=== PATIENT | female | born 1940 | race Caucasian/White ===

== ENCOUNTER 2019-12-29 10:27 | Emergency (ER) | payer MEDICARE, OTHER, SELFPAY ==
--- NOTE | ~2019-12-29 | XR_ITS ---
EXAMINATION: XR chest 2V DATE: 12/29/2019 10:57 INDICATION: Wheezing and difficulty breathing TECHNIQUE: frontal and lateral views of the chest were obtained. COMPARISON: Chest radiograph dated 04/15/2016 FINDINGS: Eventration at the anterior right hemidiaphragm. Calcified nodules in the left lower lung zone and ca lcified left hilar lymph nodes consistent with old granulomatous disease. No other airspace opacities , pulmonary edema, pleural effusion or pneumothorax. Cardiomediastinal silhouette is normal. Mitral a nnular calcification. Mild thoracolumbar spondylosis. IMPRESSION: 1. No acute cardiopulmonary disease. Reviewed, dictated and finalized at location A. [employer]OR [employer] D[employer] TECHN[employer]Y
[2019-12-29 10:41] VITALS: BP 125/52; PULSE 59; RESP 16; TEMP 36.9; O2SAT 97
--- NOTE | 2019-12-29 11:04 | ED.SOB ---
HPI - SOB/Dyspnea General Chief Complaint: Shortness of Breath/Dyspnea Stated Complaint: SOB Time Seen by Provider: 12/29/19 10:54 Source: patient and RN notes reviewed Mode of arrival: ambulatory Limitations: no limitations History of Present Illness HPI Narrative: Patient presents today with intermittent shortness of breath x2 years. States her shortness of breath is no worse than it normally is. She has not been using her rescue inhaler more frequently than normal. States that she talked to someone in her [facility] compounder office last week and was told to go to the hospital, so she came to express care instead. She does not know why they instructed her to go to the hospital. She has an appointment at her liquid comp[facility] office in 2 weeks. She does report some wheezing. States she has been told she has asthma in the past. Patient is a former smoker. Denies any additional symptoms. MD elicited complaint: shortness of breath Related Data Home Medications Medication Instructions Recorded Confirmed losartan 100 mg tablet 100 mg PO DAILY 12/04/19 12/29/19 oxybutynin chloride 5 mg tablet 5 mg PO BID 12/04/19 12/29/19 temazepam 30 mg capsule 30 mg PO ONCE PRN 12/04/19 12/29/19 aspirin 81 mg tablet,delayed 81 mg PO DAILY 12/26/19 12/29/19 release biotin 10,000 mcg capsule 10,000 mcg PO DAILY 12/26/19 12/29/19 citalopram 40 mg tablet 20 mg PO DAILY 12/26/19 12/29/19 fluticasone furoate 200 1 inhalation INHALATION DAILY 12/26/19 12/29/19 mcg-vilanterol 25 mcg/dose inhalation powder hypertonic nasal wash 1 spray NASAL ONCE 12/26/19 metformin 500 mg tablet 500 mg PO BID 12/26/19 12/29/19 multivitamin 1 tablet PO DAILY 12/26/19 12/29/19 ondansetron 8 mg disintegrating 8 mg PO Q8H 12/26/19 tablet ranitidine HCl 150 mg tablet 150 mg PO DAILY 12/26/19 12/29/19 triamcinolone acetonide 0.1 % 1 applic TOPICAL BID 12/26/19 topical ointment albuterol sulfate [Ventolin HFA] INHALATION 12/29/19 mirabegron [Myrbetriq] 50 mg PO DAILY 12/29/19 12/29/19 Allergies Allergy/AdvReac Type Severity Reaction Status Date / Time codeine Allergy Mild MAKES ME Verified 12/26/19 09:06 REALLY JUMPY Review of Systems Review of Systems: Narrative: CONSTITUTIONAL: Denies body aches, fever, chills, or sweats. EYES: Denies visual changes, redness, or discharge. ENT: Denies rhinorrhea, congestion, sore throat, or otalgia. CARDIOVASCULAR: Denies chest pain, palpitations, or edema. RESPIRATORY: Denies cough. + Shortness of breath GASTROINTESTINAL: Denies abdominal pain, nausea, vomiting, or diarrhea. GENITOURINARY: Denies dysuria or hematuria. SKIN: Denies rash, itching, or wounds. MUSCULOSKELETAL: Denies back pain, joint pain, or myalgia. NEUROLOGIC: Denies headache, numbness, tingling, or weakness. PSYCH: Denies depression or anxiety. [facility] Past Medical History Medical History (Updated 12/29/19 @ 11:31 by Veroniac Bartholomew, [facility], ) Asthma GERD (gastroesophageal reflux disease) Hypercholesterolemia Hypertension Surgical History Surgical History (Updated 12/26/19 @ 09:19 by Suzette Williamson [facility]) History of appendectomy History of eye surgery History of hernia repair History of splenectomy History of total bilateral knee replacement (TKR) Social History Social History (Updated 12/26/19 @ 09:18 by Suzette Williamson [facility]) Smoking status: Former smoker Second hand tobacco smoke exposure: No Smoking end date: 11/13/12 Alcohol intake: never Substance use: never Substance use type: does not use Gender identity (if verbalized by the patient): Female Comments At time of signature, I have reviewed and agree with nursing past medical, surgical, social and family history unless otherwise noted. Please see nursing chart for further information. There is no relevant family history pertinent to the presenting complaint Exam Narrative: Exam Narrative: GENERAL: Well-appearing, well-nourished, and in no acute dist
== END 2019-12-29 11:33 | disposition home or self-care (01) ==
PROVIDERS: Emergency Provider Nurse Practitioner; PCP Family Medicine
DX: R06.02 Shortness of breath (principal); Z87.891 Personal history of nicotine dependence; J45.909 Unspecified asthma, uncomplicated; K21.9 Gastro-esophageal reflux disease without esophagitis; E78.00 Pure hypercholesterolemia, unspecified; I10 Essential (primary) hypertension; Z96.653 Presence of artificial knee joint, bilateral
CPT/HCPCS: 71046; 99213; G0463

== ENCOUNTER → 2020-01-10 17:06 | Outpatient (CLI) | payer MEDICARE, OTHER, SELFPAY ==
--- NOTE | ~2020-01-10 | MM_ITS ---
EXAMINATION: MM screening evaristo BI w anup HISTORY: Screening mammogram TECHNIQUE: Craniocaudal and mediolateral oblique 3-D tomosynthesis images were obtained and synthetic 2-D images were generated. CAD analysis was submitted and interpreted. COMPARISON: 12/07/2018, 09/13/2017, 08/31/2016 bilateral digital screening mammogram examinations BREAST PARENCHYMAL COMPOSITION: The breasts are almost entirely fatty. FINDINGS: Stable benign-appearing bilateral intramammary lymph nodes. Occasional benign calcification s. There is no evidence of suspicious mass, calcification, or architectural distortion to suggest mal ignancy in either breast. There has been no suspicious interval change. IMPRESSION: 1. No mammographic evidence of malignancy. 2. Recommend routine screening mammography in one year. BI-RADS Category 2: Benign finding(s). Reviewed, dictated and finalized at location A. E MAKER
== END ==
PROVIDERS: PCP Family Medicine; Visit Provider Family Medicine
DX: Z12.31 Encounter for screening mammogram for malignant neoplasm of breast (principal)
CPT/HCPCS: 77063; 77067

== ENCOUNTER 2020-01-15 12:41 | Outpatient (CLI) | payer MEDICARE, OTHER, SELFPAY ==
--- NOTE | 2020-01-16 00:29 | WPDPFTINT ---
PFT Interpretation PFT Interpretation: DOS: 01/15/2020 REQUESTING: Dr. Schulte REASON FOR TESTING: Shortness of breath PULMONARY FUNCTION TESTS Results are reproducible. Spirometry: Normal FEV1, FVC, FEV1 % without change after bronchodilator. Lung volumes: Normal TLC. RV/TLC ratio is increased which is consistent with air trapping. Slow vital capacity 93% is higher than the FVC 80%, and this may indicate dynamic air trapping. Mild increase in airway resistance 158%. Diffusion: DLCO mildly decreased 68%. Flow volume loop: Unremarkable. IMPRESSION: Compared to 01/09/2019, values are similar. Normal spirometry without response to bronchodilator. Total lung capacity is higher now 92%, increased from 80%. Spirometry and DLCO are similar. Obstructive process is present with increased RV/TLC and dynamic air trapping. Lack of response to bronchodilator does not preclude use if clinically indicated. Mora Chapman MD
--- NOTE | 2020-01-16 00:40 | WPDSIXMINUTE ---
Six Minute Walk Six Minute Walk: DOS: 01/15/2020 REQUESTING: Emiliano Draper NP REASON FOR TESTING: Shortness of breath SIX MINUTE WALK This test was conducted per ATS guidelines. The test was conducted on room air. Initial saturation was 96%, pulse 58. The patient walked without stopping, completing 900 feet/274 meters. The ending saturation was 96%, and pulse was 75. IMPRESSION: This study shows no desaturation with walking, and normal distance walked for age. No supplemental oxygen indicated with exertion. Mora Chapman MD
== END 2020-01-15 12:42 | disposition home or self-care (01) ==
PROVIDERS: PCP Family Medicine; Visit Provider Internal Medicine Critical Care Medicine
DX: J44.9 Chronic obstructive pulmonary disease, unspecified (principal)
CPT/HCPCS: 94060; 94726; 94729

== ENCOUNTER 2020-07-11 11:06 | Emergency (ER) | payer MEDICARE, OTHER, SELFPAY ==
[2020-07-11 11:23] VITALS: BP 120/60; PULSE 65; RESP 20; TEMP 37.1; O2SAT 97
--- NOTE | 2020-07-11 12:19 | ED.URI ---
HPI - URI/Sore Throat General Chief Complaint: Upper Respiratory Infection <FRED Elena Last Filed: 07/11/20 12:24> Stated Complaint: ST <FRED Elena Last Filed: 07/11/20 12:24> Time Seen by Provider: 07/11/20 11:50 <FRED Elena Last Filed: 07/11/20 12:24> Source: patient <FRED Elena Last Filed: 07/11/20 12:24> Mode of arrival: ambulatory <FRED Elena Last Filed: 07/11/20 12:24> Limitations: no limitations <FRED Elena Last Filed: 07/11/20 12:24> History of Present Illness HPI Narrative: This is a 79 year old female that presents to the ER for sore throat x 1 week. Also reports congestion and sinus pain. Denies fever, cough, or shortness of breath. <FRED Elena Last Filed: 07/11/20 12:24> Related Data Home Medications: Home Medications Medication Instructions Recorded Confirmed aspirin 81 mg tablet,delayed 81 mg PO DAILY 12/26/19 03/31/20 release biotin 10,000 mcg capsule 10,000 mcg PO DAILY 12/26/19 03/31/20 hypertonic nasal wash 1 spray NASAL ONCE 12/26/19 03/31/20 multivitamin 1 tablet PO DAILY 12/26/19 03/31/20 ranitidine HCl 150 mg tablet 150 mg PO DAILY 12/26/19 03/31/20 triamcinolone acetonide 0.1 % 1 applic TOPICAL BID 12/26/19 03/31/20 topical ointment mirabegron [Myrbetriq] 50 mg PO DAILY 12/29/19 03/31/20 <FRED Elena Last Filed: 07/11/20 12:24> Allergies/Adverse Reactions: Allergies Allergy/AdvReac Type Severity Reaction Status Date / Time codeine Allergy Mild MAKES ME Verified 07/11/20 11:26 REALLY JUMPY <FRED Elena Last Filed: 07/11/20 12:24> Review of Systems Review of Systems: Narrative: CONSTITUTIONAL: Denies fever ENT: Reports rhinorrhea, congestion, sore throat RESPIRATORY: Denies cough or dyspnea. <Melanie Tavarez PA-C - Last Filed: 07/11/20 12:24> All systems reviewed & are unremarkable except as noted in HPI and below <Melanie Tavarez PA-C - Last Filed: 07/11/20 12:24> PMFSH Past Medical History Medical History: Medical History (Updated 07/11/20 @ 12:23 by Melanie Tavarez PA-C) Allergic rhinitis Anxiety Asthma Benign hypertension Benign paroxysmal positional vertigo, bilateral Cheilitis Chronic obstructive pulmonary disease Chronic sinusitis Cough due to JAMILA inhibitor Depressive disorder, not elsewhere classified DAQUAN (generalized anxiety disorder) GERD (gastroesophageal reflux disease) Hearing loss Hypercholesterolemia Hypertension Hyponatremia Impaired glucose tolerance Insomnia Migraine Obstructive sleep apnea Orthostatic hypotension Other and unspecified hyperlipidemia SOB (shortness of breath) Tobacco abuse Type 2 diabetes mellitus without complication, without long-term current use of insulin Umbilical hernia without obstruction or gangrene Unsteady gait Ventral hernia without obstruction or gangrene Vertigo <Melanie Tavarez PA-C - Last Filed: 07/11/20 12:24> Surgical History Surgical History: Surgical History History of appendectomy History of eye surgery History of hernia repair History of splenectomy History of total bilateral knee replacement (TKR) <Melanie Tavarez PA-C - Last Filed: 07/11/20 12:24> Social History Social History: Social History (Updated 01/01/20 @ 11:43 by Mark Hall CMA) Years smoked: 30 Smoking status: Former smoker Tobacco type: cigarettes Second hand tobacco smoke exposure: No Smoking end date: 11/13/12 Alcohol intake: never Substance use: never Substance use type: does not use Gender identity (if verbalized by the patient): Female <Melanie Tavarez PA-C - Last Filed: 07/11/20 12:24> Exam Narrative: Exam Narrative: GENERAL: Well-appearing, well-nourished, and in no acute distress. HEAD: Normocephalic, atraumatic. EYES: EOMI. ENT: Nares clear, no
[2020-07-11 13:36] VITALS: BP 124/62; PULSE 68; RESP 20; O2SAT 98
== END 2020-07-11 13:38 | disposition home or self-care (01) ==
LOC: ANHED 12:29
PROVIDERS: Emergency Provider Emergency Medicine; PCP Family Medicine
DX: J01.00 Acute maxillary sinusitis, unspecified (principal); I10 Essential (primary) hypertension; J44.9 Chronic obstructive pulmonary disease, unspecified; F32.9 Major depressive disorder, single episode, unspecified; F41.1 Generalized anxiety disorder; E78.00 Pure hypercholesterolemia, unspecified; G47.33 Obstructive sleep apnea (adult) (pediatric); E11.9 Type 2 diabetes mellitus without complications; Z79.82 Long term (current) use of aspirin; Z79.84 Long term (current) use of oral hypoglycemic drugs
CPT/HCPCS: 87081; 87880; 99283

== ENCOUNTER 2020-12-21 15:12 | Emergency (ER) | payer MEDICARE, OTHER, SELFPAY ==
--- NOTE | ~2020-12-21 | CT_ITS ---
EXAMINATION: 1. CT facial & cervical spine wo DATE: 12/21/2020 15:46 INDICATION: Head and facial injury post fall. TECHNIQUE: 1. Computed tomography (CT) of the maxillofacial region and of the cervical spine were performed with out intravenous contrast. Sagittal and coronal reconstructions of both regions were obtained. Automat ed exposure control and iterative reconstruction technique were employed. The dose-length product was 522 mGy-cm. COMPARISON: None. FINDINGS: Maxillofacial CT: Small right frontal scalp hematoma. No maxillofacial fractures. Changes of bilateral intraocular lens replacement. Small mucous retention cyst in the left frontal sinus. Mild mucosal thickening the ante rior bilateral ethmoid air cells. Mastoid air cells and middle ear cavities are clear bilaterally. Cervical spine CT: Straightening of the normal cervical lordosis. 2 mm anterolisthesis C7 on T1 and 1 mm anterolisthesis of T1 on T2. Vertebral body heights are normal. No fracture. 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 Moderate disc height loss at C2-C3, T1-T2 and T2-T3. Severe disc height loss at the intervening levels from C2-C3 through C7-T1. Atherosclerotic calcific a cyst at the bilateral caroti d bulbs, left greater than right. Cervical soft tissues are otherwise unremarkable. Visualized airway and apices of the lungs are clear.The following disc levels are specifically discussed: C2-C3: Disc is bulging. There is mild left and moderate right uncovertebral joint osteoarthritis. The re is severe bilateral facet joint osteoarthritis. There is old right neural foraminal stenosis. Ther e is mild central canal stenosis. C3-C4: Solid osseous fusion across the disc space and bilateral facet and uncovertebral joints. There is mild right and mild to moderate left neural foraminal stenosis. There is mild central canal steno sis. C4-C5: Posterior disc osteophyte complex with prominent ossification of the posterior longitudinal li gament. There is severe bilateral uncovertebral joint osteoarthritis. There is moderate right and sev ere left facet joint osteoarthritis. There is moderate bilateral neural foraminal stenosis. There is moderate central canal stenosis. C5-C6: Posterior disc osteophyte complex. There is severe bilateral uncovertebral joint osteoarthriti s. There is moderate left and severe right facet joint osteoarthritis. There is moderate bilateral ne ural foraminal stenosis. There is mild central canal stenosis. C6-C7: Posterior disc osteophyte complex. There is moderate left and severe right uncovertebral joint osteoarthritis. There is moderate left and severe right facet joint osteoarthritis. There is mild le ft and mild to moderate right neural foraminal stenosis. There is mild central canal stenosis. C7-T1: Posterior disc osteophyte complex. There is mild bilateral uncovertebral joint osteoarthritis. There is severe bilateral facet joint osteoarthritis. There is mild bilateral neural foraminal steno sis. There is mild central canal stenosis. IMPRESSION: 1. No acute maxillofacial or cervical osseous abnormality. 2. Severe cervical spondylosis. Reviewed, dictated and finalized at location A. MING OPERATOR
--- NOTE | ~2020-12-21 | CT_ITS ---
EXAMINATION: CT brain wo con DATE: 12/21/2020 15:45 INDICATION: Fall with facial injury TECHNIQUE: Computed tomography (CT) of the head was performed without intravenous contrast. Sagittal and coronal reconstructions were performed. The mA was adjusted according to patient size. Iterative reconstruction technique was employed. The dose-length product was 605.33 mGy-cm. COMPARISON: Brain MR dated 04/14/2016 FINDINGS: Small right frontal scalp hematoma. No fracture. No acute intracranial hemorrhage, acute infarction o r abnormal extra axial fluid collection. There is mild scattered white matter hypoattenuation consist ent with chronic small vessel ischemic disease. Symmetric prominence of the sulci consistent with mil d age-appropriate diffuse cerebral volume loss. Ventricles are normal and symmetric. No mass/mass eff ect. Changes of bilateral intraocular lens replacement. The orbits, paranasal sinuses and mastoid air cells are normal. IMPRESSION: 1. No fracture or acute intracranial process. 2. Age-related changes including mild diffuse volume loss and mild scattered white matter hypoattenua tion consistent with chronic small vessel ischemic disease. Reviewed, dictated and finalized at location A. CAMP ATTENDANT IMPRESSION: 1. No fracture or acute intracranial process. 2. Age-related changes including mild diffuse volume loss and mild scattered wh ite matter hypoattenuation consistent with chronic small vessel ischemic diseas e.
[2020-12-21 15:15] VITALS: BP 159/70; PULSE 60; RESP 16; TEMP 36.2; O2SAT 97
--- NOTE | 2020-12-21 16:24 | ED.HEATRA ---
HPI - Head Injury General Chief complaint: Head Injury Stated complaint: tripped, fell and hit head Time Seen by Provider: 12/21/20 15:55 Source: patient Mode of arrival: ambulatory Limitations: no limitations History of Present Illness HPI Narrative: This patient is a 79 year old female with history of diabetes and hypertension who presents for evaluation of a head injury. She states she was chasing after her dog when she tripped and fell. She fell forward hitting on face on concrete. She denies LOC. She has bruising and abrasions to her face. She denies neck pain, extremity pain. She denies any other complaints. She reports her last tetanus has been in past 5 years. Related Data Home Medications Medication Instructions Recorded Confirmed aspirin 81 mg tablet,delayed 81 mg PO DAILY 12/26/19 07/31/20 release biotin 10,000 mcg capsule 10,000 mcg PO DAILY 12/26/19 07/31/20 hypertonic nasal wash spray aerosol 1 spray NASAL ONCE 12/26/19 07/31/20 multivitamin 1 tablet PO DAILY 12/26/19 07/31/20 triamcinolone acetonide 0.1 % 1 applic TOPICAL BID 12/26/19 07/31/20 topical ointment mirabegron [Myrbetriq] 50 mg PO DAILY 12/29/19 07/31/20 collagen (bovine) 100 % topical % TOPICAL 07/16/20 07/31/20 powder in packet Allergies Allergy/AdvReac Type Severity Reaction Status Date / Time codeine Allergy Mild MAKES ME Verified 07/31/20 10:38 REALLY JUMPY Review of Systems Review of Systems: All systems reviewed & are unremarkable except as noted in HPI and below Constitutional: Constitutional: Denies chills and Denies fever(s) Cardiovascular: Cardiovascular: Denies chest pain Respiratory: Respiratory: Denies cough and Denies dyspnea Genitourinary: Genitourinary: Denies flank pain Musculoskeletal: Musculoskeletal: Denies back pain Neurologic: Denies dizziness, Denies syncope, Denies headache(s) and Denies focal weakness PMFSH Past Medical History Medical History Allergic rhinitis Anxiety Asthma Benign hypertension Benign paroxysmal positional vertigo, bilateral Cheilitis Chronic obstructive pulmonary disease Chronic sinusitis Cough due to JAMILA inhibitor Depressive disorder, not elsewhere classified DAQUAN (generalized anxiety disorder) GERD (gastroesophageal reflux disease) Hearing loss Hypercholesterolemia Hypertension Hyponatremia Impaired glucose tolerance Insomnia Migraine Obstructive sleep apnea Orthostatic hypotension Other and unspecified hyperlipidemia SOB (shortness of breath) Tobacco abuse She smoked about 5 cigs/day for about 40 years but was also exposed to second hand smoke from her and parents. No longer smoking, quit 2012. Type 2 diabetes mellitus without complication, without long-term current use of insulin Umbilical hernia without obstruction or gangrene Unsteady gait Ventral hernia without obstruction or gangrene Vertigo Surgical History Surgical History History of appendectomy History of eye surgery History of hernia repair History of splenectomy History of total bilateral knee replacement (TKR) Family History Family History Sibling Family history of elevated blood lipids Family history of malignant neoplasm Family history of coronary artery disease Family history of premature coronary heart disease Family history of cardiovascular disease Family history of heart disease in male family member before age 55 Father Family history of heart disease in male family member before age 55 Family history of cardiovascular disease Family history of coronary artery disease, Onset Age: 44 Mother Family history of heart disease in male family member before age 55 Family history of coronary artery disease Acute myocardial infarction Grandparent Diabetes mellitus Other Family history of arth
[2020-12-21 16:51] VITALS: BP 111/60; PULSE 56; RESP 20; O2SAT 95
== END 2020-12-21 16:53 | disposition home or self-care (01) ==
PROVIDERS: Emergency Provider General Practice
DX: S00.83XA Contusion of other part of head, initial encounter (principal); S00.31XA Abrasion of nose, initial encounter; J44.9 Chronic obstructive pulmonary disease, unspecified; I10 Essential (primary) hypertension; K21.9 Gastro-esophageal reflux disease without esophagitis; E78.00 Pure hypercholesterolemia, unspecified; G47.33 Obstructive sleep apnea (adult) (pediatric); Z87.891 Personal history of nicotine dependence; Z77.22 Contact with and (suspected) exposure to environmental tobacco smoke (acute) (chronic); Z96.653 Presence of artificial knee joint, bilateral; Z79.82 Long term (current) use of aspirin; M47.812 Spondylosis without myelopathy or radiculopathy, cervical region; W01.0XXA Fall on same level from slipping, tripping and stumbling without subsequent striking against object, initial encounter
CPT/HCPCS: 70450; 70486; 72125; 99284

== ENCOUNTER → 2021-07-13 10:41 | Outpatient (CLI) | payer MEDICARE, OTHER, SELFPAY ==
--- NOTE | ~2021-07-13 | MM_ITS ---
EXAMINATION: MM screening evaristo BI w anup HISTORY: Screening TECHNIQUE: Craniocaudal and mediolateral oblique 3-D tomosynthesis images were obtained and synthetic 2-D images were generated. CAD analysis was submitted and interpreted. COMPARISON: Comparison to multiple prior studies sequentially, with oldest reviewed study dated 08/06. BREAST PARENCHYMAL COMPOSITION: There are scattered areas of fibroglandular density. FINDINGS: There is no evidence of suspicious mass, calcification, or architectural distortion to sugg est malignancy in either breast. There has been no suspicious interval change. IMPRESSION: 1. No mammographic evidence of malignancy. 2. Recommend routine screening mammography in one year. BI-RADS Category 1: Negative Reviewed, dictated and finalized at location A.
== END ==
PROVIDERS: PCP Physician Assistant; Visit Provider Physician Assistant
DX: Z12.31 Encounter for screening mammogram for malignant neoplasm of breast (principal)
CPT/HCPCS: 77063; 77067

== ENCOUNTER → 2021-09-24 14:54 | Outpatient (CLI) | payer MEDICARE, OTHER, SELFPAY ==
--- NOTE | ~2021-09-24 | XR_ITS ---
EXAMINATION: XR foot LT min 3V DATE: 09/24/2021 15:06 INDICATION: Left foot pain TECHNIQUE: Dorsoplantar, lateral, and 2 oblique views of the left foot were obtained. COMPARISON: None. FINDINGS: There is no fracture, dislocation, or subluxation. Mild osteoarthritis is noted at the firs t metatarsophalangeal joint. There is moderate osteoarthritis of multiple interphalangeal joints. The soft tissues are unremarkable. Posterior and plantar calcaneal enthesophytes are noted. IMPRESSION: 1. Osteoarthritis without acute osseous abnormality. Reviewed, dictated and finalized at location B. CH THERAPIST TECHNICIAN
== END ==
PROVIDERS: PCP Family Medicine; Visit Provider Physician Assistant
DX: M19.072 Primary osteoarthritis, left ankle and foot (principal)
CPT/HCPCS: 73630

== ENCOUNTER 2021-12-08 09:33 | Outpatient (CLI) | payer MEDICARE, OTHER, SELFPAY ==
--- NOTE | 2021-12-08 09:48 | ECHO_ITS ---
Patient Info Name: Sonal Burleson Age: 80 years : 1940 Gender: Female Ht: 61 in Wt: 233 lbs BSA: 2.20 m2 HR: 61 bpm BP: 138 / 77 mmHg Heart Rhythm: Sinus Rhythm Technical Quality: Good Exam Date: 12/08/2021 10:12 AM Exam Location: [facility] Patient Status: Outpatient Admit Date: 12/08/2021 Staff Ordering Physician: Emiliano Draper APRN Lean Facilitator: Kala Wagner RDCS Attending Provider: Emiliano Draper APRN Referring Physician: Baron MAURICE; Exam Type: CA echo doppler color flow Study Info Indications - short of breath Complete two-dimensional, color flow and Doppler transthoracic echocardiogram is performed. Summary 1. Complete two-dimensional, color flow and Doppler transthoracic echocardiogram is performed. 2. Left ventricular chamber dimension is normal. 3. Left ventricular systolic function is normal, estimated at 60-65%. 4. There is mildly increased left ventricular wall thickness. 5. The left ventricular diastolic function is abnormal. 6. Left atrial chamber dimension is moderately enlarged. 7. There is mild aortic valve stenosis with a peak velocity of 195 cm/s, mean gradient of 9 mmHg, and aortic valve area of 1.9 cm2. Left Ventricle Left ventricular chamber dimension is normal. Left ventricular systolic function is normal, estimated at 60-65%. There is mildly increased left ventricular wall thickness. The left ventricular diastolic function is abnormal. Right Ventricle Right ventricular chamber dimension is normal. Right ventricular systolic function is normal. Left Atria Left atrial chamber dimension is moderately enlarged. Right Atria Right atrial chamber dimension is mildly enlarged. Aortic Valve The aortic valve is not well visualized. There is mild aortic valve stenosis with a peak velocity of 195 cm/s, mean gradient of 9 mmHg, and aortic valve area of 1.9 cm2. There is no aortic valve regurgitation. Pulmonic Valve The pulmonic valve is not well visualized. Mitral Valve The mitral valve has thickened leaflets. There is trace mitral valve regurgitation. The mitral valve annulus is severely calcified. Tricuspid Valve The tricuspid valve leaflets are normal. There is trace tricuspid valve regurgitation. No pulmonary hypertension, estimated pulmonary arterial systolic pressure is 30 mmHg. Pericardium/Pleural The pericardium appears epicardial fat pad. There is trivial pericardial effusion. Inferior Vena Cava Normal inferior vena cava with >50% collapse upon inspiration consistent with normal right atrial pressure, 5 mmHg. Aorta The aortic root size at the sinus of Valsalva is normal. There is mild aortic atherosclerosis. Left Ventricular Outflow Tract Name Value Normal LVOT 2D LVOT Diameter 2.0 cm LVOT Doppler LVOT Peak Gradient 5 mmHg LVOT Mean Gradient 3 mmHg LVOT VTI 29 cm LVOT VTI/AV VTI Ratio 0.6 LVOT Stroke Volume 92 ml LVOT CO 15.9 l/min
== END 2021-12-08 09:34 | disposition home or self-care (01) ==
LOC: ANHCARD 09:34
PROVIDERS: PCP Family Medicine; Visit Provider Nurse Practitioner Family
DX: R06.02 Shortness of breath (principal); R93.1 Abnormal findings on diagnostic imaging of heart and coronary circulation; I51.7 Cardiomegaly
CPT/HCPCS: 93306

== ENCOUNTER 2022-05-06 08:16 | Emergency (ER) | payer MEDICARE, OTHER, SELFPAY ==
[2022-05-06 08:23] VITALS: BP 147/66; PULSE 62; RESP 18; TEMP 36.7; O2SAT 97
--- NOTE | 2022-05-06 09:05 | ED.GENADULT ---
HPI - General Adult General Chief complaint: Extremity Problem,Nontraumatic Stated complaint: bilateral hip pain - unable to sleep due to pain Time Seen by Provider: 05/06/22 08:20 History of Present Illness HPI narrative: Patient is an 81-year-old female who presents ER with bilateral hip pain. Reports she has history of severe osteoarthritis. She has seen her orthopedic surgeon Dr. Fritz and he reports she needs to lose 18 pounds before she can have a hip replacement. Patient struggled with dieting. She reports has been taking Tylenol for her pain. She has no new swelling or fevers or chills. No recent falls or injuries. Reports she is unable to sleep last night despite taking her insomnia medication so she came in to receive pain medication and sleep medication. Related Data Home Medications Medication Instructions Recorded Confirmed aspirin 81 mg tablet,delayed 81 mg PO DAILY 12/26/19 04/04/22 release (Adult Low Dose Aspirin) biotin 10,000 mcg capsule 10,000 mcg PO DAILY 12/26/19 04/04/22 multivitamin (Daily Multi-Vitamin 1 tablet PO DAILY 12/26/19 04/04/22 tablet) triamcinolone acetonide 0.1 % 1 applic topical BID 12/26/19 04/04/22 topical ointment mirabegron 50 mg tablet,extended 50 mg PO DAILY 12/29/19 04/04/22 release 24 hr (Myrbetriq) collagen (bovine) 100 % topical % topical 07/16/20 04/04/22 powder in packet oxybutynin chloride 5 mg tablet 5 mg PO DAILY 11/24/21 04/04/22 Allergies Allergy/AdvReac Type Severity Reaction Status Date / Time codeine Allergy Mild MAKES ME Verified 04/04/22 11:41 REALLY JUMPY Review of Systems Review of Systems: All systems reviewed & are unremarkable except as noted in HPI and below Constitutional: Constitutional: Denies chills, Reports fatigue and Denies fever(s) Musculoskeletal: Musculoskeletal: Reports arthralgias, Denies joint swelling and Denies muscle cramps Neurologic: Denies syncope, Denies focal weakness and Reports numbness (chronic) [facility] Past Medical History Medical History Allergic rhinitis Anxiety Asthma Benign hypertension Benign paroxysmal positional vertigo, bilateral Cheilitis Chronic obstructive pulmonary disease Chronic sinusitis Cough due to JAMILA inhibitor Depressive disorder, not elsewhere classified DAQUAN (generalized anxiety disorder) GERD (gastroesophageal reflux disease) Hearing loss Hypercholesterolemia Hypertension Hyponatremia Impaired glucose tolerance Insomnia Migraine Obstructive sleep apnea Orthostatic hypotension Other and unspecified hyperlipidemia SOB (shortness of breath) Tobacco abuse She smoked about 5 cigs/day for about 40 years but was also exposed to second hand smoke from her and parents. No longer smoking, quit 2012. Type 2 diabetes mellitus without complication, without long-term current use of insulin Umbilical hernia without obstruction or gangrene Unsteady gait Ventral hernia without obstruction or gangrene Vertigo Surgical History Surgical History History of appendectomy History of eye surgery History of hernia repair History of splenectomy History of total bilateral knee replacement (TKR) Family History Family History Sibling Family history of elevated blood lipids Family history of malignant neoplasm Family history of coronary artery disease Family history of premature coronary heart disease Family history of cardiovascular disease Family history of heart disease in male family member before age 55 Father Family history of heart disease in male family member before age 55 Family history of cardiovascular disease Family history of coronary artery disease, Onset Age: 44 Mother Family history of heart disease in male family member before age 55 Family history of coronary artery disease Ac
== END 2022-05-06 09:37 | disposition home or self-care (01) ==
PROVIDERS: Emergency Provider Emergency Medicine; PCP Family Medicine
DX: M25.552 Pain in left hip (principal); M25.551 Pain in right hip; G89.29 Other chronic pain; G47.00 Insomnia, unspecified; J44.9 Chronic obstructive pulmonary disease, unspecified; I10 Essential (primary) hypertension; E11.9 Type 2 diabetes mellitus without complications; E78.00 Pure hypercholesterolemia, unspecified; J32.9 Chronic sinusitis, unspecified; K21.9 Gastro-esophageal reflux disease without esophagitis; G47.33 Obstructive sleep apnea (adult) (pediatric); M19.90 Unspecified osteoarthritis, unspecified site; F32.A Depression, unspecified; F41.1 Generalized anxiety disorder; Z79.82 Long term (current) use of aspirin; Z96.653 Presence of artificial knee joint, bilateral; Z90.81 Acquired absence of spleen; Z87.891 Personal history of nicotine dependence; Z79.84 Long term (current) use of oral hypoglycemic drugs
CPT/HCPCS: 99283

== ENCOUNTER 2022-06-02 14:16 | Outpatient (CLI) | payer MEDICARE, OTHER, SELFPAY ==
--- NOTE | ~2022-06-02 | US_ITS ---
US arterial ankle brachial ind INDICATION: Diabetes. Elevated cholesterol. History of smoking. Loss of hair. Claudication. TECHNIQUE: Segmental pressures and plethysmographic and Doppler waveforms of the brachial and lower e xtremity arteries were obtained. COMPARISON: None. FINDINGS: Right and left brachial artery pressures of 120 mm Hg and 122 mm Hg, respectively, are concordant (no rmal difference <= 30 mmHg). The right ankle-brachial index (CARLOS) is 1.25 (normal >= 0.9-1.0). The right great toe-brachial index (TBI) is 0.41 (normal >= 0.60). The left CARLOS is 1.12. The left TBI is 0.33. IMPRESSION: 1. Normal bilateral ankle-brachial indices. 2: Diminished bilateral toe brachial indices consistent with peripheral arterial disease below the an kles. Reviewed, dictated and finalized at location A. IMPRESSION: 1. Normal bilateral ankle-brachial indices. 2: Diminished bilateral toe brachial indices consistent with peripheral arteria l disease below the ankles.
== END 2022-06-02 14:17 | disposition home or self-care (01) ==
PROVIDERS: PCP Family Medicine; Visit Provider Physician Assistant
DX: R09.89 Other specified symptoms and signs involving the circulatory and respiratory systems (principal)
CPT/HCPCS: 93922

== ENCOUNTER 2022-09-21 09:15 | Outpatient (RCR) | payer MEDICARE, OTHER, SELFPAY | END 2022-10-03 09:55 | disposition home or self-care (01) | LOC: ANHDMC 09:15 | PROVIDERS: PCP Family Medicine; Referring Provider Physician Assistant; Visit Provider Physician Assistant | DX: E11.9 Type 2 diabetes mellitus without complications (principal); Z71.89 Other specified counseling | CPT/HCPCS: 99199; G0108 ==

== ENCOUNTER 2022-12-06 10:43 | Outpatient (CLI) | payer MEDICARE, OTHER, SELFPAY ==
--- NOTE | 2022-12-06 11:26 | ECG_ITS ---
Measurements Intervals Fried[place] Rate: 86 P: -38 IL: 190 QRS: 5 QRSD: 98 T: 31 QT: 376 QTc: 450 Interpretive Statements ECTOPIC ATRIAL RHYTHM ATRIAL PREMATURE COMPLEXES ABNORMAL ECG COMPARED TO ECG 06/18/2019 11:43:42 NO SIGNIFICANT CHANGES Electronically Signed On 12-06-2022 12:17:52 VENDING ENTERPRISES SUPERVISOR by Roc Salomon D.O.
[2022-12-06 11:39] LABS: Hematocrit 39.1 % (37.0-47.0); Hemoglobin 13.2 g/dL (12.0-15.0)
[2022-12-06 11:49] LABS: Albumin Level 4.5 g/dL (3.5-5.1); Estimated Glomerular Filt Rate > 60; Glucose 99 mg/dL (65-110)
[2022-12-06 11:50] LABS: Hemoglobin A1C 5.3 % (<5.7)
[2022-12-06 11:53] LABS: Urine Cotinine NEGATIVE
== END 2022-12-06 10:44 | disposition home or self-care (01) ==
LOC: ANHLAB 10:47
PROVIDERS: PCP Family Medicine; Visit Provider Orthopaedic Surgery
DX: I10 Essential (primary) hypertension (principal); R94.31 Abnormal electrocardiogram [ECG] [EKG]; I35.0 Nonrheumatic aortic (valve) stenosis; E11.9 Type 2 diabetes mellitus without complications; R42 Dizziness and giddiness; M16.11 Unilateral primary osteoarthritis, right hip; E78.00 Pure hypercholesterolemia, unspecified; Z79.899 Other long term (current) drug therapy
CPT/HCPCS: 80307; 82040; 82565; 82947; 83036; 85014; 85018; 93005

== ENCOUNTER 2023-01-10 10:30 | Outpatient (RCR) | payer MEDICARE, OTHER, SELFPAY | END 2023-03-30 08:32 | disposition home or self-care (01) | LOC: ANHDMC 10:30 | PROVIDERS: PCP Family Medicine; Referring Provider Physician Assistant; Visit Provider Physician Assistant | DX: E11.65 Type 2 diabetes mellitus with hyperglycemia (principal); Z71.89 Other specified counseling | CPT/HCPCS: G0108 ==

== ENCOUNTER 2023-02-06 11:55 | Outpatient (CLI) | payer MEDICARE, OTHER, SELFPAY ==
[2023-02-06 13:41] LABS: Basophils Absolute Auto 0.1 K/mm3 (0.0-0.1); Eosinophils Absolute Auto 0.5 K/mm3 (0-0.3); Eosinophils Percent Auto 4.7 % (0-4.4); Hematocrit 41.2 % (37.0-47.0); Hemoglobin 13.6 g/dL (12.0-15.0); Immature Granulocyte Absolute 0.01 K/mm3 (0.00-0.031); Immature Granulocyte Percent A 0.1 % (0-0.5); Lymphocytes Absolute Auto 3.51 K/mm3 (0.9-3.2); Lymphocytes Percent Auto 32.6 % (18.3-44.2); Mean Corpuscular Hemoglobin 32.9 pg (26-34); Mean Corpuscular Volume 99.5 fl (80-100); Mean Platelet Volume 9.1 fl (7.4-10.4); Monocytes Absolute Auto 0.9 K/mm3 (0.1-0.6); Monocytes Percent Auto 8.6 % (2.6-8.5); Neutrophils Absolute Auto 5.7 K/mm3 (1.3-6.7); Platelet Count Result 392 k/mm3 (150-375); Red Blood Count 4.14 M/mm3 (4.2-5.4); Red Cell Distribution Width 13.6 % (11.5-14.5); White Blood Count 10.8 K/mm3 (4.5-10.0)
[2023-02-06 13:59] LABS: Albumin Level 4.5 g/dL (3.5-5.1)
[2023-02-06 14:02] LABS: Anion Gap 7 mmol/L (8-16); Blood Urea Nitrogen 14 mg/dL (7-17); Calcium 9.7 mg/dL (8.4-10.2); Carbon Dioxide 31 mmol/L (22-30); Chloride 94 mmol/L (98-107); Estimated Glomerular Filt Rate > 60; Glucose 94 mg/dL (65-110); Sodium 132 mmol/L (137-145)
[2023-02-06 14:55] LABS: Urine Cotinine NEGATIVE
== END 2023-02-06 11:56 | disposition home or self-care (01) ==
LOC: ANHSURGERY 12:01
PROVIDERS: Anesthesiology; PCP Family Medicine; Visit Provider Orthopaedic Surgery
DX: Z01.812 Encounter for preprocedural laboratory examination (principal); M16.11 Unilateral primary osteoarthritis, right hip; E11.9 Type 2 diabetes mellitus without complications
CPT/HCPCS: 36415; 80048; 80307; 82040; 85025; 87081

== ENCOUNTER 2023-03-02 01:43 | Day surgery (SDC) | payer MEDICARE, OTHER, SELFPAY ==
[2023-02-06 12:02] VITALS: BMI 34.0
--- NOTE | 2023-02-06 12:41 | PC.NURSE ---
Report to the Outpatient Waiting Room, entrance under the green pavilion located off [facility], at time __0630 on date __03/02/23 . Planned Procedure Time: 829 . Time changes happen often and if your time is changed the preop area will call you the afternoon before. - You and your visitor will be asked to self-screen and do not enter if you have any COVID symptoms. - Only one visitor is requested with a max of two and NO children visitors are allowed at this time. - The patient visitor may be requested to leave or wait in car when not with patient due to distancing restrictions. - A mask is optional within the hospital at this time. Patients may have clear liquids (water, carbonated beverages, clear teas, apple juice) until 3 hours prior to surgery with a maximum of 20 ounces. - No food from midnight until time of surgery - Infants may have breast milk until 4 hours before surgery, formula 6 hours prior to surgery. - Children will be allowed to drink immediately following surgery. If applicable, please bring a bottle or sippy cup to assist with drinking. Juice, water, soda, and popsicles are readily available. For infants on formula, please bring formula the day of surgery. Pacifiers are allowed. Take the following medications with a SIP of water the morning of surgery: ___BREO INHALER,CITALOPRAM, DO NOT STOP ANY OF YOUR OTHER PRESCRIPTION MEDICATIONS PRIOR TO SURGERY ?EXCEPT THE FOLLOWING Medications to discontinue per physician ASPIRIN 7 DAYS PRE OP PER DR MCCRARY.LAST DOSE 02/22/23___ALL VITAMINS/SUPPLEMENTS 3 DAYS PRE OP LAST DOSE 02/26/23 Please no make-up, nail mauritian, hairspray, perfume, deodorant, or body powder the day of surgery. No jewelry (including any body piercings) or valuables the day of surgery, leave them at home. Please take a shower or bath the night before, or the morning of, surgery with an antibacterial soap. Wear comfortable, loose fitting clothing. Children are encouraged to wear pajamas. - Jewelry must be removed prior to entering the operating room. Rings and piercings that are not removed may be cut off. - The hospital will not accept responsibility for valuables. - Please leave all valuables, including medications, at home the day of surgery. If you are going home after surgery, a licensed rivet driver must drive you home. - NO public transportation without another adult if you receive anesthesia. - We recommend that an adult stay with you for 24 hours following discharge. - We also recommend that you do not drive, make important decision, drink alcoholic beverages, or take any drugs that were not prescribed by your health care provider for at least 24 hours after your discharge time. For Pediatric surgeries, we recommend two adults accompany the child home. Follow any additional instructions given to you from your surgeon. If you or anyone in your household have experienced Covid symptoms in the past week, please notify your surgeon or the nurse liaison at the phone number below for possible testing. VERBALAND WRITTEN instructions given to _PATIENT AND SON MARK and asked if any additional questions and then verbalized understanding. Patient advised to call surgeon office or pre surgery nurse liaison [phone] if any additional questions.
[2023-02-06 13:01] VITALS: BP 111/73; PULSE 93; RESP 18; TEMP 36.4; O2SAT 97
[2023-03-02] VITALS (12 sets, daily range): BP systolic 91–121; BP diastolic 56–81; PULSE 90–115; RESP 12–18; TEMP 36.2–37.1; O2SAT 92–96; BMI 33.4
--- NOTE | ~2023-03-02 | XR_ITS ---
XR hip RT min 2V DATE: 03/02/2023 11:10 INDICATION: Right total hip replacement TECHNIQUE: AP and crosstable lateral views COMPARISON: None FINDINGS: There is expected postoperative subcutaneous and intra-articular emphysema. Status post right femoral head and neck were resection and right total hip replacement. Normal alignm ent at the right hip joint. No fracture or dislocation, periosteal reaction or bone destruction. Osteopenia. IMPRESSION: Postoperative examination following right total hip arthroplasty Reviewed, dictated and finalized at location L.
[2023-03-02] MEDS: LACTATED RINGERS 1,000 ML 30 ML IV CONT ×2 (07:10→10:45)
[2023-03-02] MEDS: TRANEXAMIC ACID 1,000MG/ISO100 1,000 MG/100 ML BAG 200 MG IVPB (07:13)
[2023-03-02] MEDS: ACETAMINOPHEN 500 MG TABLET 1000 MG PO ×4 (07:13→23:30)
[2023-03-02 07:19] LABS: Glucose Point of Care 104 mg/dl (65-105)
--- NOTE | 2023-03-02 07:21 | WPDANESEPPF ---
Anes - Initial Pre Proc Eval Procedure: Operation Date: 03/02/23 08:30 Proposed Procedures p Right Total Hip Arthroplasty - Kirill Villanueva MD Date/Time: 03/02/23 07:21 Surgeon: Kirill Villanueva MD Pre Op Diagnosis: primary OA right hip Patient Data Age: 82 Gender: F Height: 1.55 m Weight: 80.3 kg Last Vital Signs Temp 36.4 C L 02/06/23 13:01 Pulse 93 02/06/23 13:01 Resp 18 02/06/23 13:01 BP 111/73 02/06/23 13:01 Pulse Ox 97 02/06/23 13:01 O2 Del Method Room Air 02/06/23 13:01 Allergies Allergy/AdvReac Type Severity Reaction Status Date / Time codeine Allergy Mild MAKES ME Verified 03/02/23 07:25 REALLY JUMPY Home Medications Medication Instructions Recorded Confirmed Type lancets (Accu-Chek Fastclix Lancet #100 ea 12/16/19 02/06/23 Rx Drum) aspirin 81 mg tablet,delayed 81 mg PO DAILY 12/26/19 02/06/23 History release (Adult Low Dose Aspirin) biotin 10,000 mcg capsule 10,000 mcg PO DAILY 12/26/19 02/06/23 History mirabegron 50 mg tablet,extended 50 mg PO DAILY 12/29/19 02/06/23 History release 24 hr (Myrbetriq) collagen (bovine) 100 % topical 1 ea topical DAILY 07/16/20 02/06/23 History powder in packet oxybutynin chloride 5 mg tablet 5 mg PO DAILY 11/24/21 02/06/23 History albuterol sulfate 2.5 mg/3 mL 2.5 mg (3 mL) inhalation Q4-6H PRN 01/12/22 02/06/23 Rx (0.083 %) solution for nebulization shortness of breath or wheezing #90 mL blood sugar diagnostic (Accu-Chek #100 ea 04/22/22 02/06/23 Rx Guide test strips) atorvastatin 10 mg tablet 10 mg PO DAILY #90 tabs 10/19/22 02/06/23 Rx citalopram 40 mg tablet See Rx Instructions .Route 10/19/22 02/06/23 Rx .COMPLEX #90 tabs metformin 500 mg tablet 500 mg PO BID #180 tabs 10/19/22 02/06/23 Rx albuterol sulfate 90 mcg/actuation See Rx Instructions .Route 10/31/22 02/06/23 Rx aerosol inhaler .COMPLEX #8.5 grams meclizine 25 mg tablet See Rx Instructions .Route 11/16/22 02/06/23 Rx .COMPLEX #90 tabs nortriptyline 10 mg capsule 20 mg PO QHS PRN pain #60 caps 12/13/22 02/06/23 Rx cilostazol 100 mg tablet 100 mg PO BID #60 tabs 12/15/22 02/06/23 Rx losartan 100 mg tablet See Rx Instructions .Route 01/17/23 02/06/23 Rx .COMPLEX #90 tabs montelukast 10 mg tablet See Rx Instructions .Route 01/17/23 02/06/23 Rx .COMPLEX #90 tabs temazepam 30 mg capsule 30 mg PO .qhs PRN sleep #30 caps 01/18/23 02/06/23 Rx cholecalciferol (vitamin D3) 25 25 mcg PO DAILY DAILY 02/06/23 02/06/23 History mcg (1,000 unit) capsule sodium chloride 0.65 % nasal spray 1 spray intranasal BID PRN Allergy 02/06/23 02/06/23 History aerosol (Saline Nose) Symptoms tramadol 50 mg tablet 50 mg PO Q8H PRN pain #40 tabs 02/09/23 Rx fluticasone furoate 200 See Rx Instructions .Route 02/20/23 Rx mcg-vilanterol 25 mcg/dose .COMPLEX #60 ea inhalation powder (Breo Ellipta) Laboratory Tests 03/02/23 07:15 POC Capillary Glucose 104 mg/dl mg/dl (65-105) Patient hx anesthesia problems: none Family hx anesthesia problems: none Results Review: All pre-operative results and documents have been reviewed as part of the pre-operative evaluation. [facility] Past Medical History Medical History Allergic rhinitis Anxiety Aortic valve sclerosis Asthma Benign hypertension Benign paroxysmal positional vertigo, bilateral Chronic obstructive pulmonary disease Cough due to JAMILA inhibitor Depressive disorder, not elsewhere classified DAQUAN (generalized anxiety disorder) GERD (gastroesophageal reflux disease) Hearing loss Hypercholesterolemia Hypertension Insomnia Migraine Obstructive sleep apnea SOB (shortness of breath) Tobacco abuse She smoked about 5 cigs/day for about 40 years but was also exposed to second hand smoke from her and parents. No longer smoking, quit 2012. Type 2 diabetes mellitus without complication, without long-term current
--- NOTE | 2023-03-02 08:18 | WPDHPUPDATE1 ---
History and Physical Update Update Date/Time: 03/02/23 08:18 History and Physical has been reviewed, including an updated exam of the patient. There are NO changes in the patient's condition. Risks, benefits, and alternatives have been discussed and questions answered. Patient agrees to proceed with procedure.
[2023-03-02] MEDS: ceFAZolin 2 GM/D5W 50 ML 2 GM/50 ML BAG IVPB ×3 (08:22→23:30)
[2023-03-02] MEDS: TRANEXAMIC ACID 1,000 MG/10 ML AMPUL 1000 MG IV PUSH (10:10)
[2023-03-02 10:58] LABS: Glucose Point of Care 173 mg/dl (65-105)
[2023-03-02] MEDS: fentaNYL CITRATE INJ (*CRX) 100 MCG/2 ML VIAL 25 MCG IV PUSH ×2 (11:09→11:39)
--- NOTE | 2023-03-02 12:11 | ADMGEN ---
This patient, Sonal Burleson, was admitted to 3 Med Surg Room 324-01. Patient/family oriented to hospital policies and general routines including ID bracelet, bed and alarms, visiting hours, pain management, procedures, bathroom and other care routines, personal items, smoking policy, room service/diet, and visiting hours. Information on how to activate the Rapid Response Team has been discussed. Patient/Family are encouraged to report perceived risks to care and to ask questions if they do not understand what they are told or what they should do.
[2023-03-02] MEDS: ASPIRIN 81 MG ENTERIC TABLET PO ×2 (13:08→17:08)
[2023-03-02] MEDS: polyethylene glycoL 3350 17 GM POWD.PACK PO (13:08)
[2023-03-02] MEDS: FAMOTIDINE 20 MG TABLET PO ×2 (13:09→20:36)
[2023-03-02] MEDS: cilostazoL 100 MG TABLET PO ×2 (13:09→17:08)
[2023-03-02] MEDS: ATORVASTATIN 10 MG TABLET PO (13:09)
[2023-03-02] MEDS: SENNA/DOCUSATE SODIUM TABLET 2 TAB PO ×2 (13:09→20:36)
[2023-03-02] MEDS: metFORMIN HCL 500 MG TABLET PO ×2 (13:09→17:08)
[2023-03-02] MEDS: MIRABEGRON 50 MG ER TABLET PO (13:09)
[2023-03-02] MEDS: MELOXICAM 7.5 MG TABLET PO ×2 (13:09→17:08)
[2023-03-02] MEDS: oxyBUTYnin CHLORIDE 5 MG TABLET PO (13:10)
[2023-03-02] MEDS: SODIUM CHLORIDE 0.9% IV 1,000 ML 125 ML IV CONT (13:10)
[2023-03-02] MEDS: CITALOPRAM HYDROBROMIDE 20 MG TABLET PO (13:10)
--- NOTE | 2023-03-02 14:25 | PM.IMCN ---
Assessment and Plan Assessment and plan (1) Status post total hip replacement, right: Code(s): Z96.641 - Presence of right artificial hip joint Status: Acute Assessment and Plan: Postop care per orthopedic physician The patient stated that she does not believe that she could rehab at home that she would be best served in a rehab facility. The patient walked with a walker before and is having difficulty walking today. She is going to try to use the bedside commode. She does not feel that she can ambulate very far with a walker today. The patient has been evaluated by PT and OT. I did order a respiratory care technician consult. DVT prophylaxis per orthopedic physician. The patient does have TEDs and SCDs on. Analgesics per orthopedic physician, she is on Tylenol, Mobic, oxycodone, and tramadol Wound care per orthopedic physician (2) Aortic valve sclerosis: Code(s): I35.8 - Other nonrheumatic aortic valve disorders Status: Acute Assessment and Plan: Continue with outpatient follow-up per Cardiology. (3) Hypercholesterolemia: Code(s): E78.00 - Pure hypercholesterolemia, unspecified Status: Acute Assessment and Plan: Continue with Lipitor (4) Hypertension: Qualifiers: Hypertension type: essential hypertension Qualified Code(s): I10 - Essential (primary) hypertension Code(s): I10 - Essential (primary) hypertension Status: Acute Assessment and Plan: Continue with losartan (5) GERD (gastroesophageal reflux disease): Code(s): K21.9 - Gastro-esophageal reflux disease without esophagitis Status: Acute Assessment and Plan: Continue with Pepcid (6) Asthma: Qualifiers: Asthma severity: moderate Asthma persistence: persistent Asthma complication type: uncomplicated Qualified Code(s): J45.40 - Moderate persistent asthma, uncomplicated Code(s): J45.909 - Unspecified asthma, uncomplicated Status: Acute Assessment and Plan: Xopenex p.r.n. (7) Vertigo: Code(s): R42 - Dizziness and giddiness Status: Acute Assessment and Plan: The patient stated that she was only taking meclizine once a day. She stated that she feels dizzy today which is a chronic thing and probably will need to take it at least 3 times a day. Has been ordered t.i.d. p.r.n.. (8) Type 2 diabetes mellitus without complication, without long-term current use of insulin: Code(s): E11.9 - Type 2 diabetes mellitus without complications Status: Acute Assessment and Plan: Check A1c. The patient was restarted on metformin. Continue to monitor BMPs. Accu-Cheks AC and HS. Sliding scale insulin with hypoglycemic protocol (9) Obstructive sleep apnea: Code(s): G47.33 - Obstructive sleep apnea (adult) (pediatric) Status: Acute Assessment and Plan: Continue with CPAP/BiPAP as she uses at home. (10) DAQUAN (generalized anxiety disorder): Code(s): F41.1 - Generalized anxiety disorder Status: Acute Assessment and Plan: Continue with Celexa (11) Depressive disorder, not elsewhere classified: Code(s): F32.9 - Major depressive disorder, single episode, unspecified Status: Acute (12) Chronic obstructive pulmonary disease: Qualifiers: COPD type: unspecified COPD Qualified Code(s): J44.9 - Chronic obstructive pulmonary disease, unspecified Code(s): J44.9 - Chronic obstructive pulmonary disease, unspecified Status: Acute Assessment and Plan: P.r.n. Xopenex and continue with Singulair Plan I thank orthopedic physician for allowing the hospitalist group to consult on this patient. We will continue to comanage alongside you. In the event that you have any questions or concerns please reach out to us at any time. HPI Data of Consult Consult date: 03/02/23 Requesting Physician: Kirill Villanueva MD Primary Care Provider: Kendra Adrian MD
--- NOTE | 2023-03-02 16:36 | W.PM.PROC2 ---
Procedure Note - Detailed Date of Procedure 03/02/23 Pre-op Diagnosis primary OA right hip Post-op Diagnosis Same Procedure Performed Right Total Hip Arthroplasty Surgeon Kirill Villanueva MD Hand Bootmaker Gisel Morales PA-C Anesthesia General Findings Acetabular moderate protrusio and anterior erosions. Satisfactory bone quality. Very stiff preoperatively. Impinging osteophytes removed. EBL 600mL. Description of Procedure The patient was given preoperative antibiotics. A general anesthetic was administered. The patient was carefully placed in the lateral decubitus position on the PEG board. The shoulders and hips were carefully positioned for component and leg length positioning reference. The hip was prepped and draped in the usual sterile fashion. A longitudinal incision was created over the posterior aspect of the greater trochanter. Careful dissection was brought down through the deep fascia with electrocautery. A minimally invasive optimized posterior approach to the hip was performed. The short external rotators and capsule were taken down in an L-shaped capsulotomy. The tissue was tagged for later repair using number 2 high strength suture. The femoral neck was measured and taken in situ. The femoral head was removed. The acetabulum was carefully exposed. The inferior capsule was released. The labrum was resected. The acetabulum was sequentially reamed to one under the cup size. The cup was impacted into position with good press-fit. 2 supplemental screws placed. Typical anatomic landmarks, including the bony contact points as well as the inferior transverse acetabular ligament were used to confirm cup positioning with preoperative templating. Attention was turned to the femur, which was carefully exposed. The hip was reamed and then broached sequentially. Excellent press-fit was obtained with the broach. The hip was trialed. Measurements were utilized, including the lesser trochanter as well as the center of the femoral head and the tip of the trochanter, and excellent assessment of the offset and leg lengths were confirmed. The real component was impacted into position. Trialing confirmed appropriate leg length and offset with soft tissue balancing as well apparent feel of the leg, both at the knee and the heel. Soft tissues were assessed using the the iliotibial band. Reduction of the posterior capsule and external rotators were also used as a secondary assessment. The hip was copiously irrigated with pulsatile lavage antibiotic solution periodically throughout the procedure. The real components were then assembled and reduced. The hip was stable throughout typical maneuvers, including extension, external rotation to 70 degrees, the position of sleep as well as flexion to 90 degrees with internal rotation past 45 degrees. The shake test confirmed stability without impingement. Osteophytes were removed as necessary. The short external rotators and capsule were repaired back to the posterior trochanter through drill holes. The deep fascia was repaired with running number 2 Quill suture, followed by 0 Stratafix suture and 2-0 Stratafix suture in the dermis. Steri-Strips were placed on the skin, followed by a sterile silver occlusive dressing. There were no complications. Meticulous hemostasis was maintained with the AquaMantys device. The patient was brought to the recovery room in stable condition. There were no complications. Physician printing bindery assistant, Gisel Morales PA-C, required for surgery; including patient positioning, draping, tissue retraction, maintaining instrument position, hip dislocation/ relocation, wound closure, and dressing placement. Implants The Accolade II hip stem, 127 degree size 5 , was utilized with excellent press-fit. The 52 mm Trident II acetabular component was impacted with excellent press-fit stability. 10 degree elevated liner. The +2.5, 36 mm Biolox ceramic femoral head was utilized. Estimated Bl
[2023-03-02] MEDS: MONTELUKAST SODIUM 10 MG TABLET PO (17:09)
[2023-03-02] MEDS: TEMAZEPAM (*CRX) 15 MG CAPSULE 30 MG PO (20:35)
[2023-03-02] MEDS: traMADol HCL (*CRX) 50 MG TABLET PO (20:36)
[2023-03-02 20:38] LABS: Glucose Point of Care 209 mg/dl (65-105)
[2023-03-03 00:08] VITALS: BP 117/59; PULSE 90; RESP 16; TEMP 36.2; O2SAT 93
[2023-03-03] MEDS: ACETAMINOPHEN 500 MG TABLET 1000 MG PO ×3 (05:12→16:56)
[2023-03-03 05:29] VITALS: BP 91/58; PULSE 84; RESP 16; TEMP 35.9; O2SAT 94
[2023-03-03] MEDS: traMADol HCL (*CRX) 50 MG TABLET PO (05:31)
[2023-03-03 07:06] LABS: Basophils Absolute Auto 0.1 K/mm3 (0.0-0.1); Basophils Percent Auto 0.4 % (0.2-1.2); Eosinophils Percent Auto 0.3 % (0-4.4); Hematocrit 29.1 % (37.0-47.0); Hemoglobin 9.7 g/dL (12.0-15.0); Immature Granulocyte Absolute 0.06 K/mm3 (0.00-0.031); Immature Granulocyte Percent A 0.4 % (0-0.5); Lymphocytes Absolute Auto 2.45 K/mm3 (0.9-3.2); Lymphocytes Percent Auto 16.5 % (18.3-44.2); Mean Corpuscular HGB Conc 33.3 g/dl (32-36); Mean Corpuscular Hemoglobin 32.7 pg (26-34); Mean Platelet Volume 9.3 fl (7.4-10.4); Monocytes Absolute Auto 1.8 K/mm3 (0.1-0.6); Monocytes Percent Auto 12.4 % (2.6-8.5); Neutrophils Absolute Auto 10.4 K/mm3 (1.3-6.7); Platelet Count Result 289 k/mm3 (150-375); Red Blood Count 2.97 M/mm3 (4.2-5.4); Red Cell Distribution Width 13.8 % (11.5-14.5); White Blood Count 14.8 K/mm3 (4.5-10.0)
[2023-03-03 07:10] LABS: Anion Gap 0 mmol/L (8-16); Blood Urea Nitrogen 10 mg/dL (7-17); Calcium 8.3 mg/dL (8.4-10.2); Carbon Dioxide 30 mmol/L (22-30); Chloride 98 mmol/L (98-107); Estimated CRCL calculation 69 ml/min; Estimated Glomerular Filt Rate > 60; Glucose 106 mg/dL (65-110); Potassium 4.6 mmol/L (3.4-5.0); Sodium 128 mmol/L (137-145)
--- NOTE | 2023-03-03 07:17 | PM.IMPN ---
Progress Note: A&P Assessment and Plan (1) Status post total hip replacement, right: Code(s): Z96.641 - Presence of right artificial hip joint Status: Acute Assessment and Plan: Postop care per orthopedic physician. She does not believe that she could rehab at home that she would be best served in a rehab facility. Care coordination consulted. Continue PT/OT with weight bearing instructions per Ortho. DVT pharmacologic prophylaxis per orthopedic physician. Continue SCDs. Analgesics per orthopedic physician, she is on Tylenol, Mobic, oxycodone, and tramadol. Incision care per orthopedic physician. (2) Hypercholesterolemia: Code(s): E78.00 - Pure hypercholesterolemia, unspecified Status: Chronic Assessment and Plan: Continue with Lipitor (3) Hypertension: Qualifiers: Hypertension type: essential hypertension Qualified Code(s): I10 - Essential (primary) hypertension Code(s): I10 - Essential (primary) hypertension Status: Chronic Assessment and Plan: BP soft 91/58 to104/46. Likely secondary to narcotics and recent surgery with EBL 600. continue losartan with strict hold parameters. Monitor vitals and adjust antihypertensives as needed. (4) GERD (gastroesophageal reflux disease): Code(s): K21.9 - Gastro-esophageal reflux disease without esophagitis Status: Chronic Assessment and Plan: Continue with Pepcid. RUQ/LUQ pain noted, but patient attributes to coughing. (5) Asthma: Qualifiers: Asthma complication type: uncomplicated Asthma persistence: persistent Asthma severity: moderate Qualified Code(s): J45.40 - Moderate persistent asthma, uncomplicated Code(s): J45.909 - Unspecified asthma, uncomplicated Status: Chronic Assessment and Plan: Chronic, not in acute exacerbation, but c/o cough. continue Xopenex p.r.n. and substitute Advair twice daily for Breo. Add Tessalon Perles. (6) Vertigo: Code(s): R42 - Dizziness and giddiness Status: Chronic Assessment and Plan: The patient reports only taking meclizine once a day. She felt dizzy this morning and endorsed an exacerbation of vertigo around [place]. Continue meclizine TID PRN. Fall precautions. (7) Type 2 diabetes mellitus without complication, without long-term current use of insulin: Code(s): E11.9 - Type 2 diabetes mellitus without complications Status: Chronic Assessment and Plan: A1c 5.4% and appears well controlled. Continue metformin. Continue Accu-Cheks AC and HS, sliding scale insulin with hypoglycemic protocol. (8) Obstructive sleep apnea: Code(s): G47.33 - Obstructive sleep apnea (adult) (pediatric) Status: Chronic Assessment and Plan: Continue with CPAP/BiPAP as she uses at home. (9) DAQUAN (generalized anxiety disorder): Code(s): F41.1 - Generalized anxiety disorder Status: Chronic Assessment and Plan: with depression. Patient takes Celexa daily, however, with sodium 128 and patient taking narcotics will hold celexa for now. (10) Hyponatremia: Code(s): E87.1 - Hypo-osmolality and hyponatremia Status: Acute Assessment and Plan: Sodium 128 postop. Baseline sodium 132-134. Hold celexa. She is also taking Tramadol that can lower sodium level. Repeat BMP tomorrow. Patient is asymptomatic. Plan Thank you for allowing me to participate in your patient's care. Please do not hesitate to call for any questions or concerns please reach out to us at any time. Time Spent With Patient Time: 30 minutes Subjective Date/time seen: 03/03/23 07:17 She reports upper abdominal pain that she attributes to coughing. She has a dry cough and she thinks this is from being intubated during surgery. She denies nausea. She reports an episode of dizziness this morning while in bed, which improved with meclizine. She had difficulty urinating
[2023-03-03 07:25] LABS: Hemoglobin A1C 5.4 % (<5.7)
[2023-03-03 07:41] LABS: Glucose Point of Care 95 mg/dl (65-105)
[2023-03-03] MEDS: ceFAZolin 2 GM/D5W 50 ML 2 GM/50 ML BAG IVPB (08:14)
[2023-03-03] MEDS: CITALOPRAM HYDROBROMIDE 20 MG TABLET 40 MG PO (08:15)
[2023-03-03] MEDS: oxyBUTYnin CHLORIDE 5 MG TABLET PO (08:15)
[2023-03-03] MEDS: MIRABEGRON 50 MG ER TABLET PO (08:15)
[2023-03-03] MEDS: LOSARTAN POTASSIUM 100 MG TABLET PO (08:15)
[2023-03-03] MEDS: polyethylene glycoL 3350 17 GM POWD.PACK PO (08:15)
[2023-03-03] MEDS: metFORMIN HCL 500 MG TABLET PO ×2 (08:16→16:56)
[2023-03-03] MEDS: MELOXICAM 7.5 MG TABLET PO ×2 (08:16→16:55)
[2023-03-03] MEDS: ATORVASTATIN 10 MG TABLET PO (08:16)
[2023-03-03] MEDS: ASPIRIN 81 MG ENTERIC TABLET PO ×2 (08:16→16:55)
[2023-03-03] MEDS: FAMOTIDINE 20 MG TABLET PO ×2 (08:16→20:49)
[2023-03-03] MEDS: SENNA/DOCUSATE SODIUM TABLET 2 TAB PO ×2 (08:16→20:49)
[2023-03-03] MEDS: cilostazoL 100 MG TABLET PO ×2 (08:16→16:56)
[2023-03-03 09:29] VITALS: BP 107/61; PULSE 87; RESP 20; TEMP 36.5; O2SAT 95
[2023-03-03] MEDS: MECLIZINE HCL 25 MG TABLET PO (10:21)
[2023-03-03 11:55] LABS: Glucose Point of Care 104 mg/dl (65-105)
[2023-03-03] MEDS: BENZONATATE 100 MG CAPSULE PO (12:14)
[2023-03-03 13:29] VITALS: BP 104/46; PULSE 81; RESP 20; TEMP 36.3; O2SAT 96
--- NOTE | 2023-03-03 16:39 | PM.PNORT ---
Progress Note: A&P Assessment and Plan (1) History of total right hip arthroplasty: Code(s): Z96.641 - Presence of right artificial hip joint Status: Acute Assessment and Plan: Postop day 1 status post total hip arthroplasty. Moderate pain. Good early progress with therapy. Some difficulty with transfers. Appreciate medical care from the hospitalist team. Wound healing nicely. Dressing clean dry and intact. Moderate swelling. Wiggles toes. Calf nontender. No distal edema. Radiographs show satisfactory total hip arthroplasty. Planning for home discharge with home health. She did not qualify for rehab. Primary concern now is transferring. Will keep her until tomorrow to assure that she is safe. Possible discharge after therapy. I reviewed expectations questions and postoperative protocols for home with the patient and her daughter. Subjective Subjective Date/Time Seen: 03/03/23 16:39 Objective Data Vital Signs Vital Signs: Vital Signs - 24 hr 03/02/23 20:30 03/02/23 23:24 03/03/23 00:08 Temperature 36.6 C 36.2 C L Pulse Rate 90 90 Respiratory Rate 18 16 Blood Pressure 91/64 L 117/59 L Pulse Oximetry 94 93 Oxygen Delivery Autopap 03/02/23 20:00 03/03/23 05:29 03/03/23 08:00 Temperature 35.9 C L Pulse Rate 90 84 Respiratory Rate 16 16 Blood Pressure 91/58 L Pulse Oximetry 93 94 Oxygen Delivery Autopap Room Air 03/03/23 09:29 03/03/23 13:29 Temperature 36.5 C 36.3 C L Pulse Rate 87 81 Respiratory Rate 20 20 Blood Pressure 107/61 104/46 L Pulse Oximetry 95 96 Oxygen Delivery Intake/Output Intake/Output: Intake & Output 02/28/23 03/01/23 03/02/23 03/03/23 23:59 23:59 23:59 23:59 Intake Total 970 1324 Balance 970 1324 Meds/Results Medications: Active Medications Generic Name Dose Route Start Last Admin Trade Name Freq PRN Reason Stop Dose Admin Acetaminophen 1,000 mg 03/02/23 12:00 03/03/23 12:13 Acetaminophen 500 Mg Tablet PO 1,000 mg Q6HR MATT Administration Aspirin 81 mg 03/02/23 11:44 03/03/23 08:16 Aspirin 81 Mg Enteric Tablet PO 81 mg BID MATT Administration Atorvastatin Calcium 10 mg 03/02/23 11:44 03/03/23 08:16 Atorvastatin 10 Mg Tablet PO 10 mg DAILY MATT Administration Benzonatate 100 mg 03/03/23 11:54 03/03/23 12:14 Benzonatate 100 Mg Capsule PO 100 mg TID PRN Administration cough Cilostazol 100 mg 03/02/23 11:44 03/03/23 08:16 Cilostazol 100 Mg Tablet PO 100 mg BID MATT Administration Citalopram Hydrobromide 40 mg 03/03/23 09:00 03/03/23 08:15 Citalopram Hydrobromide 20 Mg Tablet PO 40 mg DAILY MATT Administration Cyclobenzaprine HCl 10 mg 03/02/23 11:44 Cyclobenzaprine Hcl 10 Mg Tablet PO Q8H PRN Spasms Dextrose 12.5 gm 03/02/23 19:05 Dextrose 50% 25 Gm/50 Ml Syringe IV PUSH PRN PRN Hypoglycemia Protocol Diphenhydramine HCl 25 mg 03/02/23 11:44 Diphenhydramine Hcl Inj 50 Mg/Ml Vial IV PUSH Q6H PRN Itching Famotidine 20 mg 03/02/23 11:44 03/03/23 08:16 Famotidine 20 Mg Tablet PO 20 mg Q12HR MATT Administration Glucagon 1 mg 03/02/23 19:05 Glucagon For Inj 1 Mg Vial IM PRN PRN Hypoglycemia Protocol Glucose 15 gm 03/02/23 19:05 Glucose Oral Gel 15 Gm Of Glucse In 37.5 Gm Tube PO PRN PRN Hypoglycemia Protocol Dextrose 1,000 mls @ 100 mls/hr 03/02/23 19:05 Dextrose 5% 1,000 Ml IVPB PRN PRN Hypoglycemia Protocol Insulin Aspart 2 - 5 units 03/03/23 08:00 03/03/23 12:13 Insulin Aspart (*Bkc) 100 Units/Ml SUB-Q Not Given TIDWM MATT Protocol Levalbuterol HCl 2 puff 03/02/23 19:03 Levalbuterol Hfa (*Sp) 15 Gm Inhaler INHALATION Q6HRT PRN Shortness Of Breath Losartan Potassium 100 mg 03/02/23 11:44 03/03/23 08:15 Losartan Potassium 100 Mg Tablet PO 100 mg DAILY MATT Administration Mec
--- NOTE | 2023-03-03 16:43 | PM.DS ---
DS: Admitting Diagnosis Discharge Date 03/04/23 Admitting Diagnosis Right hip arthritis. Admitted for total hip arthroplasty. DS: Discharge Diagnosis Discharge Diagnosis (1) Status post total hip replacement, right: Code(s): Z96.641 - Presence of right artificial hip joint Status: Acute DS: Summary Hospital Course Reason for hospitalization: Total hip arthroplasty. Hospital Course: Tolerated surgery well. Progressed appropriately with therapy. Status at Discharge Functional status at discharge: uses cane/walker Overall status at discharge: patient is progressing back to baseline Time Spent with Patient Time attestation: Total time spent providing and/or coordinating discharge services: Exam Const: General: no acute distress Resp: Effort & Inspection: normal respiratory effort Skin: Other: Wound healing well. Mepilex dressing intact. No hematoma or drainage. Neuro: Motor exam (neuro): 5/5 motor strength present throughout Sensory Exam: normal sensation Psych: Mental Status: mental status grossly normal Speech and movement: Normal speech and movement present DS: Data Data Completed and Pending Labs on day of discharge: Labs from last 24 hours 03/03/23 03/03/23 03/03/23 11:45 07:23 06:52 WBC RBC Hgb Hct MCV MCH MCHC RDW Plt Count MPV Immature Gran % (Auto) Neut % (Auto) Lymph % (Auto) [place] % (Auto) Eos % (Auto) Baso % (Auto) Lymph # (Auto) [place] # (Auto) Eos # (Auto) Baso # (Auto) Abs Immat Gran (auto) Absolute Neuts (auto) Absolute Nucleated RBC Nucleated RBC % Sodium 128 L Potassium 4.6 Chloride 98 Carbon Dioxide 30 Anion Gap 0 L BUN 10 Creatinine 0.50 L Estim Creat Clear Calc 69 Estimated GFR > 60 Glucose 106 POC Capillary Glucose 104 95 Hemoglobin A1c Calcium 8.3 L 03/03/23 03/03/23 03/02/23 06:52 06:52 20:29 WBC 14.8 H RBC 2.97 L Hgb 9.7 L D Hct 29.1 L MCV 98.0 MCH 32.7 MCHC 33.3 RDW 13.8 Plt Count 289 MPV 9.3 Immature Gran % (Auto) 0.4 Neut % (Auto) 70.0 Lymph % (Auto) 16.5 L [place] % (Auto) 12.4 H Eos % (Auto) 0.3 Baso % (Auto) 0.4 Lymph # (Auto) 2.45 [place] # (Auto) 1.8 H Eos # (Auto) 0.0 Baso # (Auto) 0.1 Abs Immat Gran (auto) 0.06 H Absolute Neuts (auto) 10.4 H Absolute Nucleated RBC 0.0 Nucleated RBC % 0.0 Sodium Potassium Chloride Carbon Dioxide Anion Gap BUN Creatinine Estim Creat Clear Calc Estimated GFR Glucose POC Capillary Glucose 209 H Hemoglobin A1c 5.4 Calcium Discharge Plan Discharge Patient Disposition: Home Health Service Discharge Instructions: See green instruction sheets Per Care Coordination: [facility] has been arranged to follow at discharge. [facility] will follow for RN and PT/OT eval and treat. [facility] can be contacted at [phone]. Nursing please fax discharge paperwork to [phone]. Patient Instructions: Antibiotic Form, Pain Management in Older Adults (DC) Stand Alone Forms: General Discharge Information, General Discharge Instructions Follow-up/Referrals: Gisel Morales PA [Physician Rod Greaser] - Discharge Medications: New oxycodone-acetaminophen 5-325 mg tablet 1 - 2 tablet PO Q4-6H MDD 6 PRN (Reason: pain) Qty: 30 0RF Continued Myrbetriq 50 mg tablet extended release 24 hr 50 mg PO DAILY aspirin [Adult Low Dose Aspirin] 81 mg tablet,delayed release (DR/EC) 81 mg PO DAILY Label Comments: TAKESAT HS biotin 10,000 mcg capsule 10,000 mcg PO DAILY collagen (bovine) 100 % powder in packet 1 ea topical DAILY montelukast 10 mg tablet See Rx Instructions .ROUTE .COMPLEX Qty: 90 3RF Dose Instruction: TAKE 1 TABLET BY MOUTH EVERY EVENING Rx Instructions: TAKE 1 TABLET BY
[2023-03-03] MEDS: MONTELUKAST SODIUM 10 MG TABLET PO (16:57)
[2023-03-03 18:21] LABS: Glucose Point of Care 122 mg/dl (65-105)
[2023-03-03 18:39] LABS: Anion Gap 6 mmol/L (8-16); Blood Urea Nitrogen 10 mg/dL (7-17); Calcium 8.7 mg/dL (8.4-10.2); Carbon Dioxide 28 mmol/L (22-30); Chloride 94 mmol/L (98-107); Estimated CRCL calculation 69 ml/min; Estimated Glomerular Filt Rate > 60; Glucose 107 mg/dL (65-110); Sodium 128 mmol/L (137-145)
[2023-03-03 20:00] VITALS: BP 112/50; PULSE 83; RESP 18; TEMP 35.6; O2SAT 94
[2023-03-03 20:46] LABS: Glucose Point of Care 129 mg/dl (65-105)
[2023-03-03] MEDS: TEMAZEPAM (*CRX) 15 MG CAPSULE 30 MG PO (22:19)
[2023-03-04 06:00] VITALS: BP 121/65; PULSE 100; RESP 18; TEMP 35.8; O2SAT 95
[2023-03-04] MEDS: traMADol HCL (*CRX) 50 MG TABLET PO ×2 (08:03→12:17)
[2023-03-04 08:04] LABS: Glucose Point of Care 92 mg/dl (65-105)
[2023-03-04] MEDS: ATORVASTATIN 10 MG TABLET PO (08:04)
[2023-03-04] MEDS: SENNA/DOCUSATE SODIUM TABLET 2 TAB PO (08:04)
[2023-03-04] MEDS: MECLIZINE HCL 25 MG TABLET PO (08:04)
[2023-03-04] MEDS: MIRABEGRON 50 MG ER TABLET PO (08:04)
[2023-03-04] MEDS: polyethylene glycoL 3350 17 GM POWD.PACK PO (08:04)
[2023-03-04] MEDS: CYCLOBENZAPRINE HCL 10 MG TABLET PO (08:04)
[2023-03-04] MEDS: FAMOTIDINE 20 MG TABLET PO (08:04)
[2023-03-04] MEDS: LOSARTAN POTASSIUM 100 MG TABLET PO (08:04)
[2023-03-04] MEDS: BENZONATATE 100 MG CAPSULE PO (08:04)
[2023-03-04] MEDS: cilostazoL 100 MG TABLET PO (08:04)
[2023-03-04] MEDS: MELOXICAM 7.5 MG TABLET PO (08:04)
[2023-03-04] MEDS: ASPIRIN 81 MG ENTERIC TABLET PO (08:05)
[2023-03-04] MEDS: oxyBUTYnin CHLORIDE 5 MG TABLET PO (08:05)
[2023-03-04] MEDS: metFORMIN HCL 500 MG TABLET PO (08:05)
[2023-03-04] MEDS: FLUTICASONE/SALMETEROL 230-21 MCG INHALER 1 PUFF 2 PUFF INHALATION (09:05)
[2023-03-04 09:22] VITALS: PULSE 85; RESP 20
[2023-03-04] MEDS: ACETAMINOPHEN 500 MG TABLET 1000 MG PO (12:17)
== END 2023-03-04 12:45 | disposition home health service (06) ==
LOC: ANHSURGERY 07:48 → ANH3MEDSUR 11:49
PROVIDERS: Nurse Practitioner; Nurse Practitioner Family; Physician Assistant Surgical; PCP Family Medicine; Visit Provider Orthopaedic Surgery
PROC: (CPT 27130; principal; 2023-03-02 08:30)
DX: M16.11 Unilateral primary osteoarthritis, right hip (principal); I35.8 Other nonrheumatic aortic valve disorders; E78.00 Pure hypercholesterolemia, unspecified; I10 Essential (primary) hypertension; K21.9 Gastro-esophageal reflux disease without esophagitis; J45.40 Moderate persistent asthma, uncomplicated; J44.9 Chronic obstructive pulmonary disease, unspecified; R42 Dizziness and giddiness; E11.9 Type 2 diabetes mellitus without complications; G47.33 Obstructive sleep apnea (adult) (pediatric); F41.1 Generalized anxiety disorder; F32.9 Major depressive disorder, single episode, unspecified; Z87.891 Personal history of nicotine dependence; Z79.82 Long term (current) use of aspirin; Z79.51 Long term (current) use of inhaled steroids; Z79.84 Long term (current) use of oral hypoglycemic drugs; E66.9 Obesity, unspecified; Z68.33 Body mass index [BMI] 33.0-33.9, adult
CPT/HCPCS: 27130; 36415; 73502; 80048; 82948; 83036; 85025; 86850; 86900; 86901; 94640; 97110; 97116; 97161; 97165; 97530; 97535; A9270; C1776; J0171; J0330; J0690; J1100; J1170; J1885; J2270; J2370; J2405; J2704; J2710; J2795; J3010; J7030; J7120

== ENCOUNTER 2023-04-20 14:04 | Outpatient (CLI) | payer MEDICARE, OTHER, SELFPAY ==
--- NOTE | ~2023-04-20 | XR_ITS ---
XR elbow RT min 3V DATE: 04/20/2023 14:28 INDICATION: Right elbow pain for 2 days TECHNIQUE: 4 views COMPARISON: None FINDINGS: There is prominent osteoarthritic change at the right elbow including joint space narrowing and particularly prominent spurring. No fracture or dislocation or joint effusion, periosteal reaction or bone destruction is detected. IMPRESSION: Prominent right elbow osteoarthritis Reviewed, dictated and finalized at location L.
== END 2023-04-20 14:05 | disposition home or self-care (01) ==
LOC: ANHIMG 14:06
PROVIDERS: PCP Family Medicine; Visit Provider Family Medicine
DX: M19.021 Primary osteoarthritis, right elbow (principal)
CPT/HCPCS: 73080

== ENCOUNTER 2023-05-15 09:00 | Outpatient (CLI) | payer MEDICARE, OTHER, SELFPAY ==
[2023-05-15 11:07] LABS: Basophils Absolute Auto 0.2 K/mm3 (0.0-0.1); Basophils Percent Auto 1.6 % (0.2-1.2); Eosinophils Absolute Auto 0.5 K/mm3 (0-0.3); Eosinophils Percent Auto 5.9 % (0-4.4); Hematocrit 34.6 % (37.0-47.0); Hemoglobin 11.6 g/dL (12.0-15.0); Immature Granulocyte Absolute 0.02 K/mm3 (0.00-0.031); Immature Granulocyte Percent A 0.2 % (0-0.5); Lymphocytes Absolute Auto 2.45 K/mm3 (0.9-3.2); Lymphocytes Percent Auto 26.8 % (18.3-44.2); Mean Corpuscular HGB Conc 33.5 g/dl (32-36); Mean Corpuscular Hemoglobin 32.4 pg (26-34); Mean Corpuscular Volume 96.6 fl (80-100); Mean Platelet Volume 10.5 fl (7.4-10.4); Neutrophils Percent Auto 54.5 % (45.5-73.1); Platelet Count Result 332 k/mm3 (150-375); Red Blood Count 3.58 M/mm3 (4.2-5.4); Red Cell Distribution Width 13.8 % (11.5-14.5); White Blood Count 9.1 K/mm3 (4.5-10.0)
[2023-05-15 11:18] LABS: Alanine Aminotransferase 36 U/L (6-35); Alkaline Phosphatase 95 U/L (38-126); Anion Gap 4 mmol/L (8-16); Aspartate Amino Transferase 42 U/L (14-36); Bilirubin,Total 0.6 mg/dL (0.2-1.3); Blood Urea Nitrogen 17 mg/dL (7-17); Calcium 8.8 mg/dL (8.4-10.2); Carbon Dioxide 30 mmol/L (22-30); Chloride 92 mmol/L (98-107); Estimated Glomerular Filt Rate > 60; Glucose 82 mg/dL (65-110); Potassium 4.4 mmol/L (3.4-5.0); Sodium 126 mmol/L (137-145)
[2023-05-15 11:19] LABS: Hemoglobin A1C 5.2 % (<5.7)
[2023-05-15 11:41] LABS: Iron 93 ug/dL (37-170)
[2023-05-15 11:51] LABS: Percent Iron Saturation 22 % (20-50)
== END 2023-05-15 09:01 | disposition home or self-care (01) ==
PROVIDERS: PCP Family Medicine; Visit Provider Family Medicine
DX: D64.9 Anemia, unspecified (principal); E11.9 Type 2 diabetes mellitus without complications; E03.9 Hypothyroidism, unspecified
CPT/HCPCS: 36415; 80053; 82728; 83036; 83540; 83550; 84443; 85025

== ENCOUNTER 2023-11-30 08:44 | Outpatient (CLI) | payer MEDICARE, OTHER, SELFPAY ==
--- NOTE | 2023-11-30 09:06 | ECG_ITS ---
Measurements Intervals Robinson Rate: 57 P: -81 NC: 129 QRS: 1 QRSD: 100 T: 3 QT: 448 QTc: 439 Interpretive Statements ECTOPIC ATRIAL BRADYCARDIA BORDERLINE ST-T WAVE ABNORMALITY- INFERIOR LEADS ABNORMAL ECG COMPARED TO ECG 12/06/2022 11:45:30 HEART RATE HAS DECREASED Electronically Signed On 11-30-2023 9:25:50 [employer] by Roc Salomon D.O.
[2023-11-30 09:20] LABS: Basophils Absolute Auto 0.1 K/mm3 (0.0-0.1); Basophils Percent Auto 1.5 % (0.2-1.2); Eosinophils Absolute Auto 0.5 K/mm3 (0-0.3); Eosinophils Percent Auto 6.5 % (0-4.4); Hematocrit 41.3 % (37.0-47.0); Hemoglobin 13.1 g/dL (12.0-15.0); Immature Granulocyte Absolute 0.02 K/mm3 (0.00-0.031); Immature Granulocyte Percent A 0.3 % (0-0.5); Lymphocytes Absolute Auto 2.73 K/mm3 (0.9-3.2); Lymphocytes Percent Auto 36.1 % (18.3-44.2); Mean Corpuscular HGB Conc 31.7 g/dl (32-36); Monocytes Absolute Auto 0.9 K/mm3 (0.1-0.6); Neutrophils Absolute Auto 3.3 K/mm3 (1.3-6.7); Neutrophils Percent Auto 43.6 % (45.5-73.1); Platelet Count Result 342 k/mm3 (150-375); Red Blood Count 4.09 M/mm3 (4.2-5.4); Red Cell Distribution Width 14.1 % (11.5-14.5); White Blood Count 7.6 K/mm3 (4.5-10.0)
[2023-11-30 09:35] LABS: Hemoglobin A1C 5.5 % (<5.7)
[2023-11-30 09:36] LABS: Alanine Aminotransferase 45 U/L (6-35); Albumin Level 4.4 g/dL (3.5-5.1); Alkaline Phosphatase 70 U/L (38-126); Anion Gap 6 mmol/L (8-16); Aspartate Amino Transferase 45 U/L (14-36); Bilirubin,Total 0.8 mg/dL (0.2-1.3); Blood Urea Nitrogen 15 mg/dL (7-17); Calcium 9.7 mg/dL (8.4-10.2); Carbon Dioxide 30 mmol/L (22-30); Chloride 99 mmol/L (98-107); Cholesterol 149 mg/dL (0-200); Estimated Glomerular Filt Rate > 60; Glucose 84 mg/dL (65-110); HDL Direct 92 mg/dL; Potassium 4.1 mmol/L (3.4-5.0); Sodium 135 mmol/L (137-145); Triglycerides 76 mg/dL (<150)
[2023-11-30 09:43] LABS: LDL Cholesterol Direct 45 mg/dL
== END 2023-11-30 08:45 | disposition home or self-care (01) ==
PROVIDERS: PCP Family Medicine; Visit Provider Family Medicine
DX: R94.31 Abnormal electrocardiogram [ECG] [EKG] (principal); R00.1 Bradycardia, unspecified; E78.2 Mixed hyperlipidemia; E11.9 Type 2 diabetes mellitus without complications; R53.83 Other fatigue; I10 Essential (primary) hypertension
CPT/HCPCS: 36415; 80053; 80061; 83036; 85025; 93005

== ENCOUNTER 2024-01-12 09:46 | Outpatient (CLI) | payer MEDICARE, OTHER, SELFPAY ==
--- NOTE | ~2024-01-12 | XR_ITS ---
EXAMINATION:XR cervical spine 4-5V DATE: 01/12/2024 10:13 INDICATION: Neck pain TECHNIQUE: AP, lateral in neutral, flexion, extension, and odontoid views of the cervical spine are p rovided. COMPARISON: None FINDINGS: There are 2 mm of anterolisthesis of C2 on C3. No hypermobility is present with flexion or extension. The odontoid process is intact. No fracture is identified. There is severe loss of interve rtebral disc space height at C3-4 and C4-5 and moderate loss of disc space height at C5-6 and C6-7. T here is multilevel severe facet and uncovertebral joint osteoarthritis. Prevertebral soft tissues are normal. IMPRESSION: 1. Severe cervical spondylosis without acute findings. Reviewed, dictated and finalized at location F. RNAL GRINDER
== END 2024-01-12 09:47 | disposition home or self-care (01) ==
PROVIDERS: PCP Family Medicine; Visit Provider Physician Assistant
DX: M54.2 Cervicalgia (principal); M43.02 Spondylolysis, cervical region
CPT/HCPCS: 72050

== ENCOUNTER 2024-02-28 17:02 | Emergency (ER) | payer MEDICARE, OTHER, SELFPAY ==
--- NOTE | ~2024-02-28 | CT_ITS ---
EXAMINATION: CT abdomen pelvis w con DATE: 02/28/2024 17:53 INDICATION: Low abdominal pain. Back pain. TECHNIQUE: Computed tomography (CT) of the abdomen and pelvis was performed with 100 mL Omnipaque 350 intravenous contrast. Automated exposure control and iterative reconstruction technique were employe d. The dose-length product was 1592.25 mGy-cm. COMPARISON: None. FINDINGS: The visualized portions of the lung bases demonstrate mild atelectasis. Calcified pulmonary nodules and calcified hilar lymph nodes are consistent with old granulomatous disease. No pleural ef fusion. The heart size is normal. There are coronary artery calcifications. No pericardial effusion. The liver is normal. There is splenosis in left upper quadrant. There are gallstones in the gallbladd er, which is distended. The pancreas, adrenal glands, and right kidney are normal. There is a [address] in left kidney. There are no dilated loops of bowel. The appendix is normal. There are no patholog ically enlarged lymph nodes. Aortic atherosclerosis is noted. There is no free intraperitoneal fluid. There is a total right hip arthroplasty. There is moderate lumbar spondylosis. There is mild chronic anterior wedging of T11 vertebral body. IMPRESSION: 1. Cholelithiasis. Gallbladder distention may be secondary to fasting. Correlate with physical exam t o exclude acute cholecystitis. Reviewed, dictated and finalized at location E. IMPRESSION: 1. Cholelithiasis. Gallbladder distention may be secondary to fasting. Correlat e with physical exam to exclude acute cholecystitis.
[2024-02-28 17:09] VITALS: BP 139/85; PULSE 61; RESP 16; TEMP 36.5; O2SAT 96
--- NOTE | 2024-02-28 17:14 | ED.ABDPAIN ---
HPI - Abdominal Pain General Chief Complaint: Abdominal Pain <Eddie Escobar APRN - Last Filed: 02/28/24 17:17> Stated Complaint: abd/back pain <Eddie Escobar APRN - Last Filed: 02/28/24 17:17> Time Seen by Provider: 02/28/24 17:14 <Eddie Escobar APRN - Last Filed: 02/28/24 17:17> Focused HPI: Scale is an 83-year-old female patient presenting to the emergency room today with complaints of lower abdominal pain radiating to her back. History of diverticulitis. Symptoms started on Monday. She denies any fever, nausea, or vomiting. Has had diarrhea and decreased appetite. States she has diarrhea every time she eats. Eating does not worsen the pain. She denies any urinary symptoms. States the pains a throbbing pain constant 9 as 10 currently. General: Well-developed, obese, in no apparent distress. Head: Normocephalic, atraumatic. Cardio: Regular rate and rhythm, s1 and s2 normal, no murmur appreciated. Resp: Clear to auscultation bilaterally, no rhonchi, rales, wheezing or rubs. Abdomen: Soft, pliable, bowel sounds present in all quadrants, lower abdomen tender to palpation, no organomegly, no CVAT tenderness. Patient screened in triage and initial orders placed. Additional care and disposition to be based upon diagnostic testing and treatment. <Eddie Escobar APRN - Last Filed: 02/28/24 17:17> Source: patient <Eddie Escobar APRN - Last Filed: 02/28/24 17:17> Mode of arrival: ambulatory <Eddie Escobar APRN - Last Filed: 02/28/24 17:17> Limitations: no limitations <Eddie Escobar APRN - Last Filed: 02/28/24 17:17> History of Present Illness HPI narrative: She reports 1 episode of diarrhea today. Pain is in the right lower quadrant and does not radiate the back. She does report chronic back pain that is slightly worsened today. She had some popcorn over the weekend and is concerned she has diverticulitis. No upper abdominal discomfort. No known alleviating factors. <Patrick Kirk MD - Last Filed: 02/28/24 19:13> Related Data Home Medications: Home Medications Medication Instructions Recorded Confirmed aspirin 81 mg tablet,delayed 81 mg PO DAILY 12/26/19 01/09/24 release (Adult Low Dose Aspirin) mirabegron 50 mg tablet,extended 50 mg PO DAILY 12/29/19 01/09/24 release 24 hr (Myrbetriq) oxybutynin chloride 5 mg tablet 5 mg PO DAILY 11/24/21 01/09/24 sodium chloride 0.65 % nasal spray 1 spray intranasal BID PRN Allergy 02/06/23 01/09/24 aerosol (Saline Nose) Symptoms fexofenadine 180 mg tablet 180 mg PO DAILY 04/20/23 01/09/24 (Diana Allergy) montelukast 10 mg tablet 10 mg PO QHS 10/23/23 01/09/24 <Eddie Escobar APRN - Last Filed: 02/28/24 17:17> Allergies/Adverse Reactions: Allergies Allergy/AdvReac Type Severity Reaction Status Date / Time codeine Allergy Mild MAKES ME Verified 01/09/24 12:17 REALLY JUMPY <Eddie Escobar, STAIR BUILDER - Last Filed: 02/28/24 17:17> Review of Systems Review of Systems: All systems reviewed & are unremarkable except as noted in HPI and below <Patrick Kirk MD - Last Filed: 02/28/24 19:13> Constitutional: Constitutional: Reports no additional constitutional complaints <Patrick Kirk MD - Last Filed: 02/28/24 19:13> ENT: Reports system reviewed and no additional complaints, except as documented <Patrick Kirk MD - Last Filed: 02/28/24 19:13> Cardiovascular: Cardiovascular: Reports no additional cardiovascular complaints <Patrick Kirk MD - Last Filed: 02/28/24 19:13> Respiratory: Respiratory: Reports no additional respiratory complaints <Patrick Kirk MD - Last Filed: 02/28/24 19:13> Gastrointestinal: Gastrointestinal: Reports abdominal pain, Reports diarrhea, Denies nausea and Denies vomiting <Patrick Kirk MD - Last Filed: 02/28/24 19:13> Genitourinary: Genitourinary: Reports no additional female genitou
[2024-02-28 17:25] LABS: Basophils Absolute Auto 0.1 K/mm3 (0.0-0.1); Basophils Percent Auto 0.7 % (0.2-1.2); Eosinophils Absolute Auto 0.3 K/mm3 (0-0.3); Eosinophils Percent Auto 2.8 % (0-4.4); Hematocrit 39.5 % (37.0-47.0); Hemoglobin 12.7 g/dL (12.0-15.0); Immature Granulocyte Absolute 0.02 K/mm3 (0.00-0.031); Immature Granulocyte Percent A 0.2 % (0-0.5); Lymphocytes Absolute Auto 2.95 K/mm3 (0.9-3.2); Lymphocytes Percent Auto 28.1 % (18.3-44.2); Mean Corpuscular HGB Conc 32.2 g/dl (32-36); Mean Corpuscular Hemoglobin 32.3 pg (26-34); Mean Corpuscular Volume 100.5 fl (80-100); Mean Platelet Volume 9.4 fl (7.4-10.4); Monocytes Percent Auto 9.5 % (2.6-8.5); Neutrophils Absolute Auto 6.2 K/mm3 (1.3-6.7); Neutrophils Percent Auto 58.7 % (45.5-73.1); Platelet Count Result 361 k/mm3 (150-375); Red Blood Count 3.93 M/mm3 (4.2-5.4); Red Cell Distribution Width 14.3 % (11.5-14.5); White Blood Count 10.5 K/mm3 (4.5-10.0)
[2024-02-28 17:36] LABS: Alanine Aminotransferase 36 U/L (6-35); Albumin Level 4.4 g/dL (3.5-5.1); Alkaline Phosphatase 76 U/L (38-126); Anion Gap 9 mmol/L (4-12); Aspartate Amino Transferase 38 U/L (14-36); Bilirubin,Total 0.8 mg/dL (0.2-1.3); Blood Urea Nitrogen 13 mg/dL (7-17); Carbon Dioxide 25 mmol/L (22-30); Chloride 98 mmol/L (98-107); Estimated CRCL calculation 67 ml/min; Estimated Glomerular Filt Rate > 60; Glucose 101 mg/dL (65-110); Lipase 87 U/L (23-300); Potassium 4.2 mmol/L (3.4-5.0); Sodium 132 mmol/L (137-145)
[2024-02-28 18:33] LABS: Appearance Urine Clear (Clear); Bacteria Urine Rare /hpf; Bilirubin Urine Negative (Negative); Blood Urine Negative (Negative); Color Urine Yellow (Yellow); Glucose Urine UA Negative (Negative); Ketones Urine Negative (Negative); Leukocyte Esterase Ur 1+ LEU/UL (Negative); Nitrate Urine Negative (Negative); Non Pathogenic Casts 0-2; Protein Urine Negative (Negative); RBC Urine 0-2 /hpf (0-2); Squamous Epithelial Cell Urine Occasional /hpf (Few); Urobilinogen Urine 0.2 mg/dL (<2.0)
[2024-02-28 18:35] LABS: Add Urine Microscopic? YES; Specific Grav Ur 1.042 (1.001-1.035)
[2024-02-28 18:58] VITALS: BP 133/71; PULSE 65; RESP 18; O2SAT 97
[2024-02-28 19:30] VITALS: BP 133/71; PULSE 66; RESP 17; O2SAT 96
== END 2024-02-28 19:35 | disposition home or self-care (01) ==
LOC: ANHED 19:27
PROVIDERS: Nurse Practitioner Family; Emergency Provider Emergency Medicine; PCP Family Medicine
DX: K80.20 Calculus of gallbladder without cholecystitis without obstruction (principal); K52.9 Noninfective gastroenteritis and colitis, unspecified; N39.0 Urinary tract infection, site not specified; J44.9 Chronic obstructive pulmonary disease, unspecified; I10 Essential (primary) hypertension; E11.9 Type 2 diabetes mellitus without complications; E78.00 Pure hypercholesterolemia, unspecified; G47.33 Obstructive sleep apnea (adult) (pediatric); K21.9 Gastro-esophageal reflux disease without esophagitis; F41.1 Generalized anxiety disorder; F41.9 Anxiety disorder, unspecified; Z96.653 Presence of artificial knee joint, bilateral; Z96.641 Presence of right artificial hip joint; Z87.891 Personal history of nicotine dependence; Z90.81 Acquired absence of spleen; Z79.82 Long term (current) use of aspirin; Z79.85 Long-term (current) use of injectable non-insulin antidiabetic drugs; Z79.84 Long term (current) use of oral hypoglycemic drugs
CPT/HCPCS: 36415; 74177; 80053; 81001; 83690; 85025; 87086; 87088; 99284; Q9967

== ENCOUNTER 2024-04-02 05:50 | Day surgery (SDC) | payer MEDICARE, OTHER, SELFPAY ==
[2024-03-22 11:30] VITALS: BMI 43.3
--- NOTE | ~2024-04-02 | XR_ITS ---
EXAMINATION: XR fluoroscopy no charge DATE: 04/02/2024 07:56 INDICATION: Cervical radiculopathy. Left C3, C4, C5 nerve block. TECHNIQUE: 50 intraoperative fluoroscopic views of the cervical spine were obtained. I was not presen t. Fluoroscopy exposure time was 37 seconds. COMPARISON: Cervical spine radiographs 01/12/2024 FINDINGS: There is severe cervical spondylosis. Left-sided needles with contrast are noted for medial branch blocks at C3, C4, and C5. IMPRESSION: 1. Left-sided medial branch blocks at C3, C4, and C5. Reviewed, dictated and finalized at location A.
--- NOTE | 2024-04-02 05:11 | WPDHPUPDATE1 ---
History and Physical Update Update Date/Time: 04/02/24 05:11 History and Physical has been reviewed, including an updated exam of the patient. There are NO changes in the patient's condition. Risks, benefits, and alternatives have been discussed and questions answered. Patient agrees to proceed with procedure.
--- NOTE | 2024-04-02 05:13 | W.PM.PROC2 ---
Procedure Note - Detailed Date of Procedure 04/02/24 Pre-op Diagnosis Cervical Spondylosis, Cervicalgia, Chronic pain Post-op Diagnosis Same Procedure Performed Diagnostic Left Cervical Medial Branch Blocks at C3, C4, C5 Blocking the Ipsilateral C3-4, C4-5 facet joints under Fluoroscopic Guidance and with Contrast Control (2 levels blocked). Surgeon Amrando Tillman MD Anesthesia Local Description of Procedure INFORMED CONSENT: Risks, benefits and alternatives to the procedure were discussed in detail with the patient who expressed explicit understanding and consent to proceed. Patient was informed verbally and in written form regarding the risks associated with the procedure including the low risk of serious infection, bleeding/bruising, allergic reaction, nerve or organ injury, paralysis, procedural site pain or discomfort, worsening pain and/or mobility, failure to treat and/or disfigurement. The patient expressed explicit understanding and consent to proceed. All materials required for the procedure were available prior to procedure start. Site and side were marked prior to procedure and confirmed in the presence of the patient. PROCEDURE IN DETAIL: The patient was brought to the procedural suite and placed in the prone position with head stabilized with a ProneView pillow. Patient was made comfortable with use of pillows under the head/chest, hips and ankles. Skin overlying the injection site on the affected side(s) was prepared broadly with ChloraPrep applicator and draped in a sterile manner. Aseptic technique was used throughout. The endplates of the vertebral bodies at the site(s) of interest were aligned in the AP view. Ipsilateral oblique angulation was utilized to optimize visualization of the pars interarticularis at each target site. Local anesthesia was established by infiltration with approximately 5 mL of 1% lidocaine via a 1-1/2 inch 27-gauge needle. A 25-gauge 3.5 inch Quincke spinal needle was advanced until the needle tip contacted the periosteum of the pars interarticularis at the target site, left C3. Lateral view was utilized to confirm the appropriate placement of the needle tip just anterior to the center point of the interarticularis. In the Lateral view, 0.25 mL of Omnipaque 300 contrast medium was injected after negative aspiration for CSF, blood or other bodily fluid, showing appropriate extra-articular spread of contrast without evidence of intravascular, foraminal or intrathecal placement. A 0.25 mL solution of 0.5% PF bupivacaine was injected after negative repeat aspiration. Appropriate spread of the injectate was confirmed with washout of previously injected contrast. No parasthesias were elicited. Needle was removed completely intact without difficulty. The same exact procedure was repeated for all remaining levels on the ipsilateral side, left C4, C5 medial branches, modified as necessary to accommodate for the new target location with identical findings and results and no evidence of complication. Images were saved and documented in the patient chart. Patient's skin was cleansed and sterile bandage applied. The patient tolerated the procedure well. The patient was transported to the recovery area in stable condition where they were observed for an appropriate amount of time prior to discharge, without evidence of complication. Patient was instructed on the appropriate completion of a pain diary over the next 12-24 hours. The patient was instructed to avoid excessive activity for the next 48 hours, including climbing and frequent use of stairs. Showers only for 48 hours. They were instructed not to drive or operate heavy machinery for 24 hours. They are to monitor for severe headaches, fevers, chills, night sweats, erythema/swelling at the site or any other signs of infection, bleeding/bruising, bowel or bladder changes as well as new pain, weakness or numbness in the upper or lower extremity. Should they notice these danielle
[2024-04-02 06:56] VITALS: BP 147/77; PULSE 72; RESP 20; TEMP 36.9; O2SAT 94; BMI 42.7
[2024-04-02 07:34] VITALS: BP 188/89; PULSE 59; RESP 12; O2SAT 94
[2024-04-02] MEDS: LIDOCAINE HCL 1% PF INJ 5 ML VIAL 3 ML INFILTRATE (07:43)
[2024-04-02 07:45] VITALS: BP 164/67; PULSE 61; RESP 20; O2SAT 94
[2024-04-02] MEDS: BUPivacaine HCL 0.5% 10 ML AMP 5 ML INFILTRATE (07:47)
[2024-04-02 07:53] VITALS: BP 146/71; PULSE 56; RESP 18; O2SAT 97
== END 2024-04-02 08:05 | disposition home or self-care (01) ==
PROVIDERS: PCP Family Medicine; Visit Provider Anesthesiology Pain Medicine
PROC: (CPT 64490; principal; 2024-04-02 07:30)
DX: M47.812 Spondylosis without myelopathy or radiculopathy, cervical region (principal); M54.2 Cervicalgia; G89.4 Chronic pain syndrome
CPT/HCPCS: 64490 ×2; 99199

== ENCOUNTER 2024-05-30 10:47 | Outpatient (CLI) | payer MEDICARE, OTHER, SELFPAY ==
--- NOTE | ~2024-05-30 | XR_ITS ---
3 VIEWS LUMBAR SPINE Ordering provider: Armando Tillman MD History: . M47.817 - Spondylosis without myelopathy or radiculopathy... . Comparison: None. FINDINGS: VERTEBRAL BODIES:Levoscoliosis. Degenerative changes of the spine. No visible fracture or subluxatio n. DISK SPACES: Narrowing of the disc L1-L2, L2-L3, L3-L4, L4-L5 and L5-S1. Multilevel facet joint disease. SOFT TISSUES: Normal. IMPRESSION: No acute osseous abnormality lumbar spine. Multiple degenerative disc disease. Reviewed, dictated and finalized at location A.
== END 2024-05-30 10:48 ==
PROVIDERS: PCP Family Medicine; Visit Provider Anesthesiology Pain Medicine
DX: M47.817 Spondylosis without myelopathy or radiculopathy, lumbosacral region (principal); M54.9 Dorsalgia, unspecified; M51.36 Other intervertebral disc degeneration, lumbar region
CPT/HCPCS: 72114

== ENCOUNTER 2024-06-04 09:18 | Day surgery (SDC) | payer MEDICARE, OTHER, SELFPAY ==
[2024-05-30 08:49] VITALS: BMI 42.9
--- NOTE | ~2024-06-04 | XR_ITS ---
EXAMINATION: XR fluoroscopy no charge DATE: 06/04/2024 11:50 CDT INDICATION: LEFT C3,C4,C5 MED BRANCH BLK . TECHNIQUE: 7 fluoroscopic images of the cervical spine were obtained during left C3, C4, C5 medial br anch block, performed by Armando Tillman MD. I was not present during the procedure. Fluoroscopy exp osure time was 91.6 seconds. Air Kerma 11.55 mGy. COMPARISON: None FINDINGS/IMPRESSION: Fluoroscopic documentation of left C3, C4, C5 medial branch block. Please refer to the operative note for complete procedural details . Reviewed, dictated and finalized at location K.
--- NOTE | 2024-06-04 06:02 | WPDHPUPDATE1 ---
History and Physical Update Update Date/Time: 06/04/24 06:02 History and Physical has been reviewed, including an updated exam of the patient. There are NO changes in the patient's condition. Risks, benefits, and alternatives have been discussed and questions answered. Patient agrees to proceed with procedure.
--- NOTE | 2024-06-04 06:04 | W.PM.PROC2 ---
Procedure Note - Detailed Date of Procedure 06/04/24 Pre-op Diagnosis Cervicalgia, Cervical Spondylosis Post-op Diagnosis Same Procedure Performed Diagnostic left Cervical Medial Branch Blocks (#1) at C3, C4, C5 Blocking the Ipsilateral C3-4, C4-5 facet joints under Fluoroscopic Guidance and with Contrast Control (2 levels blocked). Surgeon Armando Tillman MD Anesthesia Local Description of Procedure INFORMED CONSENT: Risks, benefits and alternatives to the procedure were discussed in detail with the patient who expressed explicit understanding and consent to proceed. Patient was informed verbally and in written form regarding the risks associated with the procedure including the low risk of serious infection, bleeding/bruising, allergic reaction, nerve or organ injury, paralysis, procedural site pain or discomfort, worsening pain and/or mobility, failure to treat and/or disfigurement. The patient expressed explicit understanding and consent to proceed. All materials required for the procedure were available prior to procedure start. Site and side were marked prior to procedure and confirmed in the presence of the patient. PROCEDURE IN DETAIL: The patient was brought to the procedural suite and placed in the prone position with head stabilized with a ProneView pillow. Patient was made comfortable with use of pillows under the head/chest, hips and ankles. Skin overlying the injection site on the affected side(s) was prepared broadly with ChloraPrep applicator and draped in a sterile manner. Aseptic technique was used throughout. The endplates of the vertebral bodies at the site(s) of interest were aligned in the AP view. Ipsilateral oblique angulation was utilized to optimize visualization of the pars interarticularis at each target site. Local anesthesia was established by infiltration with approximately 5 mL of 1% lidocaine via a 1-1/2 inch 27-gauge needle. A 25-gauge 3.5 inch Quincke spinal needle was advanced until the needle tip contacted the periosteum of the pars interarticularis at the target site, left C3. Lateral view was utilized to confirm the appropriate placement of the needle tip just anterior to the center point of the interarticularis. In the Lateral view, 0.25 mL of Omnipaque 300 contrast medium was injected after negative aspiration for CSF, blood or other bodily fluid, showing appropriate extra-articular spread of contrast without evidence of intravascular, foraminal or intrathecal placement. A 0.25 mL solution of 0.5% PF bupivacaine was injected after negative repeat aspiration. Appropriate spread of the injectate was confirmed with washout of previously injected contrast. No parasthesias were elicited. Needle was removed completely intact without difficulty. The same exact procedure was repeated for all remaining levels on the ipsilateral side, left C4, C5 medial branches, modified as necessary to accommodate for the new target location with identical findings and results and no evidence of complication. Images were saved and documented in the patient chart. Patient's skin was cleansed and sterile bandage applied. The patient tolerated the procedure well. The patient was transported to the recovery area in stable condition where they were observed for an appropriate amount of time prior to discharge, without evidence of complication. Patient was instructed on the appropriate completion of a pain diary over the next 12-24 hours. The patient was instructed to avoid excessive activity for the next 48 hours, including climbing and frequent use of stairs. Showers only for 48 hours. They were instructed not to drive or operate heavy machinery for 24 hours. They are to monitor for severe headaches, fevers, chills, night sweats, erythema/swelling at the site or any other signs of infection, bleeding/bruising, bowel or bladder changes as well as new pain, weakness or numbness in the upper or lower extremity. Should they notice these changes, they
[2024-06-04 11:07] VITALS: BP 142/88; PULSE 73; RESP 18; TEMP 37; O2SAT 95
[2024-06-04 11:55] VITALS: BP 146/67; PULSE 79; RESP 12; O2SAT 95
[2024-06-04 12:04] VITALS: BP 141/70; PULSE 85; RESP 16; O2SAT 95
[2024-06-04] MEDS: LIDOCAINE HCL 1% PF INJ 5 ML VIAL 3.5 ML XX (12:05)
[2024-06-04] MEDS: BUPivacaine HCL 0.5% 10 ML AMP 1.5 ML INFILTRATE (12:07)
[2024-06-04 12:09] VITALS: BP 142/63; PULSE 74; RESP 16; O2SAT 95
== END 2024-06-04 12:25 | disposition home or self-care (01) ==
PROVIDERS: PCP Family Medicine; Visit Provider Anesthesiology Pain Medicine
PROC: (CPT 64490; principal; 2024-06-04 11:45)
DX: M47.812 Spondylosis without myelopathy or radiculopathy, cervical region (principal); M54.2 Cervicalgia
CPT/HCPCS: 64490; 99199

== ENCOUNTER 2024-06-06 14:37 | Outpatient (CLI) | payer MEDICARE, OTHER, SELFPAY ==
--- NOTE | ~2024-06-06 | MR_ITS ---
EXAMINATION: MR cervical spine wo con DATE: 06/06/2024 15:12 INDICATION: Neck pain. TECHNIQUE: Magnetic resonance imaging (MRI) of the cervical spine was performed without intravenous c ontrast. COMPARISON: Cervical spine radiographs 01/12/2024 FINDINGS: There is 4 degrees dextrocurvature of cervicothoracic spine. There is kyphosis of cervical spine. There is 2 mm anterolisthesis of C2 on C3 and C7 on T1. Vertebral body heights are normal. The re is severely decreased disc height from C3-C4 through C6-C7 with interbody fusion at C3-C4. There i s moderately decreased disc height at C7-T1. The spinal cord signal intensity is normal. The followin g disc levels are specifically discussed: C2-C3: The disc does not extend beyond the endplate margin. There is mild right uncovertebral joint o steoarthritis. There is severe bilateral facet joint osteoarthritis. There is mild right neural jackie inal stenosis. There is no central canal stenosis. C3-C4: There is mild bilateral uncovertebral joint hypertrophy. There is ankylosis of the facet joint s without hypertrophy. There is no neural foraminal stenosis. There is mild central canal stenosis. C4-C5: The disc is bulging. There is severe bilateral uncovertebral joint osteoarthritis. There is se shelby bilateral facet joint osteoarthritis. There is moderate bilateral neural foraminal stenosis. The re is moderate central canal stenosis with ventral and dorsal indentation of the spinal cord. C5-C6: The disc is bulging. There is severe bilateral uncovertebral joint osteoarthritis. There is se shelby right and moderate left facet joint osteoarthritis. There is mild right and moderate left neural foraminal stenosis. There is mild central canal stenosis. C6-C7: The disc is bulging. There is severe bilateral uncovertebral joint osteoarthritis. There is se shelby bilateral facet joint osteoarthritis. There is mild bilateral neural foraminal stenosis. There i s mild central canal stenosis. C7-T1: The disc does not extend beyond the endplate margin. There is mild bilateral uncovertebral byron nt osteoarthritis. There is severe bilateral facet joint osteoarthritis. There is mild bilateral neur al foraminal stenosis. There is mild central canal stenosis. IMPRESSION: 1. Severe cervical spondylosis. Reviewed, dictated and finalized at location E.
== END 2024-06-06 14:38 ==
LOC: MICIMG 14:38
PROVIDERS: PCP Family Medicine; Visit Provider Anesthesiology Pain Medicine
DX: M43.02 Spondylolysis, cervical region (principal)
CPT/HCPCS: 72141

== ENCOUNTER 2024-08-19 19:59 | Emergency (ER) | payer OTHER, MEDICARE, SELFPAY ==
--- NOTE | ~2024-08-19 | CT_ITS ---
Noncontrast CT scan of the thoracolumbar spine CLINICAL HISTORY: Trauma TECHNIQUE: Axial noncontrast imaging of the thoracolumbar spine was performed. Sagittal and coronal r eformatted images were constructed. Dose reduction technique was used on this scan by utilizing autom ated exposure control and iterative reconstruction technique. The dose-length product (DLP) was 2065. 58 mGy-cm. FINDINGS: There is no fracture or subluxation of thoracolumbar spine. There is moderate degenerative disc narrowing throughout the lower thoracic spine, more advanced degenerative disc narrowing at T10- T11. There is also advanced degenerative disc change at L1-L2 and L4-L5. No significant disc herniation or bulge evident in the thoracic spine. No spinal canal stenosis evide nt thoracic spine. There is probable bilateral neural foraminal narrowing at T8-T9 and T7-T8. At L1-L2, there is disc bulge and facet arthropathy, probable mild canal stenosis. There is mild to m oderate left neural foraminal narrowing. L2-L3, there is disc bulge and facet arthropathy, resulting in probable mild canal stenosis. There is moderate to advanced right neural foraminal narrowing. There is minimal left neural foraminal narrow ing. L3-L4, there is disc bulge and facet arthropathy, with probable moderate central canal stenosis. Ther e is moderate to advanced bilateral neural foraminal narrowing, right worse than left. At L4-L5, disc bulge and severe facet arthropathy result in severe spinal canal stenosis/thecal sac c ompression. There is moderate bilateral neural foraminal narrowing. At L5-S1, there is advanced facet arthropathy. No chang canal stenosis. There is moderate to advanced bilateral neural foraminal narrowing. Paravertebral soft tissues are unremarkable.. Impression: No acute posttraumatic abnormality. Degenerative spondylosis, as detailed above, severe at L4-L5 in particular. Reviewed, dictated and finalized at location M. Impression: No acute posttraumatic abnormality. Degenerative spondylosis, as detailed above, severe at L4-L5 in particular.
--- NOTE | ~2024-08-19 | CT_ITS ---
Noncontrast CT scan of the cervical spine Technique: Multiple contiguous axial [address] images of the cervical spine were obtained and rec onstructed in 2D sagittal and coronal planes on the acquisition scanner. Dose reduction technique was used on this scan by utilizing automated exposure control, adjustment of the mA and/or kV according to patient size. The dose-length product (DLP) was 496.47 mGy-cm. Clinical History: Pain COMPARISON: 12/21/2020 Findings: No acute fracture or subluxation. Stable minimal grade 1 anterolisthesis of C2 over C3. Sta ble minimal grade 1 anterolisthesis of C7 over T1. There is severe degenerative disc narrowing throug hout the cervical spine. There is advanced degenerative change at the articulation of the odontoid pr ocess with the anterior arch of C1. There is severe facet arthropathy throughout the cervical spine. There is right neural foraminal narrowing at C2-C3. There is bilateral neural foraminal narrowing at C3-C4 with disc ossify complex and probable mild canal stenosis. There is large disc ossify complex a t C4-C5 resulting in moderate canal stenosis, with bilateral significant neural foraminal narrowing. There is bilateral neural foraminal narrowing at C5-C6 and C6-C7. No prevertebral soft tissue swellin g. Impression: No acute fracture. Stable minimal grade 1 anterolisthesis of C2 over C3, and of C7 over T1. Severe degenerative spondylosis, as detailed above. Reviewed, dictated and finalized at [facility]. Impression: No acute fracture. Stable minimal grade 1 anterolisthesis of C2 over C3, and of C7 over T1. Severe degenerative spondylosis, as detailed above.
[2024-08-19 20:08] VITALS: BP 135/82; PULSE 58; RESP 18; TEMP 36.6; O2SAT 100
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
[2024-08-20 02:00] VITALS: BP 147/82; PULSE 77; RESP 18; TEMP 36.7; O2SAT 99
== END 2024-08-20 02:01 | disposition home or self-care (01) ==
PROVIDERS: Emergency Provider Emergency Medicine; PCP Family Medicine
DX: S16.1XXA Strain of muscle, fascia and tendon at neck level, initial encounter (principal); S39.012A Strain of muscle, fascia and tendon of lower back, initial encounter; S29.012A Strain of muscle and tendon of back wall of thorax, initial encounter; I10 Essential (primary) hypertension; I35.8 Other nonrheumatic aortic valve disorders; E78.00 Pure hypercholesterolemia, unspecified; E11.9 Type 2 diabetes mellitus without complications; J44.9 Chronic obstructive pulmonary disease, unspecified; G47.33 Obstructive sleep apnea (adult) (pediatric); K21.9 Gastro-esophageal reflux disease without esophagitis; M47.816 Spondylosis without myelopathy or radiculopathy, lumbar region; M47.812 Spondylosis without myelopathy or radiculopathy, cervical region; F41.1 Generalized anxiety disorder; F32.A Depression, unspecified; Z96.653 Presence of artificial knee joint, bilateral; Z96.641 Presence of right artificial hip joint; Z87.891 Personal history of nicotine dependence; Z90.81 Acquired absence of spleen; Z79.84 Long term (current) use of oral hypoglycemic drugs; Z79.899 Other long term (current) drug therapy; V49.40XA Driver injured in collision with unspecified motor vehicles in traffic accident, initial encounter
CPT/HCPCS: 72125; 72128; 72131; 99284

== ENCOUNTER 2024-09-11 12:17 | Outpatient (RCR) | payer MEDICARE, OTHER, SELFPAY ==
[2024-09-11 12:47] VITALS: BMI 44.4
== END 2024-11-25 13:19 | disposition home or self-care (01) ==
LOC: ANHWOC 12:17
DX: T14.8XXD Other injury of unspecified body region, subsequent encounter (principal)
CPT/HCPCS: 99213; G0463

== ENCOUNTER 2025-01-14 08:30 | Day surgery (SDC) | payer MEDICARE, OTHER, SELFPAY ==
[2024-12-05 15:00] VITALS: BMI 44.4
[2024-12-24 13:23] VITALS: BMI 44.1
--- NOTE | 2025-01-14 09:20 | PM.HPGS ---
History of Present Illness History of Present Illness Consent: Risks, benefits, and alternatives have been discussed and questions answered. Patient agrees to proceed with procedure. Chief complaint: Cervical spondylosis, chronic cervicalgia Narrative: Sonal Burleson is a 84 year old female with chronic, recalcitrant and disabling left cervical for pain secondary to degenerative spondylosis with failure to respond to aggressive conservative measures including PT, oral and topical analgesics, opioid and nonopioid analgesics, rest, time and activity/behavioral modification over the past 1-2 years who presents for diagnostic/prognostic medial branch blocks of the left C3, C4, C5 medial branches(# 3) addressing the ipsilateral C3-4, C4-5 facet joints under fluoroscopic guidance and with contrast control. Review of Systems Review of Systems: Patient denies any new infectious, allergic, cardiopulmonary, neurologic or constitutional symptoms or changes in activity tolerance or exercise capacity including new or progressive SOB/SWAN, peripheral edema, productive cough, dysuria, nausea/vomiting, diarrhea, weight change, fevers/chills/night sweats, new or progressive neurologic deficit, cognitive or mood changes since last seen, except as documented in the HPI. All systems reviewed & are unremarkable except as noted in HPI and below PMFSH Past Medical History Medical History Aortic valve sclerosis Allergic rhinitis Anxiety Benign hypertension Benign paroxysmal positional vertigo, bilateral Chronic obstructive pulmonary disease Cough due to JAMILA inhibitor Depressive disorder, not elsewhere classified DAQUAN (generalized anxiety disorder) Hearing loss Insomnia Obstructive sleep apnea Migraine SOB (shortness of breath) Tobacco abuse She smoked about 5 cigs/day for about 40 years but was also exposed to second hand smoke from her and parents. No longer smoking, quit 2012. Type 2 diabetes mellitus without complication, without long-term current use of insulin Umbilical hernia without obstruction or gangrene Unsteady gait Ventral hernia without obstruction or gangrene Vertigo GERD (gastroesophageal reflux disease) Hypertension Hypercholesterolemia Asthma Surgical History Surgical History History of total right hip arthroplasty (~03/02/23) History of eye surgery History of hernia repair History of total bilateral knee replacement (TKR) History of appendectomy History of splenectomy Family History Family History Sibling Family history of elevated blood lipids Family history of malignant neoplasm Family history of coronary artery disease Family history of premature coronary heart disease Family history of cardiovascular disease Family history of heart disease in male family member before age 55 Father Family history of heart disease in male family member before age 55 Family history of cardiovascular disease Family history of coronary artery disease, Onset Age: 44 Mother Family history of heart disease in male family member before age 55 Family history of coronary artery disease Acute myocardial infarction Grandparent Diabetes mellitus Other Family history of arthritis Hypertension Social History Social History Social History: 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 She has 1 son. The daughter in all helps with her care. She is and lives home alone. Code status full code Smoking packs per day: 0.5 Smoking cigarettes per day: 10.0 Years smoked: 40 Smoking pack-years: 20.00 Smoking status: Former smoker Tobacco type: cigarettes Second hand tobacco smoke exposure: Yes Smoking end date: 11/13/04 Additional smoking assessment comments: DENIES ANY FORM OF TOBACCO USE Alcohol intake: never Substance use: never Substance use type: does not use Do You Feel Safe in your Home?: Yes Lack of Transportation: No Lack of Food: Never True Current Housing: I Have Housing Concerned About Future Housing: No Difficulty Paying Gas/Electric Bills: No Difficulty Paying for Meds: No Currently Unemployed: No Education: High School Diploma/GED Difficulty w/ Childcare or Family Care: No Living arrangements: alone Occupation/Education: retired Gender identity (if verbalized by the patient): Female Sexual Orientation (if Verbalized by the Patient): Straight or Heterosexual Spiritual care concerns: No Agree to blood products: Yes Meds Home Medications and Allergies Home Medications ?Medication ?Instructions ?Recorded ?Confirmed ?Type mirabegron 50 mg tablet,extended 50 mg PO DAILY 12/29/19 12/24/24 History release 24 hr (Myrbetriq) fexofenadine 180 mg tablet 180 mg PO DAILY 04/20/23 12/24/24 History (Diana Allergy) azelastine 137 mcg (0.1 %) nasal 1 spray intranasal Q12H #30 mL 10/23/23 12/24/24 Rx spray losartan 50 mg tablet 25 mg PO DAILY 03/22/24 12/24/24 History citalopram 40 mg tablet 40 mg PO DAILY 06/04/24 12/24/24 History fluticasone furoate 200 1 inh inhalation DAILY #60 ea 07/11/24 12/24/24 Rx mcg-vilanterol 25 mcg/dose inhalation powder (Breo Ellipta) montelukast 10 mg tablet 10 mg PO QHS #30 tabs 09/06/24 12/24/24 Rx eszopiclone 1 mg tablet (Lunesta) 1 mg PO QHS #30 tabs 11/25/24 12/24/24 Rx meclizine 25 mg tablet 25 mg PO TID PRN Dizziness #90 tabs 11/29/24 12/24/24 Rx mirtazapine 15 mg tablet 15 mg PO QHS #30 tabs 11/29/24 12/24/24 Rx albuterol sulfate 90 mcg/actuation See Rx Instructions .Route 12/19/24 12/24/24 Rx aerosol inhaler .COMPLEX #8.5 grams atorvastatin 10 mg tablet 10 mg PO DAILY #90 tabs 01/01/25 Rx Allergies Allergy/AdvReac Type Severity Reaction Status Date / Time codeine AdvReac Mild MAKES ME Verified 12/24/24 13:18 REALLY JUMPY Exam Narrative: The patient's physical exam is essentially unchanged from prior examination on 12/02/2024. Specifically, patient demonstrates normal lung capacity, tidal volume and respiratory rate without wheezes, crackles, rales or rubs. Heart rate and rhythm are regular without murmurs, gallops or rubs. No JVD. Pulses 2+ globally without increasing peripheral edema. AAOx3 with no evidence of confusion, intoxication or altered mental state, NC/AT without acute distress or altered consciousness. Speech, cognition, mood, insight and judgment at baseline and within normal limits. Assessment and Plan Assessment and plan (1) Cervical spondylosis: Code(s): M47.812 - Spondylosis without myelopathy or radiculopathy, cervical region Status: Acute Assessment and Plan: Proceed as planned with diagnostic/prognostic medial branch blocks of the left C3, C4, C5 medial branches(# 3) addressing the ipsilateral C3-4, C4-5 facet joints under fluoroscopic guidance and with contrast control. (2) Chronic pain: Code(s): G89.29 - Other chronic pain Status: Acute (3) Cervicalgia: Code(s): M54.2 - Cervicalgia Status: Acute
--- NOTE | 2025-01-14 09:23 | WPDHPUPDATE1 ---
History and Physical Update Update Date/Time: 01/14/25 09:23 History and Physical has been reviewed, including an updated exam of the patient. There are NO changes in the patient's condition. Risks, benefits, and alternatives have been discussed and questions answered. Patient agrees to proceed with procedure.
--- NOTE | 2025-01-14 09:24 | W.PM.PROC2 ---
Procedure Note - Detailed Date of Procedure 01/14/25 Pre-op Diagnosis Cervical spondylosis, chronic cervicalgia Post-op Diagnosis Same Procedure Performed Diagnostic left Cervical Medial Branch Nerve Blocks at C3, C4, C5 Blocking the Ipsilateral C3-4, C4-5 facet joints under Fluoroscopic Guidance and with Contrast Control (2 levels blocked). Surgeon Armando Tillman MD [employer] Chief Scientist None. Anesthesia Local Description of Procedure INFORMED CONSENT: Risks, benefits and alternatives to the procedure were discussed in detail with the patient who expressed explicit understanding and consent to proceed. Patient was informed verbally and in written form regarding the risks associated with the procedure including the low risk of serious infection, bleeding/bruising, allergic reaction, nerve or organ injury, paralysis, procedural site pain or discomfort, worsening pain and/or mobility, failure to treat and/or disfigurement. The patient expressed explicit understanding and consent to proceed. All materials required for the procedure were available prior to procedure start. Site and side were marked prior to procedure and confirmed in the presence of the patient. PROCEDURE IN DETAIL: The patient was brought to the procedural suite and placed in the prone position with head stabilized with a ProneView pillow. Patient was made comfortable with use of pillows under the head/chest, hips and ankles. Skin overlying the injection site on the affected side(s) was prepared broadly with ChloraPrep applicator and draped in a sterile manner. Aseptic technique was used throughout. The endplates of the vertebral bodies at the site(s) of interest were aligned in the AP view. Ipsilateral oblique angulation was utilized to optimize visualization of the pars interarticularis at each target site. Local anesthesia was established by infiltration with approximately 5 mL of 0.5% lidocaine via a 1-1/2 inch 27-gauge needle divided over each injection site. A 25-gauge 3.5 inch Quincke spinal needle was advanced until the needle tip contacted the periosteum of the pars interarticularis at the target site, left C3 medial branch. Lateral view was utilized to confirm the appropriate placement of the needle tip just anterior to the center point of the interarticularis. In the Lateral view, 0.25 mL of Omnipaque 300 contrast medium was injected after negative aspiration for CSF, blood or other bodily fluid, showing appropriate extra-articular spread of contrast without evidence of intravascular, foraminal or intrathecal placement. A 0.25 mL solution of 0.5% PF bupivacaine was injected after negative repeat aspiration. Appropriate spread of the injectate was confirmed with washout of previously injected contrast. No parasthesias were elicited. Needle was removed completely intact without difficulty. The same exact procedure was repeated for all remaining levels on the ipsilateral side, left C4, C5 medial branch, modified as necessary to accommodate for the new target location with identical findings and results and no evidence of complication. Images were saved and documented in the patient chart. Patient's skin was cleansed and sterile bandage applied. The patient tolerated the procedure well. The patient was transported to the recovery area in stable condition where they were observed for an appropriate amount of time prior to discharge, without evidence of complication. Patient was instructed on the appropriate completion of a pain diary over the next 12-24 hours. The patient was instructed to avoid excessive activity for the next 48 hours, including climbing and frequent use of stairs. Showers only for 48 hours. They were instructed not to drive or operate heavy machinery for 24 hours. They are to monitor for severe headaches, fevers, chills, night sweats, erythema/swelling at the site or any other signs of infection, bleeding/bruising, bowel or bladder changes as well as new pain, weakness or numbness in the upper or lower extremity. Should they notice these changes, they are instructed to call our office immediately or report directly to the nearest Emergency Department if no answer or if after posted office hours. COMPLICATIONS: None COMMENTS: None CONTRAST WASTED: 29.25 mL Omnipaque 300. Complications No immediate complications Condition Stable Disposition Same day [facility] Billing Surgery - Charge Forward: Surgery Billing
[2025-01-14 09:57] VITALS: BMI 44.9
[2025-01-14 10:03] VITALS: BP 138/68; PULSE 55; RESP 20; TEMP 36.8; O2SAT 95
[2025-01-14 10:12] VITALS: BP 184/87; PULSE 77; RESP 16; O2SAT 93
[2025-01-14 10:18] VITALS: BP 160/74; PULSE 80; RESP 13; O2SAT 94
[2025-01-14 10:23] VITALS: BP 158/83; PULSE 79; RESP 15; O2SAT 93
[2025-01-14] MEDS: BUPivacaine HCL 0.5% 10 ML AMP 1.5 ML INFILTRATE (10:26)
[2025-01-14] MEDS: LIDOCAINE 1% PF INJ 5 ML VIAL 7 ML INFILTRATE (10:27)
[2025-01-14 10:28] VITALS: BP 149/81; PULSE 72; RESP 18; O2SAT 95
== END 2025-01-14 10:41 | disposition home or self-care (01) ==
LOC: ASC 09:31
PROVIDERS: Visit Provider Anesthesiology Pain Medicine
PROC: (CPT 64490; principal; 2025-01-14 10:30)
DX: M47.812 Spondylosis without myelopathy or radiculopathy, cervical region (principal); G89.29 Other chronic pain
CPT/HCPCS: 64490; 64491; 99199

== ENCOUNTER 2025-03-18 00:20 | Day surgery (SDC) | payer MEDICARE, OTHER, SELFPAY ==
[2025-03-03 15:35] VITALS: BMI 44.1
--- NOTE | 2025-03-03 15:36 | PC.NURSE ---
Report to the Outpatient Waiting Room, entrance under the green pavilion located off [facility], at time ___1145am____ on date __03/18/25 . Planned Procedure Time: _1:45pm .? Time changes happen often and if your time is changed the preop area will call you the afternoon before. - You and your visitor will be asked to self-screen and do not enter if you have any COVID symptoms. Please call surgeon if you need to reschedule. - A mask is optional within the hospital at this time. Patients may have - No food or drink from midnight until time of surgery and no smoking, or chewing tobacco (or any form of nicotine). No chewing gum, candy or mints. Take only the following medications with a SIP of water on the morning of surgery: ___Citalopram and Inhalers as prescribed DO NOT STOP ANY OF YOUR OTHER PRESCRIPTION MEDICATIONS PRIOR TO SURGERY EXCEPT THE FOLLOWING Hold all vitamins and supplements for 3 days per anesthesiologist. This includes your Prevagen OTC- date to take last dose is 03/14/25 Medications to discontinue per physician None Date to take last dose None Please no make-up, nail icelandic, hairspray, perfume, deodorant, or body powder the day of surgery.? No jewelry (including any body piercings) or valuables the day of surgery, leave them at home.? Please take a shower or bath the night before, or the morning of, surgery with an antibacterial soap.? Wear comfortable, loose fitting clothing.? - Jewelry must be removed prior to entering the operating room.? Rings and piercings that are not removed may be cut off. - The hospital will not accept responsibility for valuables.? - Please leave all valuables, including medications, at home the day of surgery. If you are going home after surgery, a licensed trash collector truck driver must drive you home.? - NO public transportation without another adult if you receive anesthesia. - We recommend that an adult stay with you for 24 hours following discharge. - We also recommend that you do not drive, make important decision, drink alcoholic beverages, or take any drugs that were not prescribed by your health care provider for at least 24 hours after your discharge time. Follow any additional instructions given to you from your surgeon. Telephone instructions given to _Patient and asked if any additional questions and then verbalized understanding. Patient advised to call surgeon office or pre surgery nurse liaison [phone] if any additional questions.
--- NOTE | ~2025-03-18 | XR_ITS ---
EXAMINATION: XR fluoroscopy no charge DATE: 03/18/2025 12:50 CDT INDICATION: THERMAL RADIO FREQ ABLATION LEFT C3,C4,C5 MEDIAL BRANCHES . TECHNIQUE: 5 fluoroscopic images of the cervical spine were obtained during left C3, C4, and C5 media l branch thermal radiofrequency ablation, performed by Armando Tillman MD. I was not present during the procedure. Fluoroscopy exposure time was 1 minute 22.3 seconds. Air Kerma 31.305 mGy. DAP 4.6363 mGym2. COMPARISON: None FINDINGS/IMPRESSION: Fluoroscopic documentation of left C3, C4, and C5 medial branch thermal radiofrequency ablation. Plea se refer to the operative note for complete procedural details . Reviewed, dictated and finalized at location K.
--- OUTSIDE RECORDS SUMMARY | 2025-03-18 00:23 | XMS_ITS | Clinical Summary ---
Author Organization [facility] [address] Address [address] [facility] [place] [address] Care Team Providers Care Oval Or Circular Glass Cutter Name Role Phone Enedina Valdes MD Primary Care Provider [phone] Source Comments [facility] [address],non-owned Affiliates and Associated Physician Practices is amultiple site organization consisting of ambulatory clinics and hospital sitesin [place], [place], [place] and [place]. This disclosure is being madepursuant to the Care Everywhere program and may not contain all information available regarding this patient. Last updated 18.[facility] [address] Allergies Active Allergy Reactions Criticality Noted Date Comments Donnie Inhibitors Cough 02/26/2025 Codeine Anxiety,Other Low 03/06/2015 Patient feels jittery Medications * Be aware that medications may not be up to date on this document. Alwaysverify current medications with the patient. albuterol HFA (Proventil; Ventolin; Proair) 108 (90 Base) MCG/ACT inhaler ProAir HFA Active atorvastatin (Lipitor) 10 MG tablet Take 1 (one) tablet by mouth once daily 06/29/20 Active Biotin 10 MG Active Breo Ellipta 200-25 MCG/ACT inhaler INHALE 1 PUFF BY MOUTH DAILY. RINSE AND SPIT AFTER EACH USE 09/04/20 23 Active meclizine (Antivert) 25 MG tablet Take 1 (one) tablet by mouth 3 times daily as needed For dizziness. 08/09/20 Active Myrbetriq 50 MG tablet Take 1 (one) tablet by mouth once daily 09/05/20 Active mirtazapine (Remeron) 15 MG tablet Take 1 (one) tablet by mouth 08/29/20 Active montelukast (Singulair) 10 MG tablet Take 1 (one) tablet by mouth every evening 06/29/20 Active losartan (Cozaar) 100 MG tablet Take 0.5 (one-half) tablet by mouth once daily 45 tablet 3 09/17/20 24 2024 Active eszopiclone (Lunesta) 1 MG tablet TAKE 1 TABLET BY MOUTH EVERY DAY AT BEDTIME 90 tablet 3 10/09/20 24 Active betamethasone dipropionate (Diprosone) 0.05 % cream Apply to affected area 2 times daily Active tacrolimus (Protopic) 0.1 % ointmentIndicati ons:Other pruritus Apply to affected areas two times daily. 30 days supply. 100 g 11 10/07/20 24 Active triamcinolone acetonide (Kenalog) 0.1 % creamIndications :Other pruritus Apply to affected area on trunk and extremities BID. 30 day supply. 454 g 1 01/15/20 25 Active fexofenadine (Diana) 180 MG tablet Take 1 (one) tablet by mouth once daily 01/23/20 25 Active suvorexant (Belsomra) 5 MG tabletIndication s:Type 2 diabetes mellitus with other circulatory complications (HCC) Take 1 (one) tablet by mouth nightly as needed for Insomnia 30 tablet 5 01/23/20 25 Active citalopram (CeleXA) 40 MG tablet Take 0.5 (one-half) tablet by mouth once daily 90 tablet 3 03/05/20 25 Active citalopram (CeleXA) 40 MG tablet Take 0.5 (one-half) tablet by mouth once daily 06/29/20 23 2024 Discontinued Active Problems Problem Noted Date Diagnosed Date Diabetes mellitus type II, non insulin dependent 03/14/2019 Essential hypertension 03/14/2019 Migraine with aura and witho ut status migrainosus, not intractable 03/25/2016 Sensorineural hearing loss 01/15/2016 Dizziness and giddiness 01/13/2016 Other vitreous opacities, unspecified eye 2014 Encounters Date Type Department Care Team Description 03/05/2025 Refill [facility] [address] [place] [phone] Enedina Valdes MD Refill Request 02/26/2025 Orders Only [facility] [address] [place] [phone] Enedina Valdes MD Unilateral primary osteoarthritis, right hip 02/05/2025 Telephone [facility] Endocrinology [address] [place] [address], [place] [address] Enedina Valdes MD Question (Question about Citalopram) 01/22/2025 10:55 AM CDT - 01/22/2025 11:59 PM CDT Hospital Encounter [facility] [address] [place] [address] Crystal Lemon APRN-INTERNAL COMMUNICATIONS WRITER Discharge Disposition: Home or Self Care 01/22/2025 8:30 AM CDT Office Visit [facility] [address] [place] [address], [place] [address] Enedina Valdes MD 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 (FLUZONE HIGH-DOSE QUADRIVALENT; 65Y+), 0.7 ML (HD-IIV4) 08/10/2023,08/09/2022,08/12/2021 INFLUENZA VACCINE, HIGH-DOSE , TRIV. (FLUZONE HIGH-DOSE TRIVALENT; 65Y+) (HD-IIV3) 09/02/2019,08/21/2018,08/24/2017,2015,09/10/2015 INFLUENZA VACCINE, TRIV. (FL UZONE; FLULAVAL; FLUARIX; AFLURIA TRIVALENT; 6MO+), 0.5 ML (IIV3) 08/01/2020 PNEUMOCOCCAL PCV20 CONJ VAC IM 06/08/2023 PNEUMOCOCCAL PPV VACCINE 09/28/2017 Pneumococcal Pcv13 Conj 09/08/2016 RSV ABRYSVO PREG OR 60y+ 0.5mL 08/10/2023 TDAP, HISTORIC VACCINE 08/25/2021 VARICELLA 09/09/2016 ZOSTER VACCINE, LIVE 02/20/2014 Zoster Hzv Vacc Recombinant Inj Im 10/08/2022,,09/09/2016 Family History Medical History Relation Name Comments Cancer Brother Cataract Brother Heart Disease Brother Hypertension Brother Heart Disease Father Diabetes Maternal Grandmother Heart Disease Mother Diabetes Paternal Grandmother Relation Name Status Comments Brother Father Maternal Grandmother Mother Paternal Grandmother Social History Tobacco Use Types Packs/Day Years Used Date Smoking Tobacco: Former Cigarettes 0.5 52.3 S tarted: 1973 Smokeless Tobacco: Never Tobacco Cessation:Ready to Q uit: Not Asked; Counseling Given: Not Answered Alcohol Use Standard Drinks/Week Comments Yes 0 (1 standard drink = 0.6 oz pur e alcohol) PHQ-2 Answer Date Recorded Patient Health Questionnaire-2 Score 0 08/19/2024 Comments Unknown Sex and Gender Information Value Date Recorded Sex Assigned at Not on file Legal Sex Female 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 Gender Identity Not on file Sexual Orientation Not on file Last Filed Vital Signs Vital Sign Reading Time Taken Comments Blood Pressure 137/83 01/22/2025 8:25 AM CDT Pulse 64 01/22/2025 8:25 AM CDT Temperature 36.2 C (97.2 F) 08/19/2024 2:35 PM CDT Respiratory Rate 16 04/04/2016 11:26 AM CDT Oxygen Saturation 95% 01/22/2025 8:25 AM CDT Inhaled Oxygen Concentration - - Weight 107.5 kg (237 lb) 01/22/2025 8:25 AM CDT Height 154.9 cm (5' 1 ) 08/19/2024 2:35 PM CDT Body Mass Index 44.78 08/19/2024 2:35 PM CDT Plan of Treatment Upcoming Encounters Date Type Department Care Team (Late st Contact Info) Description 04/02/2025 1:00 PM CDT [facility] [address] [place] [address] Rob Sears, MANAGER MEDIA-INTERNAL COMMUNICATIONS WRITER [address] [facility] [address] [place] [address] 05/06/2025 1:10 PM CDT [facility] D[facility] [address] [place] [address], [place] [phone] Melanie Williamson MD [address] [place], [place] [address] [phone] 05/28/2025 10:30 AM CDT Office Visit [facility] [address] [place] [address] [place] [phone] Enedina Valdes MD [address] [place] [address] [place] [address] Health Maintenance Due Date Last Done Comments MEDICARE AWV 12 MONTHS 1940 DIABETES RETINOPATHY SCREENING 04/15/2024 05/20/2015, 04/24/2015, 04/17/2015, Additional history exists DIABETES-FOOT EXAM WITH MONOFILAMENT 04/15/2024 COVID-19 VACCINE ( season) 2024 02/08/2024, 07/06/2023, 09/18/2022, Additional history exists DEPRESSION SCREENING 11/13/2024 04/15/2024 DIABETES - URINE PROTEIN SCREENING 11/13/2024 DIABETES-HGB A1C 07/25/2025 01/22/2025, 04/15/2024 DIABETES-SERUM CREATININE 01/22/20262024, 04/23/2024, 09/19/2023 DTAP/TDAP/TD VACCINES (2 - Td or Tdap) 08/25/2031 08/25/2021 ZOSTER VACCINE Completed 10/08/2022, 11/14, 09/09/2016, Additional history exists PNEUMOCOCCAL VACCINE 50+ Completed 023, 09/28/2017, 09/08/2016 Respiratory Syncytial Virus (RSV) Vaccine Pt: or over 60 yrs Completed 08/10/2023 INFLUENZA VACCINE Completed 07/14/2024, , 08/09/2022, Additional history exists BONE DENSITY TESTING Completed 10/08/2024 HEPATITIS B VACCINE Aged Out No longe r eligible based on patient's age to complete this topic HIB VACCINE Aged Out No longer eligi ble based on patient's age to complete this topic HPV VACCINE Aged Out No longer eligi ble based on patient's age to complete this topic MENINGOCOCCAL (Group B) VACCINE SHARED DECISION-MAKING Aged Out No longer eligible based on patient's age to complete this topic MENINGOCOCCAL GROUPS A/C/Y/W VACCINE Aged Out No longer eligible based on patient's age to complete this topic Procedures Procedure Name Priority Date/Time Associated Diagnosis Comments FOLATE Routine 01/22/2025 11:21 AM CDT Essential hypertension VITAMIN B12 Routine 01/22/2025 11:21 AM CDT Essential hypertension CBC W AUTO DIFFERENTIAL Routine 01/22/2025 11:21 AM CDT Essential hypertension COMPREHENSIVE METABOLIC PANEL Routine 01/22/2025 11:21 AM CDT Essential hypertension TSH REFLEX FREE T4 Routine 01/22/2025 11 :21 AM CDT Essential hypertension LIPID PROFILE Routine 01/22/2025 11:21 AM CDT Essential hypertension VITAMIN D 25-HYDROXY Routine 01/22/2025 11:21 AM CDT Essential hypertension OK DRAIN/INJECT LARGE JOINT/BURSA Routine 01/22/2025 10:27 AM CDT Greater trochanteric bursitis of left hip HEMOGLOBIN A1C - POINT OF CARE (AMB) [facility] Routine 01/22/2025 9:35 AM CDT Type 2 diabetes mellitus with other circulatory complications DEXA BONE DENSITY AXIAL SKELETON Routine 10/08/2024 10:16 AM BLOCK MACHINE OPERATOR Vitamin D deficiency Age related osteoporosis, unspecified pathological fracture presence from Last 3 Months or Most Recently Relevant to Health Maintenance Results * TSH REFLEX FREE T4 (01/22/2025 11:21 AM CDT) TSH 1.826 0.350 - 4.940 uIU/mL 01/22/2025 12:43 PM CDT [facility] Blood BLOOD SPECIMEN / Unknown Lab Venipuncture / Unknown 01/22/2025 11:21 AM CDT 01/22/2025 11:38 AM CDT Crystal Lemon MANAGER MEDIA-INTERNAL COMMUNICATIONS WRITER LAB - CHEMISTRY ORDERABLES Final Result Performing Organization Address City/State/[facility] Co de Phone Number [address] [address], [facility] [phone] * VITAMIN D 25-HYDROXY (01/22/2025 11:21 AM CDT) Vitamin D, 25 Hydroxy 37.9 30.0 - 80.0 ng/mL 01/22/2025 12:43 PM CDT [facility] Comment: The recommendations for 25-Hydroxy Vitamin D clinical decision points are as follows: Deficient: <20.0 ng/mL Insufficient: 20.0 - 29.9 ng/mL Sufficient: 30.0 - 100.0 ng/mL Potential Toxicity: >100 ng/mL Reference: The Endocrine Society Clinical Practice Guidelines. 2011 If the 25-Hydroxy Vitamin D results are inconsitent with clinical evidence, it is recommended that follow-up testing using a method such as LC/MS/MS be performed to confirm the result. Blood BLOOD SPECIMEN / Unknown Lab Venipuncture / Unknown 01/22/2025 11:21 AM CDT 01/22/2025 11:38 AM CDT Crystal DOMINGUEZ LAB - CHEMISTRY ORDERABLES Final Result [facility] [address] [place] [address], [facility] [phone] * (ABNORMAL) CBC W/ DIFFERENTIAL (01/22/2025 11:21 AM CDT) WBC 9.1 4.0 - 10.7 x10E9/L 01/22/2025 11:46 AM [facility] RBC Count 4.16 3.90 - 5.20 x10E12/L 01/22/2025 11:46 AM [facility] Hemoglobin 13.3 11.9 - 15.8 g/dL 01/22/2025 11:46 AM [facility] Hematocrit 41.1 34.8 - 46.1 % 01/22/2025 11:46 AM [facility] MCV 98.8(H) 80.0 - 98.0 fL 01/22/2025 11:46 AM [facility] MCH 32.0 26.7 - 33.6 pg 01/22/2025 11:46 AM [facility] MCHC 32.4 31.7 - 36.3 g/dL 01/22/2025 11:46 AM [facility] RDW-CV 14.1 11.3 - 14.8 % 01/22/2025 11:46 AM [facility] Platelet Count 270 150 - 420 x10E9/L 01/22/2025 11:46 AM [facility] MPV 10.5 7.8 - 11.4 fL 01/22/2025 11:46 AM [facility] Neutrophil % 46.8 41.0 - 74.0 % 01/22/2025 11:46 AM [facility] Lymphocyte % 34.8 17.0 - 47.0 % 01/22/2025 11:46 AM [facility] Monocyte % 10.6 3.0 - 11.0 % 01/22/2025 11:46 AM [facility] Eosinophil % 6.3 0.0 - 7.0 % 01/22/2025 11:46 AM [facility] Basophil % 1.3 0.0 - 1.6 % 01/22/2025 11:46 AM [facility] Immature Granulocytes % 0.2 0.0 - 1.0 % 01/22/2025 11:46 AM [facility] Neutrophil Absolute 4.26 1.60 - 7.50 x10E9/L 01/22/2025 11:46 AM [facility] Lymphocyte Absolute 3.17 1.00 - 4.40 x10E9/L 01/22/2025 11:46 AM [facility] Monocyte Absolute 0.97 0.15 - 1.00 x10E9/L 01/22/2025 11:46 AM [facility] Eosinophil Absolute 0.57 0.00 - 0.60 x10E9/L 01/22/2025 11:46 AM [facility] Basophil Absolute 0.12 0.00 - 0.13 x10E9/L 01/22/2025 11:46 AM [facility] Blood BLOOD SPECIMEN / Unknown Lab Venipuncture / Unknown 01/22/2025 11:21 AM CDT 01/22/2025 11:38 AM CDT Crystal Lemon MANAGER MEDIA-INTERNAL COMMUNICATIONS WRITER LAB - HEMATOLOGY ORDERABLE S Final Result Performing Organization Address City/State/[facility] Co de Phone Number [facility] [address] [place] [address], [facility] [phone] * (ABNORMAL) COMPREHENSIVE METABOLIC PANEL (01/22/2025 11:21 AM CDT) BUN 13 7 - 26 mg/dL 01/22/2025 12:11 PM [facility] Creatinine 0.77 0.56 - 0.96 mg/dL 01/22/2025 12:11 PM [facility] Sodium 137 136 - 145 mmol/L 01/22/2025 12:11 PM [facility] Potassium 4.2 3.5 - 4.5 mmol/L 01/22/2025 12:11 PM [facility] Chloride 104 98 - 107 mmol/L 01/22/2025 12:11 PM [facility] CO2 26 22 - 29 mmol/L 01/22/2025 12:11 PM [facility] Glucose 96 70 - 99 mg/dL 01/22/2025 12:11 PM [facility] Calcium 9.9 8.4 - 10.2 mg/dL 01/22/2025 12:11 PM [facility] Protein Total 7.7 6.0 - 8.3 g/dL 01/22/2025 12:11 PM [facility] Albumin 4.0 3.4 - 5.0 g/dL 01/22/2025 12:11 PM [facility] Bilirubin Total 0.8 0.2 - 1.2 mg/dL 01/22/2025 12:11 PM [facility] Alkaline Phosphatase 65 40 - 150 U/L 01/22/2025 12:11 PM [facility] ALT 29 5 - 55 U/L 01/22/2025 12:11 PM [facility] AST 30 5 - 34 U/L 01/22/2025 12:11 PM [facility] Anion Gap 7 6 - 16 01/22/2025 12:11 PM [facility] BUN/Creatinine Ratio 17 7 - 23 01/22/2025 12:11 PM [facility] Osmolality Calculated 284 275 - 295 mOsm/kg 01/22/2025 12:11 PM [facility] Albumin/Globulin Ratio 1.1 1.1 - 2.3 01/22/2025 12:11 PM [facility] eGFR by CKD-EPI 76(L) >=90 mL/min/1.7 3 m2 01/22/2025 12:11 PM [facility] Blood BLOOD SPECIMEN / Unknown Lab Venipuncture / Unknown 01/22/2025 11:21 AM CDT 01/22/2025 11:38 AM T Crystal DOMINGUEZ LAB - CHEMISTRY ORDERABLES Final Result [address] [address], [facility] [phone] * FOLATE (01/22/2025 11:21 AM CDT) Folate 10.1 7.0 - 31.4 ng/mL 01/22/2025 12:43 PM CDT [facility] Blood BLOOD SPECIMEN / Unknown Lab Venipuncture / Unknown 01/22/2025 11:21 AM CDT 01/22/2025 11:38 AM CDT Crystal DOMINGUEZ LAB - CHEMISTRY ORDERABLES Final Result Performing Organization Address City/[facility]/ZIP Co de Phone Number [address] [address], [place] [phone] * VITAMIN B12 (01/22/2025 11:21 AM CDT) [facility] Vitamin B12 334 213 - 816 pg/mL 01/22/2025 12:43 PM CDT [facility] Blood BLOOD SPECIMEN / Unknown Lab Venipuncture / Unknown 01/22/2025 11:21 AM CDT 01/22/2025 11:38 AM CDT Crystal DOMINGUEZ LAB - CHEMISTRY ORDERABLES Final Result [address] [address], [place] [phone] * LIPID PROFILE (01/22/2025 11:21 AM CDT) [facility] Cholesterol Total 144 <200 mg/dL 01/22/2025 12:11 PM CDT [facility] HDL 69 >40 mg/dL 01/22/2025 12:11 PM CDT [facility] Comment: ATP III Classification of HDL Cholesterol: <40 mg/dL: Considered a major risk factor. >60 mg/dL: Considered a negative risk factor. LDL Calculated 51 <100 mg/dL 01/22/2025 12:11 PM CDT [facility] Comment: ATP III Classification of LDL Cholesterol: <100 mg/dL: Optimal 100 - 129 mg/dL: Near Optimal/Above Optimal 130 - 159 mg/dL: Borderline High 160 - 189 mg/dL: High >190 mg/dL: Very High Triglycerides 122 <150 mg/dL 01/22/2025 12:11 PM CDT [facility] Comment: ATP III Classification of Triglycerides: <150 mg/dL: Normal 150 - 199 mg/dL: Borderline High 200 - 400 mg/dL: High >500 mg/dL: Very High Blood BLOOD SPECIMEN / Unknown Lab Venipuncture / Unknown 01/22/2025 11:21 AM CDT 01/22/2025 11:38 AM CDT us Crystal Lemon MANAGER MEDIA-INTERNAL COMMUNICATIONS WRITER LAB - CHEMISTRY ORDERABLES Final Result [facility] [address] [place] [address], [facility] [phone] * OK DRAIN/INJECT LARGE JOINT/BURSA (01/22/2025 10:27 AM CDT) Narrative Enedina Valdes MD - 01/22/2025 10:27 AM CDT Enedina Valdes MD 01/24/2025 3:31 PM PROCEDURE NOTE Sonal Burleson was seen today for left trochanteric bursitis. I recommended Injection because of pain. I reviewed the dominguez risks and benefits associated with this procedure. The patient indicated a reasonable understanding of the indication for this procedure, as well as the risks and benefits associated with it. Sonal Burleson agreed to have the procedure performed and signed the consent form which I placed in the patient's chart. Site: left lateral thigh at greater trochanter Approach: 90 degree entry to skin, using 2 stick entry, needle advance over trochanter with fanning of medications in 4 quadrants around bursae. Sterile prep used: betadine Anesthetic used: 2 ml 1% lidocaine without epi Other medication used: 40 mg triamcinolone acetonide Complications: none Estimated Blood Loss: 1 ml Patient report following procedure: no side effects us Enedina Valdes MD PROCEDURE/MINOR SURGICAL ORDE ANNIKA Final Result * HEMOGLOBIN A1C - POINT OF CARE (AMB) [facility] (01/22/2025 9:35 AM CDT) Hemoglobin A1c POCT 6.0 % [facility] BLOOD SPECIMEN / Unknown 01/22/2025 9:35 AM CDT Enedina Valdes MD LAB - POINT OF CARE ORDERABLE S Final Result [facility] Sherlyn [facility] [address] [facility], [place] [address], [facility] [phone] * BONE DENSITY AXIAL SKELETON(1OR MORE SITES)[id number] (10/08/2024 10:16 AM BLOCK MACHINE OPERATOR) Anatomical Region Laterality Modality Other 10/08/2024 11:3 2 AM BLOCK MACHINE OPERATOR Narrative 10/14/2024 10:04 AM BLOCK MACHINE OPERATOR PROCEDURE: DEXA BONE DENSITY AXIAL SKELETON DATE/TIME OF EXAM: 10/08/2024 10:16 AM Indication: E55.9: Vitamin D deficiency M81.0: Age related osteoporosis, unspecified pathological fracture presence COMPARISON: None. LUMBAR SPINE (L1-L4): Bone mineral density (g/cm2): 1.070 Current T-score: 0.2 LEFT FEMORAL NECK: Bone mineral density (g/cm2): 0.740 Current T-score: -1.0 FRAX not reported because: All T-scores for spine total, hip total, femoral neck at or above -1.0. BONE DENSITY ASSESSMENT: WHO Category: Normal. World Health Organization definitions of standard deviations relative to the mean T-score: Normal bone density = -1.0 and above Osteopenia = between -1.0 and -2.5 Osteoporosis = -2.5 and below > Dictated by Claire Dale (Erecting Crane Operator) 10/08/2024 11:32 AM Marisa Becker DO have personally reviewed and interpreted this examination/study. > Interpreting Provider: Marisa Harvey DO on 10/14/2024 10:04 AM Procedure Note Marisa Harvey DO - 10/14/2024 PROCEDURE: DEXA BONE DENSITY AXIAL SKELETON DATE/TIME OF EXAM: 10/08/2024 10:16 AM Indication: E55.9: Vitamin D deficiency M81.0: Age related osteoporosis, unspecified pathological fracturepresence COMPARISON: None. LUMBAR SPINE (L1-L4): Bone mineral density (g/cm2): 1.070 Current T-score: 0.2 LEFT FEMORAL NECK: Bone mineral density (g/cm2): 0.740 Current T-score: -1.0 FRAX not reported because: All T-scores for spine total, hip total, femoral neck at or above -1.0. BONE DENSITY ASSESSMENT: WHO Category: Normal. World Health Organization definitions of standard deviations relative to the mean T-score: Normal bone density = -1.0 and above Osteopenia = between -1.0 and -2.5 Osteoporosis = -2.5 and below > Dictated by Claire Dale (Erecting Crane Operator) 10/08/2024 11:32AM Marisa Becker DO have personally reviewed and interpreted this examination/study. > Interpreting Provider: Marisa Harvey DO on 10/14/2024 10:04 AM Crystal Lemon APRN-INTERNAL COMMUNICATIONS WRITER DEXA ORDERABLES Final Resu lt from Last 3 Months or Most Recently Relevant to Health Maintenance Insurance MEDICARE [facility] MEDICARE [facility] Care Teams Oval Or Circular Glass Cutter Relationship Specialty Start Date End Date Enedina Valdes MD [address] [place] [address] PCP - General Internal Medicine Geriatric Medicine 02/06/25
--- OUTSIDE RECORDS SUMMARY | 2025-03-18 00:23 | XMS_ITS | Clinical Summary ---
Author Organization [facility] Address [address] [place] [address] Care Team Providers Care Licensed Tax Consultant Name Role Phone Kendra Adrian MD Primary Care Provider [phone] Allergies Active Allergy Reactions Criticality Noted Date Comments Codeine Anxiety,Other (see comment) Low 03/06/2015 Patient feels jittery Patient feels jittery Medications albuterol sulfate HFA 108 (90 Base) MCG/ACT inhaler Ventolin HFA 90 mcg/actuation aerosol inhaler Active aspirin EC 81 MG tablet Take 81 mg by mouth daily. Active ciprofloxacin 250 MG tablet Take 250 mg by mouth every 12 (twelve) hours. 08/12/20 21 Active BREO ELLIPTA 200-25 MCG/INH inhaler INHALE 1 PUFF BY MOUTH DAILY. RINSE AND SPIT AFTER EACH USE 12/28/19 22 Active citalopram 40 MG tablet daily. Active ACCU-CHEK GUIDE test strip CHECK BLOOD SUGAR ONCE DAILY DIRECTED WHILE FASTING 02/10/20 22 Active ibuprofen 600 MG tablet ibuprofen 600 mg tablet Active losartan 100 MG tablet daily. Active meclizine 25 MG tablet meclizine 25 mg tablet Take 1 tablet as needed by oral route. Active metFORMIN 500 MG tablet 500 mg daily. Active mirabegron ER 50 MG 24 hr tablet Myrbetriq 50 mg tablet,extended release Active montelukast 10 MG tablet daily. Active nystatin cream nystatin 100,000 unit/gram topical cream Active nitrofurantoin, macrocrystal-monoh ydrate, 100 MG capsule nitrofurantoin monohydrate/macro crystals 100 mg capsule Active temazepam 30 MG capsule temazepam 30 mg capsule Active triamcinolone 0.025 % cream APPLY TO ITCHY AREAS ON BACK TWICE DAILY FOR 4 WEEKS. STOP FOR 2 WEEKS BEFORE RESTARTING. DO NOT APPLY TO FACE. 01/14/20 22 Active Accu-Chek FastClix Lancets Misc Accu-Chek Fastclix Lancet Drum TEST BS ONCE D AND PRN. MAX TID Active Glucose Blood (ACCU-CHEK GUIDE) test strip Accu-Chek Guide test strips Active oxybutynin 5 MG tablet Take 5 mg by mouth in the morning. 03/10/20 Active ondansetron 8 MG disintegrating tablet ondansetron 8 mg disintegrating tablet Active atorvastatin 10 MG tablet Take 10 mg by mouth in the morning. 02/23/20 Active TRIAMCINOLONE ACETONIDE 0.1% CREAM/0.1% OINTMENT MIXTURE 11/15/19 Active albuterol sulfate HFA 108 (90 Base) MCG/ACT inhaler ProAir HFA Act severo fluticasone furoate-vilanterol 200-25 MCG/INH inhaler Breo Ellipta 200 mcg-25 mcg/dose powder for inhalation Active minocycline 50 MG tablet daily. Active Fluticasone Propionate (FLONASE ALLERGY RELIEF NA) Flonase Allergy Relief as needed Active fexofenadine 180 MG tablet Rx: Diana Active omega-3 fatty acid 500 MG capsule Take 500 mg by mouth in the morning. Active vitamin D2, ergocalciferol, (VITAMIN D, ERGOCALCIFEROL,) 39550 UNITS capsule Take 50,000 Units by mouth. Active Biotin 10 MG Cap Act severo Multiple Vitamins-Minerals (MULTI COMPLETE OR) Active [facility] Natural Products (NEURIVA OR) Active Biotin w/ Vitamins C & E (HAIR/SKIN/NAILS OR) Active Collagen Hydrolysate, Bovine, Powder Activ e Methylsulfonylmeth ane (MSM) 900 MG Cap Active Glucosamine 500 MG Cap Active APPLE CIDER VINEGAR OR Active Active Problems No known active problems Immunizations Immunization Administration Dates Next Due Fluzone High Dose - >Age 65 (Prefilled Syringe) 08/12/2021 Influenza (Generic) 08/01/2020,09/09/2014,2012 Influenza Adult (Generic) 09/02/2019,07/2018,08/24/2017,2015,09/10/2015 PFIZER COVID-19 (ORIGINAL FORMULATION, PURPLE CAP) mRNA, LNP-S, PF, 30 MCG/0.3 ML DOSE 08/23/2021 Pneumococcal (Pneumovax 23) 09/28/2017 Pneumococcal (Prevnar 13) 09/08/2016 Shingrix 12/10/2021,09/09/2016 Tdap (Generic) 08/25/2021 Varicella (Varivax) 09/09/2016 Zoster (Zostavax) 34328 Unt/0.65Ml 02/20/2014 Family History Medical History Relation Comments Cancer Brother Heart Disease Father No Known Problems Maternal Aunt No Known Problems Maternal Grandfather No Known Problems Maternal Grandmother No Known Problems Maternal Uncle Heart Disease Mother No Known Problems Paternal Aunt No Known Problems Paternal Grandfather No Known Problems Paternal Grandmother No Known Problems Paternal Uncle No Known Problems Sister Relation Status Comments Brother Father Maternal Aunt Maternal Grandfather Maternal Grandmother Maternal Uncle Mother Paternal Aunt Paternal Grandfather Paternal Grandmother Paternal Uncle Sister Social History Tobacco Use Types Packs/Day Years Used Date Smoking Tobacco: Former Cigarettes Q uit: 2008 Smokeless Tobacco: Never Tobacco Cessation:Counseling Given: No Comments:NA Alcohol Use Standard Drinks/Week Comments Not Currently 0 (1 standard drink = 0.6 oz pur e alcohol) NA PHQ-2 Answer Date Recorded PHQ-2 Score - If the patient scores above 3, please move on to questions 3-9 0 04/04/2022 Comments Unknown Sex and Gender Information Value Date Recorded Sex Assigned at Not on file Legal Sex Female 4:51 PM CDT Gender Identity Female 02/15/2022 4:28 PM CDT Sexual Orientation Straight 04/01/2022 12 :15 PM CDT Last Filed Vital Signs Vital Sign Reading Time Taken Comments Blood Pressure 138/77 04/04/2022 3:24 PM CDT Pulse 61 04/04/2022 3:23 PM CDT Temperature 37.4 C (99.3 F) 04/04/2022 3:23 PM CDT Respiratory Rate 20 02/16/2022 1:43 PM CDT Oxygen Saturation 97% 04/04/2022 3:23 PM CDT Inhaled Oxygen Concentration - - Weight 101.6 kg (224 lb) 04/04/2022 3:23 PM CDT Height 152.4 cm (5') 04/04/2022 3:23 PM CDT Body Mass Index 43.75 04/04/2022 3:23 PM CDT Plan of Treatment Health Maintenance Due Date Last Done Comments Meningococcal Vaccine (1 - Risk 2-dose series) 1942 Meningococcal B Vaccine (1 o f 5 - Increased Risk) 1950 Annual Medicare Wellness Visit 2005 Dexa Scan (General) 2005 RSV Immunization or 60+ Years (1 - 1-dose 75+ series) 2015 COVID-19 Vaccine (4 - 2023-2 5 season) 2024 08/23/2021, 01/23/2021, 12/30/2020 DTaP, Tdap and Td Vaccines ( 2 - Td or Tdap) 08/25/2031 08/25/2021 Pneumococcal Vaccine: 50+ Years Completed 09/28/2017, 09/08/2016 Zoster Vaccines Completed 12/10/2021, 09/09/2016, 02/20/2014 RSV Immunizations Under 20 Months Aged Out No longer eligible b ased on patient's age to complete this topic Insurance MEDICARE [facility] Care Teams Licensed Tax Consultant Relationship Specialty Start Date End Date Kendra Adrian MD [address] [place] [address] PCP - General FAMILY PRACTICE 02/16/22
--- OUTSIDE RECORDS SUMMARY | 2025-03-18 00:23 | XMS_ITS | Encounter Summary ---
Author Organization [facility] Facility Care Team Providers Care Ceo Name Role Phone Atilio Jj MD Primary Care Provider [phone] Siomara Dudley MD Primary Care Provider [phone] Enedina Valdes MD Primary Care Provider [phone] Encounter Details Date Type Department Care Team (Latest Contact Info) Description 06/07/2018 Orders Only [facility]INCON[facility] ProviderSujey MD [address] [place] [address] Social History Tobacco Use Types Packs/Day Years Used Date Smoking Tobacco: Never Assessed Comments Unknown Sex and Gender Information Value Date Recorded Sex Assigned at Not on file Legal Sex Female 1:41 PM BLUE LINE TRIMMER Gender Identity Not on file Sexual Orientation Not on file documented as of this encounter Plan of Treatment Not on file documented as of this encounter Procedures Procedure Name Priority Date/Time Associated Diagnosis Comments PROCEDURE - RESULT 06/07/2018 12 :00 AM CDT documented in this encounter Results * PROCEDURE - RESULT (06/07/2018 12:00 AM CDT) Narrative 06/07/2018 12:00 AM CDT Ordered by an unspecified provider. Historical Provider Final Res ult documented in this encounter Visit Diagnoses Not on filedocumented in this encounter Care Teams Ceo Relationship Specialty Start Date End Date Atilio Jj MD [address] [facility] [address] [place], [place] [id number] PCP - General Internal Medicine 02/06/19 03/13/19 iSomara Dudley MD [address] [facility] [address] [facility] [address] [place] [address] PCP - General Family Practice 03/14/19 01/05/25 Enedina Valdes MD [address] [address] PCP - General Geriatric Medicine 01/06/25 documented as of this encounter
--- OUTSIDE RECORDS SUMMARY | 2025-03-18 00:23 | XMS_ITS | Encounter Summary ---
Author Organization [facility] Address [address] [place] [address] Care Team Providers Care Host/Hostess Head Name Role Phone Atilio Jj MD Primary Care Provider [phone] Kendra Adrian MD Primary Care Provider [phone] Unknown, Provider Primary Care Provider Enedina Isaac MD Primary Care Provider [phone] Encounter Details Date Type Department Care Team (Late Contact Info) Description 10/10/2022 Lab Requisition [facility] Care DermPath Lab [address] [facility] [place] [address] [place] [address] Social History Tobacco Use Types Packs/Day Years Used Date Smoking Tobacco: Every Day Cigarettes Smokeless Tobacco: Never Alcohol Use Standard Drinks/Week Comments Yes 0 (1 standard drink = 0.6 oz pur e alcohol) Comments Unknown Sex and Gender Information Value Date Recorded Sex Assigned at Not on file Legal Sex Female 5:25 PM PRINCIPAL MILITARY ANALYST Gender Identity Not on file Sexual Orientation Not on file documented as of this encounter Plan of Treatment Upcoming Encounters Date Type Department Care Team (Late Contact Info) Description 04/02/2025 1:00 PM CDT Office Visit [facility] - Orthopedic Surgery [address] [place] [id number] Rob Sears, CAR REPAIRER APPRENTICE-BUTTON SAWYER [address] [facility] [address] [place] [address] 05/06/2025 1:10 PM CDT Office Visit [facility] - Dermatology [address] [place] [address], [place] [address] Melanie Williamson MD [address] [place], [place] [address] [address] 05/28/2025 10:30 AM CDT Office Visit [facility] - Geriatrics [address] [place] [address], [place] [phone] Enedina Valdes MD [address] [place] [address] documented as of this encounter Procedures Procedure Name Priority Date/Time Associated Diagnosis Comments DERMATOPATHOLOGY Routine 10/05/2022 12:0 0 AM PRINCIPAL MILITARY ANALYST documented in this encounter Results * DERMATOPATHOLOGY (10/05/2022 12:00 AM PRINCIPAL MILITARY ANALYST) Case Report Dermatopathology Report Case: [id number] Authorizing Provider: Roberto Roy MD Collected: 10/05/2022 12:00 AM Ordering Location: [facility] Received: 10/10/2022 12:12 PM Pathologist: Mariela Dumont MD Specimens: A) - Skin, top left ear B) - Skin, left side neck behind jawline C) - Skin, left upper chest 4:58 PM PRINCIPAL MILITARY ANALYST DERMATOPATHOLOGY LABORATORY Final Diagnosis Specimen A. SKIN, top left ear: SOLAR LENTIGO (L81.4) Specimen B. SKIN, left side neck behind jawline: SOLAR LENTIGO (L81.4) Specimen C. SKIN, left upper chest: SEBORRHEIC KERATOSIS, MACULAR; INFLAMED (L82.1) 2 4:58 PM [facility] DERMATOPATHOLOGY LABORATORY Clinical History A-B: Lentigo, Other C: SCC, BCC 2 4:58 PM [facility] DERMATOPATHOLOGY LABORATORY Gross Description Specimen A: Received is one formalin filled container labeled with the patient's name and designated top left ear. The specimen consists of a shave biopsy measuring 7x7x1 mm. Jar 0. Specimen B: Received is one formalin filled container labeled with the patient's name and designated left side neck behind jawline. The specimen consists of a shave biopsy measuring 8x7x1 mm. Jar 0. Specimen C: Received is one formalin filled container labeled with the patient's name and designated left upper chest. The specimen consists of a shave biopsy measuring 10x8x1 mm. Jar 0. 2 4:58 PM [facility] DERMATOPATHOLOGY LABORATORY Microscopic Description Specimen A. SKIN, top left ear: There is orthokeratosis. There is a slight increase in epidermal thickness with lentiginous buds of hyperpigmented keratinocytes. The number of melanocytes is only mildly increased. In the dermis, there is basophilic degeneration of elastic fibers. Specimen B. SKIN, left side neck behind jawline: There is orthokeratosis. There is a slight increase in epidermal thickness with lentiginous buds of hyperpigmented keratinocytes. The number of melanocytes is only mildly increased. In the dermis, there is basophilic degeneration of elastic fibers. Specimen C. SKIN, left upper chest: Sections show a relatively broad, flat proliferation of small keratinocytes. The surface is gently papillated, and there is increased basilar pigmentation. There is a lymphohistiocytic infiltrate within the dermis. 2 4:58 PM [facility] DERMATOPATHOLOGY LABORATORY Disclaimer An external and internal positive and negative controls are appropriate for the histochemical, immunohistochemical and immunofluorescence stain(s) in this case (if any), except where stated explicitly. The performance characteristics of the stain(s) cited in this report were developed and its performance characteristic determined by the Dermatopathology Laboratory at [facility], directed by Dr. Lesia Dumont. These tests need not be, and therefore are not, approved by the [place] Food and Drug Administration. The tests are used for clinical purposes. Billing Codes Specimen Charges Stain Charges 05807 [id number] 1 1 1 2 4:58 PM PRINCIPAL MILITARY ANALYST DERMATOPATHOLOGY LABORATORY Embedded Images 2 4:58 PM PRINCIPAL MILITARY ANALYST DERMATOPATHOLOGY LABORATORY Pathology/Cytology TISSUE SPECIMEN FROM SKIN / Unknown 10/05/2022 10/10/2022 12:12 PM PRINCIPAL MILITARY ANALYST Miscellaneous samples (specimen) TISSUE SPECIMEN FROM SKIN / Unknown 10/05/2022 10/10/2022 12:12 PM PRINCIPAL MILITARY ANALYST Miscellaneous samples (specimen) TISSUE SPECIMEN FROM SKIN / Unknown 10/05/2022 10/10/2022 12:12 PM PRINCIPAL MILITARY ANALYST Roberto Roy MD LAB - PATHOLOGY/CYTOLOGY ORD ERABLES Final Result DERMATOPATHOLOGY LABORATORY [facility] - Department of Dermatology [address], [address] [phone] documented in this encounter Visit Diagnoses Not on filedocumented in this encounter Care Teams Host/Hostess Head Relationship Specialty Start Date End Date Atilio Jj MD [address] [place] [address] PCP - General 05/20/15 06/25/24 Kendra Adrian MD [address] [place] [address] PCP - General Family Medicine 06/26/24 10/06/24 Unknown, Provider PCP - General 10/07/24 02/05/25 Enedina Valdes MD [address] [place] [address] [address] [place] [address] PCP - General Internal Medicine Geriatric Medicine 02/06/25 documented as of this encounter
--- OUTSIDE RECORDS SUMMARY | 2025-03-18 00:23 | XMS_ITS | Encounter Summary ---
Author Organization [facility] Address [facility] [place] [address] Care Team Providers Care Oil Tank Car Cleaner Name Role Phone Kendra Adrian MD Primary Care Provider [phone] Encounter Details Date Type Department Care Team (Late st Contact Info) Description 12/21/2015 Abstract [facility] CONVERSION [address] [place] [address] , Generic ConversionMD Social History Tobacco Use Types Packs/Day Years Used Date Smoking Tobacco: Never Assessed Comments Unknown Sex and Gender Information Value Date Recorded Sex Assigned at Not on file Legal Sex Female 4:51 PM CDT Gender Identity Female 02/15/2022 4:28 PM CDT Sexual Orientation Straight 04/01/2022 12 :15 PM CDT documented as of this encounter Plan of Treatment Not on file documented as of this encounter Visit Diagnoses Not on filedocumented in this encounter Care Teams Oil Tank Car Cleaner Relationship Specialty Start Date End Date Kendra Adrian MD [address] [place] [address] PCP - General FAMILY PRACTICE 02/16/22 documented as of this encounter
--- OUTSIDE RECORDS SUMMARY | 2025-03-18 00:23 | XMS_ITS | Referral Summary ---
Author Organization [facility] [address] [facility] Address [address] [place] [address] Care Team Providers Care Suggestion Clerk Name Role Phone Enedina Valdes MD Primary Care Provider [phone] Encounters Date Type Department Care Team Description 01/06/2025 3:15 PM ELECTRICIAN OFFICE Office Visit [facility] Medical Group Cardiology [address] [place] [address] Roverto Sosa MD Aortic valve stenosis, unspecified etiology (Primary Dx) from Last 3 Months Allergies Active Allergy Reactions Criticality Noted Date Comments Codeine Other (See comments) Low 03/06/2015 Patient feels jittery Medications fexofenadine HCl (MARTIN ORAL) 2 (two) times a day Active HYDROcodone-acetam inophen (NORCO) 5-325 mg per tablet 5-325 mg every 6 (six) hours Active acetaminophen (TYLENOL) 325 mg tablet 1 tablet (325 mg total) every 4 (four) hours Active atorvastatin (LIPITOR) 10 mg tablet 1 tablet (10 mg total) daily Active fluticasone furoate-vilanteroL (BREO ELLIPTA) 100-25 mcg/dose diskus inhaler daily Activ e losartan (COZAAR) 100 mg tablet 1 tablet (100 mg total) daily Active citalopram (CeleXA) 40 mg tablet 1 tablet (40 mg total) daily Active metFORMIN (GLUCOPHAGE) 500 mg tablet 1 tablet (500 mg total) daily Active montelukast (SINGULAIR) 10 mg tablet 1 tablet (10 mg total) daily Active mirabegron ER (MYRBETRIQ) 50 mg tablet extended release 24 hr 1 tablet (50 mg total) daily Active temazepam (RESTORIL) 30 mg capsule 1 capsule (30 mg total) daily Active aspirin 81 mg enteric coated tablet Take 1 tablet (81 mg total) by mouth daily Active meclizine (ANTIVERT) 25 mg tablet Take 1 tablet (25 mg total) by mouth daily Active sod bicarb-sod chlor-neti pot packet with rinse device by sinus irrigation route Active oxybutynin (DITROPAN) 5 mg tablet Take 1 tablet (5 mg total) by mouth 3 (three) times a day Active raNITIdine (ZANTAC) 150 mg tabletIndications: Laryngopharyngeal reflux (LPR) TAKE 2 TABLETS(300 MG) BY MOUTH EVERY NIGHT 60 tablet 3 11/18/19 20 Active Additional Information Patient not taking.Reported on 01/06/2025 triamcinolone (KENALOG) 0.1 % ointment 08/25/20 20 Active ondansetron ODT (ZOFRAN-ODT) 8 mg disintegrating tablet DIS 1 T ON THE TONGUE Q 8 H 07/02/20 20 Active nystatin cream nystatin 100,000 unit/gram topical cream Active cetirizine HCl (ZYRTEC ORAL) Take by mouth Ac tive cilostazoL (PLETAL) 100 mg tablet Take 100 mg by mouth 2 (two) times a day 06/14/20 22 Active fish oil-dha-epa 1,200-144-216 mg capsule Take by mouth Active albuterol (PROAIR RESPICLICK) 90 mcg/actuation inhaler Inhale 2 puffs every 6 (six) hours as needed for wheezing Active Trulicity 0.75 mg/0.5 mL pen injector ADMINISTER 0.75 MG UNDER THE SKIN WEEKLY 12/11/19 24 Active mirtazapine (REMERON) 15 mg tablet Take 1 tablet (15 mg total) by mouth nightly at bedtime Active Active Problems Problem Noted Date Diagnosed Date Aortic valve stenosis, unspecified etiology 07/14 Morbid obesity with BMI of 45.0-49.9, adult 12/2018 Diabetes mellitus type II, non insulin dependent 03/14/2019 Essential hypertension 03/14/2019 Sinus bradycardia 03/14/2019 Social History Tobacco Use Types Packs/Day Years Used Date Smoking Tobacco: Former Cigarettes Smokeless Tobacco: Never Tobacco Cessation:Counseling Given: Not Answered Alcohol Use Standard Drinks/Week Comments Not Currently 0 (1 standard drink = 0.6 oz pur e alcohol) Comments Unknown Sex and Gender Information Value Date Recorded Sex Assigned at Not on file Legal Sex Female 1:41 PM ELECTRICIAN OFFICE Gender Identity Not on file Sexual Orientation Not on file Last Filed Vital Signs Vital Sign Reading Time Taken Comments Blood Pressure 134/76 01/06/2025 3:15 PM ELECTRICIAN OFFICE Pulse 50 01/06/2025 3:15 PM ELECTRICIAN OFFICE Temperature 36.1 C (96.9 F) 09/09/2020 2:54 PM CDT Respiratory Rate 16 09/09/2020 2:54 PM CDT Oxygen Saturation 96% 01/06/2025 3:15 PM ELECTRICIAN OFFICE Inhaled Oxygen Concentration - - Weight 108.4 kg (239 lb) 01/06/2025 3:15 PM ELECTRICIAN OFFICE Height 154.9 cm (5' 1 ) 01/06/2025 3:15 PM ELECTRICIAN OFFICE Body Mass Index 45.16 01/06/2025 3:15 PM ELECTRICIAN OFFICE Plan of Treatment Not on file Insurance MEDICARE [facility] MEDICARE [facility] [place] [address] Advance Directives For more information, please contact: [phone] Documents on File Type Date Recorded Patient Sewer Expl anation ADVANCE DIRECTIVE 06/25/2018 12:00 AM DONTAE CUEVAS [facility] Care Teams Suggestion Clerk Relationship Specialty Start Date End Date Enedina Valdes MD [address] [address] PCP - General Geriatric Medicine 01/06/25
--- OUTSIDE RECORDS SUMMARY | 2025-03-18 00:23 | XMS_ITS | Clinical Summary ---
Author Organization [facility] [place] [facility] [address] [facility] tt Address [address] [facility] [place] [address] Care Team Providers Care Civil Engineer Name Role Phone Enedina Valdes MD Primary Care Provider [phone] Allergies Active Allergy Reactions Criticality Noted Date [...] MOUTH EVERY NIGHT 60 tablet 3 11/18/19 Active Additional Information Patient not taking.Reported on 01/06/2025 triamcinolone (KENALOG) 0.1 % ointment 08/25/20 Active ondansetron ODT (ZOFRAN-ODT) 8 mg disintegrating tablet DIS 1 T ON THE TONGUE Q 8 H 07/02/20 Active nystatin cream nystatin 100,000 unit/gram topical cream Active cetirizine HCl (ZYRTEC ORAL) Take by mouth Ac tive cilostazoL (PLETAL) 100 mg tablet Take 100 mg by mouth 2 (two) times a day 06/14/20 Active fish oil-dha-epa 1,200-144-216 mg capsule Take by mouth Active albuterol (PROAIR RESPICLICK) 90 mcg/actuation inhaler Inhale 2 puffs every 6 (six) hours as needed for wheezing Active Trulicity 0.75 mg/0.5 mL pen injector ADMINISTER 0.75 MG UNDER THE SKIN WEEKLY 12/11/19 Active mirtazapine (REMERON) 15 mg tablet Take 1 tablet (15 mg total) by mouth nightly at bedtime Active Active Problems Problem Noted Date Diagnosed Date Aortic valve stenosis, unspecified etiology 07/14 Morbid obesity with BMI of 45.0-49.9, adult 12/2018 Diabetes mellitus type II, non insulin dependent 03/14/2019 Essential hypertension 03/14/2019 Sinus bradycardia 03/14/2019 Encounters Date Type Department Care Team Description 01/06/2025 3:15 PM HAIRSPRING VIBRATOR Office Visit [facility] Cardiology [address] [place] [address] Roverto Sosa MD Aortic valve stenosis, unspecified etiology (Primary Dx) from Last 3 Months Surgical History Surgery Date Site/Laterality Comments REPLACEMENT TOTAL KNEE APPENDECTOMY COLONOSCOPY REPLACEMENT TOTAL KNEE BILATERAL APPENDECTOMY HERNIA REPAIR 06/26/2019 COLONOSCOPY Medical History Medical History Date Comments Sleep apnea Diabetes (HCC) Asthma Family History Relation Name Status Comments Brother 2 Alive Father Mother Son 1 Alive Social History Tobacco Use Types Packs/Day Years Used Date Smoking Tobacco: Former Cigarettes Smokeless Tobacco: Never Tobacco Cessation:Counseling Given: Not Answered Alcohol Use Standard Drinks/Week Comments Not Currently 0 (1 standard drink = 0.6 oz pur e alcohol) Comments Unknown Sex and Gender Information Value Date Recorded Sex Assigned at Not on file Legal Sex Female 1:41 PM HAIRSPRING VIBRATOR Gender Identity Not on file Sexual Orientation Not on file Obstetrics History Last Filed Vital Signs Vital Sign Reading Time Taken Comments Blood Pressure 134/76 01/06/2025 3:15 PM HAIRSPRING VIBRATOR Pulse 50 01/06/2025 3:15 PM HAIRSPRING VIBRATOR Temperature 36.1 C (96.9 F) 09/09/2020 2:54 PM CDT Respiratory Rate 16 09/09/2020 2:54 PM CDT Oxygen Saturation 96% 01/06/2025 3:15 PM HAIRSPRING VIBRATOR Inhaled Oxygen Concentration - - Weight 108.4 kg (239 lb) 01/06/2025 3:15 PM HAIRSPRING VIBRATOR Height 154.9 cm (5' 1 ) 01/06/2025 3:15 PM HAIRSPRING VIBRATOR Body Mass Index 45.16 01/06/2025 3:15 PM HAIRSPRING VIBRATOR Plan of Treatment Health Maintenance Due Date Last Done Comments Albumin Creatinine Ratio, Urine 1940 Depression Screening 1940 Fall Risk Assessment 1940 Hemoglobin A1C 1940 eGFR 1940 Dilated Eye Exam 1940 Foot Exam 1940 Lipid Panel 1940 Hepatitis B Screening 1958 Well Visit 65+ 2005 Influenza Vaccine (#1) 2024 , 09/02/2019, 08/21/2018, Additional history exists Osteoporosis Screening-Bone Density Scan 10/08/2026 10/08/2024, 10/08/2024 DTaP/Tdap/Td Vaccine (2 - Td or Tdap) 08/25/2031 08/25/2021 Pneumococcal vaccine 65+ Completed 09/28/2017, 08/14 Zoster Vaccine Completed 10/08/2022, 11/14, 09/09/2016, Additional history exists Insurance MEDICARE [facility] MEDICARE [facility] Advance Directives For more information, please contact: [phone] Documents on File Type Date Recorded Patient Front Office Supervisor Expl anation ADVANCE DIRECTIVE 06/25/2018 12:00 AM DONTAE CUEVAS WILL Care Teams Civil Engineer Relationship Specialty Start Date End Date Enedina Valdes MD [address] [address] PCP - General Geriatric Medicine 01/06/25
--- NOTE | 2025-03-18 11:23 | PM.HPGS ---
History of Present Illness History of Present Illness Consent: Risks, benefits, and alternatives have been discussed and questions answered. Patient agrees to proceed with procedure. Chief complaint: spondylosis w/myelopathy or radiculopathy cervical Narrative: Sonal Burleson is a 84 year old female with chronic, recalcitrant and disabling left cervicalgia secondary to degenerative spondylosis with failure to respond to aggressive conservative measures including PT, oral and topical analgesics, opioid and nonopioid analgesics, rest, time and activity/behavioral modification over the past 1-2 years who presents for thermal radiofrequency ablation of the left C3, C4, C5 medial branches addressing the left C3-4, C4-5 facet joints under fluoroscopic guidance. Review of Systems Review of Systems: Patient denies any new infectious, allergic, cardiopulmonary, neurologic or constitutional symptoms or changes in activity tolerance or exercise capacity including new or progressive SOB/SWAN, peripheral edema, productive cough, dysuria, nausea/vomiting, diarrhea, weight change, fevers/chills/night sweats, new or progressive neurologic deficit, cognitive or mood changes since last seen, except as documented in the HPI. All systems reviewed & are unremarkable except as noted in HPI and below PMFSH Past Medical History Medical History (Reviewed 02/24/25 @ 10:59 by Misa Montoya, [facility]) Vitreous abscess Pneumonia (~05/14/23) Aortic valve sclerosis Allergic rhinitis Anxiety Benign hypertension Benign paroxysmal positional vertigo, bilateral Chronic obstructive pulmonary disease Cough due to JAMILA inhibitor Depressive disorder, not elsewhere classified DAQUAN (generalized anxiety disorder) Hearing loss Insomnia Obstructive sleep apnea Migraine SOB (shortness of breath) Tobacco abuse She smoked about 5 cigs/day for about 40 years but was also exposed to second hand smoke from her and parents. No longer smoking, quit 2012. Type 2 diabetes mellitus without complication, without long-term current use of insulin Umbilical hernia without obstruction or gangrene Unsteady gait Ventral hernia without obstruction or gangrene Vertigo GERD (gastroesophageal reflux disease) Hypertension Hypercholesterolemia Asthma Surgical History Surgical History (Reviewed 02/24/25 @ 10:59 by Misa Montoya [facility]) History of nasal surgery (~06/19/18) History of total right hip arthroplasty (~03/02/23) History of eye surgery History of hernia repair (~06/26/18) History of total bilateral knee replacement (TKR) (~12/27/14) History of appendectomy (~02/16/1951) History of splenectomy (~1950) Family History Family History (Reviewed 02/24/25 @ 10:59 by Misa Montoya [facility]) Sibling Family history of elevated blood lipids Family history of malignant neoplasm Family history of coronary artery disease Family history of premature coronary heart disease Family history of cardiovascular disease Family history of heart disease in male family member before age 55 Father Family history of heart disease in male family member before age 55 Family history of cardiovascular disease Family history of coronary artery disease, Onset Age: 44 Mother Family history of heart disease in male family member before age 55 Family history of coronary artery disease Acute myocardial infarction Grandparent Diabetes mellitus Other Family history of arthritis Hypertension Social History Social History (Reviewed 02/24/25 @ 10:59 by Misa Montoya [facility]) Social History: 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 She has 1 son. The daughter in all helps with her care. She is and lives home alone. Code status full code Smoking packs per day: 0.25 Smoking cigarettes per day: 5.0 Years smoked: 40 Smoking pack-years: 10.00 Smoking status: Former smoker Tobacco type: cigarettes Second hand tobacco smoke exposure: No Smoking end date: 11/13/09 Additional smoking assessment comments: DENIES ANY FORM OF TOBACCO USE Alcohol intake: never Substance use: never Substance use type: does not use Do You Feel Safe in your Home?: Yes Lack of Transportation: No Lack of Food: Never True Current Housing: I Have Housing Concerned About Future Housing: No Difficulty Paying Gas/Electric Bills: No Difficulty Paying for Meds: No Currently Unemployed: No Education: High School Diploma/GED Difficulty w/ Childcare or Family Care: No Living arrangements: alone Occupation/Education: retired Gender identity (if verbalized by the patient): Female Sexual Orientation (if Verbalized by the Patient): Straight or Heterosexual Spiritual care concerns: No Agree to blood products: Yes Meds Home Medications and Allergies Home Medications ?Medication ?Instructions ?Recorded ?Confirmed ?Type mirabegron 50 mg tablet,extended 50 mg PO DAILY 12/29/19 03/03/25 History release 24 hr (Myrbetriq) fexofenadine 180 mg tablet 180 mg PO DAILY 04/20/23 03/03/25 History (Diana Allergy) losartan 50 mg tablet 25 mg PO DAILY 03/22/24 03/03/25 History montelukast 10 mg tablet 10 mg PO QHS #30 tabs 09/06/24 03/03/25 Rx eszopiclone 1 mg tablet (Lunesta) 1 mg PO QHS #30 tabs 11/25/24 03/03/25 Rx mirtazapine 15 mg tablet 15 mg PO QHS #30 tabs 11/29/24 03/03/25 Rx atorvastatin 10 mg tablet 10 mg PO DAILY #90 tabs 01/01/25 03/03/25 Rx citalopram 40 mg tablet 20 mg PO DAILY 01/27/25 03/03/25 History meclizine 25 mg tablet 25 mg PO TID PRN Dizziness #90 tabs 01/28/25 03/03/25 Rx Prevagen 1 unit PO DAILY 02/24/25 03/03/25 History albuterol sulfate 90 mcg/actuation 2 puff inhalation Q6-8H PRN 03/03/25 03/03/25 History aerosol inhaler shortness of breath or wheezing tiotropium bromide 1.25 2 puff inhalation Q24H 03/03/25 03/03/25 History mcg/actuation mist for inhalation (Spiriva Respimat) fluticasone furoate 200 See Rx Instructions .Route 03/06/25 Rx mcg-vilanterol 25 mcg/dose .COMPLEX #60 ea inhalation powder (Breo Ellipta) Allergies Allergy/AdvReac Type Severity Reaction Status Date / Time codeine AdvReac Mild MAKES ME Verified 03/03/25 15:12 REALLY JUMPY Exam Narrative: The patient's physical exam is essentially unchanged from prior examination on 01/27/2025. Specifically, patient demonstrates normal lung capacity, tidal volume and respiratory rate without wheezes, crackles, rales or rubs. Heart rate and rhythm are regular without murmurs, gallops or rubs. No JVD. Pulses 2+ globally without increasing peripheral edema. AAOx3 with no evidence of confusion, intoxication or altered mental state, NC/AT without acute distress or altered consciousness. Speech, cognition, mood, insight and judgment at baseline and within normal limits. Assessment and Plan Assessment and plan (1) Cervical spondylosis: Code(s): M47.812 - Spondylosis without myelopathy or radiculopathy, cervical region Status: Acute Assessment and Plan: Proceed as planned with thermal radiofrequency ablation of the left C3, C4, C5 medial branches addressing the left C3-4, C4-5 facet joints under fluoroscopic guidance. (2) Cervicalgia: Code(s): M54.2 - Cervicalgia Status: Acute
--- NOTE | 2025-03-18 11:26 | WPDHPUPDATE1 ---
History and Physical Update Update Date/Time: 03/18/25 11:26 History and Physical has been reviewed, including an updated exam of the patient. There are NO changes in the patient's condition. Risks, benefits, and alternatives have been discussed and questions answered. Patient agrees to proceed with procedure.
--- NOTE | 2025-03-18 11:27 | P.OP_ITS ---
Procedure Note - Detailed Date of Procedure 03/18/25 Pre-op Diagnosis spondylosis w/myelopathy or radiculopathy cervical Post-op Diagnosis Same Procedure Performed Thermal Radiofrequency Ablation of the left Cervical Medial Branches at C3, C4, C5 to ablate the Ipsilateral C3-4, C4-5 facet joints under Fluoroscopic Guidance (2 levels treated). Surgeon Armando Tillman MD Jewel Bearing Grinder None. Anesthesia Local (w/ IV Moderate Sedation) Description of Procedure INFORMED CONSENT: Risks, benefits and alternatives to the procedure were discussed in detail with the patient who expressed explicit understanding and consent to proceed. Patient was informed verbally and in written form regarding the risks associated with the procedure including the low risk of serious infection, bleeding/bruising, allergic reaction, nerve or organ injury, paralysis, procedural site pain or discomfort, worsening pain and/or mobility, failure to treat and/or disfigurement. The patient expressed explicit understanding and consent to proceed. All materials required for the procedure were available prior to procedure start. Site and side was marked prior to procedure and confirmed in the presence of the patient. PROCEDURE IN DETAIL: The patient was brought to the procedural suite and placed in the prone position with head stabilized with a horseshoe pillow and cervical ramp. Patient was made comfortable with use of pillows under the head/chest, hips and ankles. Skin overlying the injection site on the affected side(s) was prepared broadly with 10mL tinted ChloraPrep applicator and draped in a sterile manner. Strict aseptic technique was utilized throughout. The endplates of the vertebral bodies at the site(s) of interest were aligned in the AP view. Ipsilateral oblique angulation was utilized to optimize visualization of the pars interarticularis at each target site. Local anesthesia was established by infiltration with approximately 5 mL of 1% lidocaine via a 1-1/2 inch 27-gauge needle. An 18-gauge 100mm RF needle with curved 10mm active tip was advanced in the AP view until the needle tip contacted the periosteum of the pars interarticularis at the target site, left C3 parallel to the course of the targeted peripheral nerve branch. Lateral view was utilized to adjust and confirm the appropriate placement of the needle tip just anterior to the center point of the interarticularis, bisecting the distance between adjacent joint spaces. The appropriately-sized RF cannula was inserted into the RF needle and motor stimulation performed with no subjective or objective evidence of recruited muscle activity with stimulation up to 2.0 volts at a frequency of 2Hz. A 1.5 mL solution of 2.0% PF lidocaine was injected via the appropriately positioned RF cannula after negative aspiration. The grounding electrode was confirmed to be in place with good contact and functioning appropriately. After a 90s pause, lesioning was performed to 90 degrees centigrade for 90s ensuring lack of symptoms in the extremity throughout. Needle was withdrawn approximately 1-2 mm and rotated 180 degrees at each level. Lesioning was then repeated in a similar manner as above. The patient tolerated this well. No parasthesias were elicited. Needle was removed completely intact without difficulty. The same procedure was then repeated for all intended levels/ structures on the ipsilateral side, left C3, C4, with identical methodology, modified to compensate for new location, with similar results and no evidence of complication. Images were saved and documented in the patient's chart. The patient's skin was cleaned and sterile bandages applied. The patient tolerated the procedure well. The patient was transported to the recovery area in stable condition where they were observed for an appropriate amount of time prior to discharge, without evidence of complication. The patient was instructed to avoid excessive activity for the next 48 hours, including overhead work, reaching and device/computer usage. Showers only for 48 hours. They were instructed not to drive or operate heavy machinery for 24 hours. They are to monitor for severe headaches, fevers, chills, night sweats, erythema/swelling at the site or any other signs of infection, bleeding/ bruising, bowel or bladder changes as well as new pain, weakness or numbness in the upper or lower extremity. Should they notice these changes, they are instructed to call our office immediately or report directly to the nearest Emergency Department if no answer or if after posted office hours. Complications None Condition Stable Disposition PACU [facility] Billing Surgery - Charge Forward: Surgery Billing
[2025-03-18 12:30] VITALS: BP 152/65; PULSE 67; RESP 14; TEMP 36.6; O2SAT 95
[2025-03-18] MEDS: LACTATED RINGERS 1,000 ML 30 ML IV CONT (12:30)
[2025-03-18 12:36] LABS: Glucose Point of Care 99 mg/dl (65-105)
--- NOTE | 2025-03-18 12:54 | P.PNAN_ITS ---
Anes - Initial Pre Proc Eval Procedure: Operation Date: 03/18/25 13:45 Proposed Procedures p Thermal Radio Frequency Ablation Left C3, C4, C5 Medial Branches Addressing Left C3-4, C4-5 Facet Joints Under Fluoroscopic Guidance - Armando Tillman MD Date/Time: 03/18/25 12:54 Surgeon: Armando Tillman MD Pre Op Diagnosis: spondylosis w/myelopathy or radiculopathy cervical Patient Data Age: 84 Gender: F Height: 1.55 m Weight: 106 kg Allergies Allergy/AdvReac Type Severity Reaction Status Date / Time codeine AdvReac Mild MAKES ME Verified 03/03/25 15:12 REALLY JUMPY Home Medications ?Medication ?Instructions ?Recorded ?Confirmed ?Type mirabegron 50 mg tablet,extended 50 mg PO DAILY 12/29/19 03/03/25 History release 24 hr (Myrbetriq) fexofenadine 180 mg tablet 180 mg PO DAILY 04/20/23 03/03/25 History (Diana Allergy) losartan 50 mg tablet 25 mg PO DAILY 03/22/24 03/03/25 History montelukast 10 mg tablet 10 mg PO QHS #30 tabs 09/06/24 03/03/25 Rx eszopiclone 1 mg tablet (Lunesta) 1 mg PO QHS #30 tabs 11/25/24 03/03/25 Rx mirtazapine 15 mg tablet 15 mg PO QHS #30 tabs 11/29/24 03/03/25 Rx atorvastatin 10 mg tablet 10 mg PO DAILY #90 tabs 01/01/25 03/03/25 Rx citalopram 40 mg tablet 20 mg PO DAILY 01/27/25 03/03/25 History meclizine 25 mg tablet 25 mg PO TID PRN Dizziness #90 tabs 01/28/25 03/03/25 Rx Prevagen 1 unit PO DAILY 02/24/25 03/03/25 History albuterol sulfate 90 mcg/actuation 2 puff inhalation Q6-8H PRN 03/03/25 03/03/25 History aerosol inhaler shortness of breath or wheezing tiotropium bromide 1.25 2 puff inhalation Q24H 03/03/25 03/03/25 History mcg/actuation mist for inhalation (Spiriva Respimat) fluticasone furoate 200 See Rx Instructions .Route 03/06/25 Rx mcg-vilanterol 25 mcg/dose .COMPLEX #60 ea inhalation powder (Breo Ellipta) Laboratory Tests 03/18/25 12:33 POC Capillary Glucose 99 mg/dl (65-105) Patient hx anesthesia problems: none Family hx anesthesia problems: none Results Review: All pre-operative results and documents have been reviewed as part of the pre- operative evaluation. [facility] Past Medical History Medical History Vitreous abscess Pneumonia (~05/14/23) Aortic valve sclerosis Allergic rhinitis Anxiety Benign hypertension Benign paroxysmal positional vertigo, bilateral Chronic obstructive pulmonary disease Cough due to JAMILA inhibitor Depressive disorder, not elsewhere classified DAQUAN (generalized anxiety disorder) Hearing loss Insomnia Obstructive sleep apnea Migraine SOB (shortness of breath) Tobacco abuse She smoked about 5 cigs/day for about 40 years but was also exposed to second hand smoke from her and parents. No longer smoking, quit 2012. Type 2 diabetes mellitus without complication, without long-term current use of insulin Umbilical hernia without obstruction or gangrene Unsteady gait Ventral hernia without obstruction or gangrene Vertigo GERD (gastroesophageal reflux disease) Hypertension Hypercholesterolemia Asthma Surgical History Surgical History History of nasal surgery (~06/19/18) History of total right hip arthroplasty (~03/02/23) History of eye surgery History of hernia repair (~06/26/18) History of total bilateral knee replacement (TKR) (~12/27/14) History of appendectomy (~02/16/1951) History of splenectomy (~1950) Family History Family History Sibling Family history of elevated blood lipids Family history of malignant neoplasm Family history of coronary artery disease Family history of premature coronary heart disease Family history of cardiovascular disease Family history of heart disease in male family member before age 55 Father Family history of heart disease in male family member before age 55 Family history of cardiovascular disease Family history of coronary artery disease, Onset Age: 44 Mother Family history of heart disease in male family member before age 55 Family history of coronary artery disease Acute myocardial infarction Grandparent Diabetes mellitus Other Family history of arthritis Hypertension Social History Social History Social History: 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 She has 1 son. The daughter in all helps with her care. She is and lives home alone. Code status full code Smoking packs per day: 0.25 Smoking cigarettes per day: 5.0 Years smoked: 40 Smoking pack-years: 10.00 Smoking status: Former smoker Tobacco type: cigarettes Second hand tobacco smoke exposure: No Smoking end date: 11/13/09 Additional smoking assessment comments: DENIES ANY FORM OF TOBACCO USE Alcohol intake: never Substance use: never Substance use type: does not use Do You Feel Safe in your Home?: Yes Lack of Transportation: No Lack of Food: Never True Current Housing: I Have Housing Concerned About Future Housing: No Difficulty Paying Gas/Electric Bills: No Difficulty Paying for Meds: No Currently Unemployed: No Education: High School Diploma/GED Difficulty w/ Childcare or Family Care: No Living arrangements: alone Occupation/Education: retired Gender identity (if verbalized by the patient): Female Sexual Orientation (if Verbalized by the Patient): Straight or Heterosexual Spiritual care concerns: No Agree to blood products: Yes Anes - Eval Final PreProcedure Day of Procedure 03/18/25 12:54 Patient weight: morbidly obese Lungs: normal air movement Airway: Mallampati scale class II and special considerations (Missing many teeth in the post aspect. ) Neurological: alert and oriented Last oral intake: >/= 8 hours ASA classification: III Emergent: no Anesthetic plan: proceed Anesthesia type and monitoring: general GIVS and standard monitoring Results Review: All pre-operative results and documents have been reviewed as part of the pre- operative evaluation. Multiple comorbid conditions noted, [place] on CPAP, hyperlipidemia, HTN, asthma, stable of recent. Informed Consent: The patient's anesthetic plan and its attendant risks and benefits were discussed with the patient/family/POA. Questions were solicited and answers provided to the satisfaction of the patient/family/POA.
[2025-03-18] MEDS: ceFAZolin 2 GM/D5W 50 ML 2 GM/50 ML BAG IVPB (12:56)
[2025-03-18] MEDS: BUPivacaine HCL 0.5% 10 ML AMP 5 ML INFILTRATE (13:13)
[2025-03-18] MEDS: LIDOCAINE 2% PF LOCAL INJ 5 ML VIAL INFILTRATE (13:13)
[2025-03-18 13:31] VITALS: BP 144/84; PULSE 67; RESP 18; O2SAT 94
[2025-03-18 13:37] LABS: Glucose Point of Care 110 mg/dl (65-105)
[2025-03-18 14:00] VITALS: BP 131/77; PULSE 66; RESP 16
[2025-03-18 14:30] VITALS: BP 132/76; PULSE 68; RESP 16
== END 2025-03-18 14:39 | disposition home or self-care (01) ==
PROVIDERS: Visit Provider Anesthesiology Pain Medicine
PROC: (CPT 64633; principal; 2025-03-18 13:45)
DX: M47.812 Spondylosis without myelopathy or radiculopathy, cervical region (principal); E11.9 Type 2 diabetes mellitus without complications; Z87.891 Personal history of nicotine dependence
CPT/HCPCS: 64633; 64634; 82948; 99199; J0690; J2003; J2250; J2704; J3010; J7120

== ENCOUNTER 2025-04-22 08:20 | Day surgery (SDC) | payer MEDICARE, OTHER, SELFPAY ==
[2025-04-15 13:12] VITALS: BMI 45.3
--- NOTE | ~2025-04-22 | XR_ITS ---
XR fluoroscopy no charge Indication: Right C3, C4 and C5 medial branch block TECHNIQUE: Fluoroscopy used during Right C3, C4 and C5 medial branch block performed by [Armando Tillman MD] on 04/22/2025. 73 seconds of fluoroscopy with 6 fluoroscopic images captured. FINDINGS: Correlate with procedure note. IMPRESSION: Fluoroscopy used during Right C3, C4 and C5 medial branch block. Reviewed, dictated and finalized at location []
--- NOTE | 2025-04-22 06:47 | WPDHPUPDATE1 ---
History and Physical Update Update Date/Time: 04/22/25 06:47 History and Physical has been reviewed, including an updated exam of the patient. There are NO changes in the patient's condition. Risks, benefits, and alternatives have been discussed and questions answered. Patient agrees to proceed with procedure.
--- NOTE | 2025-04-22 06:48 | P.OP_ITS ---
Procedure Note - Detailed Date of Procedure 04/22/25 Pre-op Diagnosis Spondylosis w/o Myelopathy/Radiculopathy Post-op Diagnosis Same Procedure Performed Diagnostic Right Cervical Medial Branch Nerve Blocks at C3, C4, C5 Blocking the Ipsilateral C3-4, C4-5 facet joints under Fluoroscopic Guidance and with Contrast Control (2 levels blocked). Surgeon Armando Tillman MD Hospice Massage Therapist None. Anesthesia Local Description of Procedure INFORMED CONSENT: Risks, benefits and alternatives to the procedure were discussed in detail with the patient who expressed explicit understanding and consent to proceed. Patient was informed verbally and in written form regarding the risks associated with the procedure including the low risk of serious infection, bleeding/bruising, allergic reaction, nerve or organ injury, paralysis, procedural site pain or discomfort, worsening pain and/or mobility, failure to treat and/or disfigurement. The patient expressed explicit understanding and consent to proceed. All materials required for the procedure were available prior to procedure start. Site and side were marked prior to procedure and confirmed in the presence of the patient. PROCEDURE IN DETAIL: The patient was brought to the procedural suite and placed in the prone position with head stabilized with a ProneView pillow. Patient was made comfortable with use of pillows under the head/chest, hips and ankles. Skin overlying the injection site on the affected side(s) was prepared broadly with ChloraPrep applicator and draped in a sterile manner. Aseptic technique was used throughout. The endplates of the vertebral bodies at the site(s) of interest we re aligned in the AP view. Ipsilateral oblique angulation was utilized to optimize visualization of the pars interarticularis at each target site. Local anesthesia was established by infiltration with approximately 5 mL of 0.5% lidocaine via a 1-1/2 inch 27-gauge needle divided over each injection site. A 25-gauge 3.5 inch Quincke spinal needle was advanced until the needle tip contacted the periosteum of the pars interarticularis at the target site, right C3 medial branch. Lateral view was utilized to confirm the appropriate placement of the needle tip just anterior to the center point of the interarticularis. In the Lateral view, 0.25 mL of Omnipaque 300 contrast medium was injected after negative aspiration for CSF, blood or other bodily fluid, showing appropriate extra-articular spread of contrast without evidence of intravascular, foraminal or intrathecal placement. A 0.25 mL solution of 0.5% PF bupivacaine was injected after negative repeat aspiration. Appropriate spread of the injectate was confirmed with washout of previously injected contrast. No parasthesias were elicited. Needle was removed completely intact without difficulty. The same exact procedure was repeated for all remaining levels on the ipsilateral side, right C4, C5 medial branches, modified as necessary to accommodate for the new target location with identical findings and results and no evidence of complication. Images were saved and documented in the patient chart. Patient's skin was cleansed and sterile bandage applied. The patient tolerated the procedure well. The patient was transported to the recovery area in stable condition where they were observed for an appropriate amount of time prior to discharge, without evidence of complication. Patient was instructed on the appropriate completion of a pain diary over the next 12-24 hours. The patient was instructed to avoid excessive activity for the next 48 hours, including climbing and frequent use of stairs. Showers only for 48 hours. They were instructed not to drive or operate heavy machinery for 24 hours. They are to monitor for severe headaches, fevers, chills, night sweats, erythema/swelling at the site or any other signs of infection, bleeding/bruising, bowel or bladder changes as well as new pain, weakness or numbness in the upper or lower extremity. Should they notice these changes, they are instructed to call our office immediately or report directly to the nearest Emergency Department if no answer or if after posted office hours. COMPLICATIONS: None COMMENTS: None CONTRAST WASTED: 28.5mL Omnipaque 300. Complications No immediate complications Condition Stable Disposition Same day [facility] Billing Surgery - Charge Forward: Surgery Billing
--- OUTSIDE RECORDS SUMMARY | 2025-04-22 08:49 | XMS_ITS | Encounter Summary ---
Author Organization [facility] Care Team Providers Care Environmental Emergencies Assistant Name Role Phone Atilio Jj MD Primary Care Provider [phone] Siomara Dudley MD Primary Care Provider [phone] Enedina Valdes MD Primary Care Provider [phone] Encounter Details Date Type Department Care Team (Latest Contact Info) Description 06/07/2018 Orders Only [facility]INCON[facility] ProviderSujey MD [address] [place] [address] Social History Tobacco Use Types Packs/Day Years Used Date Smoking Tobacco: Never Assessed Comments Unknown Sex and Gender Information Value Date Recorded Sex Assigned at Not on file 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 Gender Identity Not on file Sexual Orientation [...] on filedocumented in this encounter Care Teams Environmental Emergencies Assistant Relationship Specialty Start Date End Date Atilio Jj MD [address] [facility] [address] [place], [place] [id number] PCP - General Internal Medicine 02/06/19 03/13/19 Siomara Dudley MD [address] [facility] [address] [facility] [address] [place] [address] PCP - General Family Practice 03/14/19 01/05/25 Enedina Valdes MD [address] [address] PCP - General Geriatric Medicine 01/06/25 documented as of this encounter
--- OUTSIDE RECORDS SUMMARY | 2025-04-22 08:50 | XMS_ITS | Clinical Summary ---
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 Gender Identity Not on file Sexual Orientation Not on file Obstetrics History Last Filed Vital Signs Vital Sign Reading Time Taken Comments Blood Pressure 134/76 01/06/2025 3:15 PM ACCOUNTS EXECUTIVE Pulse 50 01/06/2025 3:15 PM ACCOUNTS EXECUTIVE Temperature 36.1 C (96.9 F) 09/09/2020 2:54 PM CDT Respiratory Rate 16 09/09/2020 2:54 PM CDT Oxygen Saturation 96% 01/06/2025 3:15 PM ACCOUNTS EXECUTIVE Inhaled Oxygen Concentration - - Weight 108.4 kg (239 lb) 01/06/2025 3:15 PM ACCOUNTS EXECUTIVE Height 154.9 cm (5' 1) 01/06/2025 3:15 PM ACCOUNTS EXECUTIVE Body Mass Index 45.16 01/06/2025 3:15 PM ACCOUNTS EXECUTIVE Plan of Treatment Health Maintenance Due Date Last Done Comments Albumin Creatinine Ratio, Urine 1940 Depression Screening 1940 Fall Risk Assessment 1940 Hemoglobin A1C 1940 eGFR 1940 Dilated Eye Exam 1940 Foot Exam 1940 Lipid Panel 1940 Hepatitis B Screening 1958 Well Visit 65+ 2005 Influenza Vaccine (Season Ended) 2025 08/01/2020, 09/02/2019, 08/21/2018, Additional history exists Osteoporosis Screening-Bone Density Scan 10/08/2026 10/08/2024, 10/08/2024 DTaP/Tdap/Td Vaccine (2 - Td or Tdap) 08/25/2031 08/25/2021 Pneumococcal vaccine 65+ Completed 09/28/2017, 08/14 Zoster Vaccine Completed 10/08/2022, 11/14, 09/09/2016, Additional history exists Insurance [place] [employer] [place] Advance Directives For more information, please contact: [phone] Documents on File Type Date Recorded Patient Emt Intermediate Expl anation ADVANCE DIRECTIVE 06/25/2018 12:00 AM DONTAE CUEVAS WILL Care Teams Business Instructor Relationship Specialty Start Date End Date Enedina Valdes MD [address] [address] PCP - General Geriatric Medicine 01/06/25
--- OUTSIDE RECORDS SUMMARY | 2025-04-22 08:50 | XMS_ITS | Encounter Summary ---
Author Organization [facility] Address [address] [facility] [place] [address] Care Team Providers Care Sawmill Moulder Operator Name Role Phone Atilio Jj MD Primary Care Provider [phone] Kendra Adrian MD Primary Care Provider [phone] Unknown, Provider Primary Care Provider Enedina Isaac MD Primary Care Provider [phone] Encounter Details Date Type Department Care Team (Late Contact Info) Description 10/10/2022 Lab Requisition [facility] Care DermPath Lab [address] [facility] [place] [address] Roberto Roy [place] [address] Social History Tobacco Use Types Packs/Day Years Used Date Smoking Tobacco: Every Day Cigarettes Smokeless Tobacco: Never Alcohol Use Standard Drinks/Week Comments Yes 0 (1 standard drink = 0.6 oz pur e alcohol) Comments Unknown Sex and Gender Information Value Date Recorded Sex Assigned at Not on file Legal Sex Female 5:25 PM FAMILY SERVICE AIDE Gender Identity Not on file Sexual Orientation Not on file documented as of this encounter Plan of Treatment Upcoming Encounters Date Type Department Care Team (Late Contact Info) Description 05/06/2025 1:10 PM CDT Office Visit [facility] - Dermatology [address] [place] [address] Melanie Williamson MD [address] [place], [place] [address] [id number] 05/28/2025 10:30 AM CDT Office Visit [facility] Physician [facility] Geriatric[facility] [address] [place] [address], [place] [phone] Enedina Valdes MD [address] [place] [address] documented as of this encounter Procedures Procedure Name Priority Date/Time Associated Diagnosis Comments DERMATOPATHOLOGY Routine 10/05/2022 12:0 0 AM FAMILY SERVICE AIDE documented in this encounter Results * DERMATOPATHOLOGY (10/05/2022 12:00 AM FAMILY SERVICE AIDE) Case Report Dermatopathology Report Case: [id number] Authorizing Provider: Roberto Roy MD Collected: 10/05/2022 12:00 AM Ordering Location: [facility] DermPath Lab Received: 10/10/2022 12:12 PM Pathologist: Mariela Dumont MD Specimens: A) - Skin, top left ear B) - Skin, left side neck behind jawline C) - Skin, left upper chest 2 4:58 PM FAMILY SERVICE AIDE DERMATOPATHOLOGY LABORATORY Final Diagnosis Specimen A. SKIN, top left ear: SOLAR LENTIGO (L81.4) Specimen B. SKIN, left side neck behind jawline: SOLAR LENTIGO (L81.4) Specimen C. SKIN, left upper chest: SEBORRHEIC KERATOSIS, MACULAR; INFLAMED (L82.1) 2 4:58 PM [facility] DERMATOPATHOLOGY LABORATORY at [address] FAMILY SERVICE AIDE Clinical History A-B: Lentigo, Other C: SCC, BCC 2 4:58 PM [facility] DERMATOPATHOLOGY LABORATORY Gross Description Specimen A: Received [...] 10x8x1 mm. Jar 0. 2 4:58 PM [facility] DERMATOPATHOLOGY LABORATORY Microscopic Description Specimen A. SKIN, [...] infiltrate within the dermis. 2 4:58 PM [facility] DERMATOPATHOLOGY LABORATORY Disclaimer An external and internal positive and negative controls are appropriate for the histochemical, immunohistochemical and immunofluorescence stain(s) in this case (if any), except where stated explicitly. The performance characteristics of the stain(s) cited in this report were developed and its performance characteristic determined by the Dermatopathology Laboratory at [facility], directed by Dr. Lesia Dumont. These tests need not be, and therefore are not, approved by the [place] Food and Drug Administration. The tests are used for clinical purposes. Billing Codes Specimen Charges Stain Charges 44955 [id number] [id number] 1 1 1 2 4:58 PM [facility] DERMATOPATHOLOGY LABORATORY Embedded Images 2 4:58 PM [facility] DERMATOPATHOLOGY LABORATORY Pathology/Cytology TISSUE SPECIMEN FROM SKIN / Unknown 10/05/2022 10/10/2022 12:12 PM FAMILY SERVICE AIDE Miscellaneous samples (specimen) TISSUE SPECIMEN FROM SKIN / Unknown 10/05/2022 10/10/2022 12:12 PM FAMILY SERVICE AIDE Miscellaneous samples (specimen) TISSUE SPECIMEN FROM SKIN / Unknown 10/05/2022 10/10/2022 12:12 PM FAMILY SERVICE AIDE Roberto Roy MD LAB - PATHOLOGY/CYTOLOGY ORD ERABLES Final Result DERMATOPATHOLOGY LABORATORY [facility] - Department of Dermatology [facility] [address] [facility] [phone] documented in this encounter Visit Diagnoses Not on filedocumented in this encounter Care Teams Sawmill Moulder Operator Relationship Specialty Start Date End Date Atilio Jj MD [address] [place] [phone] PCP - General 05/20/15 06/25/24 Kendra Adrian MD [address] [place] [address] PCP - General Family Medicine 06/26/24 10/06/24 Unknown, Provider PCP - General 10/07/24 02/05/25 Enedina Valdes MD [address] [place] [address] [place] [address] PCP - General Internal Medicine Geriatric Medicine 02/06/25 documented as of this encounter
--- OUTSIDE RECORDS SUMMARY | 2025-04-22 08:50 | XMS_ITS | Clinical Summary ---
Author Organization [facility] Address [address] [facility] [place] [address] Care Team Providers Care Print Binding Worker Name Role Phone Enedina Valdes MD Primary Care Provider [phone] Source Comments [facility],non-owned Affiliates and Associated Physician Practices is amultiple site organization consisting of ambulatory clinics and hospital sitesin [place], [place]. This disclosure is being madepursuant to the Care Everywhere program and may not contain all information available regarding this patient. Last updated 18.[facility] Allergies Active Allergy Reactions Criticality Noted Date Comments Donnie Inhibitors Cough 02/26/2025 Codeine Anxiety,Other Low 03/06/2015 Patient feels jittery Medications * Be aware that medications may not be up to date on this document. Alwaysverify current medications with the patient. albuterol HFA (Proventil; Ventolin; Proair) 108 (90 Base) MCG/ACT inhaler ProAir HFA Act severo atorvastatin (Lipitor) 10 MG tablet Take 1 (one) tablet by mouth once daily 06/29/20 23 Active Biotin 10 MG Active Breo Ellipta 200-25 MCG/ACT inhaler INHALE 1 PUFF BY MOUTH DAILY. RINSE AND SPIT AFTER EACH USE 09/04/20 23 Active meclizine (Antivert) 25 MG tablet Take 1 (one) tablet by mouth 3 times daily as needed For dizziness. 08/09/20 23 Active Myrbetriq 50 MG tablet Take 1 (one) tablet by mouth once daily 09/05/20 23 Active mirtazapine (Remeron) 15 MG tablet Take 1 (one) tablet by mouth 08/29/20 23 Active montelukast (Singulair) 10 MG tablet Take 1 (one) tablet by mouth every evening 06/29/20 23 Active losartan (Cozaar) 100 MG tablet Take 0.5 (one-half) tablet by mouth once daily 45 tablet 3 09/17/20 24 025 Active eszopiclone (Lunesta) 1 MG tablet TAKE 1 TABLET BY MOUTH EVERY DAY AT BEDTIME 90 tablet 3 10/09/20 24 Active betamethasone dipropionate (Diprosone) 0.05 % cream Apply to affected area 2 times daily Active tacrolimus (Protopic) 0.1 % ointmentIndicatio ns:Other pruritus Apply to affected areas two times daily. 30 days supply. 100 g 11 10/07/20 24 Active triamcinolone acetonide (Kenalog) 0.1 % creamIndications: Other pruritus Apply to affected area on trunk and extremities BID. 30 day supply. 454 g 1 01/15/20 25 Active fexofenadine (Diana) 180 MG tablet Take 1 (one) tablet by mouth once daily 01/23/20 25 Active citalopram (CeleXA) 40 MG tablet Take 0.5 (one-half) tablet by mouth once daily 90 tablet 3 03/05/20 25 Active suvorexant (Belsomra) 5 MG tabletIndications :Type 2 diabetes mellitus with other circulatory complications (HCC) Take 1 (one) tablet by mouth nightly as needed for Insomnia 30 tablet 5 03/26/20 25 Active celecoxib (CeleBREX) 200 MG capsule Take 1 (one) capsule by mouth 2 times daily as needed (pain) 60 capsule 3 04/10/20 25 Active suvorexant (Belsomra) 5 MG tabletIndications :Type 2 diabetes mellitus with other circulatory complications (HCC) Take 1 (one) tablet by mouth nightly as needed for Insomnia 30 tablet 5 01/23/20 25 025 Discontin ued(Reord er) Active Problems Problem Noted Date Diagnosed Date Diabetes mellitus type II, non insulin dependent 03/14/2019 Essential hypertension 03/14/2019 Migraine with aura and witho ut status migrainosus, not intractable 03/25/2016 Sensorineural hearing loss 01/15/2016 Dizziness and giddiness 01/13/2016 Other vitreous opacities, unspecified eye 2014 Encounters Date Type Department Care Team Description 04/10/2025 Orders Only [facility] - Geriatrics [address] [place] [phone] Enedina Valdes MD 04/02/2025 1:00 PM CDT - 04/02/2025 11:59 PM CDT Hospital Encounter [facility] - Orthopedics [address] [place] [address], [address] [place] [address] Rob Sears, SYNTHETIC CHEMIST-CIRCUIT COURT JUDGE Discharge Disposition: Home or Self Care 04/02/2025 1:00 PM CDT Office Visit [facility] - Orthopedic Surgery [address] [place] [phone] Rob Sears, SYNTHETIC CHEMIST-CIRCUIT COURT JUDGE Primary osteoarthritis of left hip (Primary Dx); Status post total replacement of right hip 04/02/2025 Travel 04/01/2025 Orders Only [facility] - [facility] [address] [place] [phone] Rob Sears, SYNTHETIC CHEMIST-CIRCUIT COURT JUDGE Pain of left hip 03/26/2025 Refill [facility] - Geriatrics [address] [place] [phone] Enedina Valdes MD MEDICATION REFILL 03/05/2025 Refill [facility] [address] [place] [phone] Enedina Valdes MD Refill Request 02/26/2025 Orders Only [facility] [address] [place] [phone] Enedina Valdes MD Unilateral primary osteoarthritis, right hip 02/05/2025 Telephone [facility] - Endocrinology [facility] [facility], [place] [address] Enedina Valdes MD Question (Question about Citalopram) 01/22/2025 10:55 AM CDT - 01/22/2025 11:59 PM CDT Hospital Encounter [facility] OP DRAW STATION [address] [place] [address] Crystal Lemon APRN-CIRCUIT COURT JUDGE Discharge Disposition: Home or Self Care 01/22/2025 8:30 AM CDT Office Visit [facility] - Geriatrics [address] [facility], [place] [address] Enedina Valdes MD 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); Greater trochanteric bursitis of left hip 01/22/2025 Travel from Last 3 Months Immunizations Immunization Administration Dates Next Due [facility] primary monoval ent 12+ yr 0.3mL Purple [...] Used Date Smoking Tobacco: Former Cigarettes 0.5 52.4 S tarted: 1973 Smokeless Tobacco: Never Tobacco Cessation:Ready to Q uit: Not Asked; Counseling Given: Not Answered Alcohol Use Standard Drinks/Week Comments Yes 0 (1 standard drink = 0.6 oz pur e alcohol) PHQ-2 Answer Date Recorded Patient Health Questionnaire-2 Score 3 03/26/2025 Comments Unknown Sex and Gender Information Value Date Recorded Sex Assigned at Not on file Legal Sex Female 5:25 PM 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 OF 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 Gender Identity Not on file Sexual Orientation [...] 8:25 AM CDT Height 154.9 cm (5' 1) 08/19/2024 2:35 PM CDT Body Mass Index 44.78 08/19/2024 2:35 PM CDT Plan of Treatment Upcoming Encounters Date Type Department Care Team (Late st Contact Info) Description 05/06/2025 1:10 PM CDT Office Visit [facility] - Dermatology [address] [place] [address], [place] [phone] Melanie Williamson MD [address] [place] [address] [place] [address] 05/28/2025 10:30 AM CDT Office Visit [facility] - Geriatrics [address] [place] [address] [place] [address] Enedina Valdes MD [address] [place] [address] OF [facility] [place] [place] [address] Health Maintenance Due Date Last Done Comments [...] Procedure Name Priority Date/Time Associated Diagnosis Comments XR PELVIS W LEFT HIP 2VW Routine 04/02/2025 1:27 PM CDT Pain of left hip FOLATE Routine 01/22/2025 11:21 AM CDT Essential [...] Routine 01/22/2025 11:21 AM CDT Essential hypertension CA DRAIN/INJECT LARGE JOINT/BURSA Routine 01/22/2025 10:27 AM CDT Greater trochanteric bursitis of left hip HEMOGLOBIN A1C - POINT OF CARE (AMB) [facility] Routine 01/22/2025 9:35 AM CDT Type 2 diabetes mellitus with other circulatory complications DEXA BONE DENSITY AXIAL SKELETON Routine 10/08/2024 10:16 AM PROFESSOR OF VOICE Vitamin D deficiency Age related osteoporosis, unspecified pathological fracture presence from Last 3 Months or Most Recently Relevant to Health Maintenance Results * XR Pelvis W Left Hip 2Vw (04/02/2025 1:27 PM CDT) Anatomical Region Laterality Modality Pelvis Radiographic Sandra ging 04/02/2025 1:30 PM CDT Impressions 04/02/2025 1:31 PM CDT IMPRESSION: 1. Advanced left hip primary osteoarthritis 2. Intact right hip arthroplasty > Interpreting Provider: Korina Delvalle MD on 04/02/2025 1:31 PM Narrative 04/02/2025 1:31 PM CDT PROCEDURE: XR PELVIS W LEFT HIP 2VW DATE/TIME OF EXAM: 04/02/2025 1:27 PM CLINICAL INFORMATION: None relevant/not provided if blank. Indication: M25.552: Pain in left hip Additional History: Weightbearing COMPARISON: None. Findings: The right total knee arthroplasty is normally positioned. No evidence of hardware failure or loosening. On the left there is advanced primary knee osteoarthritis with obliteration of the weightbearing cartilage and numerous subchondral cysts and sclerosis. No fracture. The sacroiliac joints and pubic symphysis are unremarkable. There is degenerative disc disease in the lower lumbar spine. Procedure Note Korina Delvalle MD - 04/02/2025 PROCEDURE: XR PELVIS W LEFT HIP 2VW DATE/TIME OF EXAM: 04/02/2025 1:27 PM CLINICAL INFORMATION: None relevant/not provided if blank. Indication: M25.552: Pain in left hip Additional History: Weightbearing COMPARISON: None. Findings: The right total knee arthroplasty is normally positioned. No evidenceof hardware failure or loosening. On the left there is advanced primary knee osteoarthritis withobliteration of the weightbearing cartilage and numerous subchondral cysts and sclerosis. No fracture. The sacroiliac joints and pubic symphysis are unremarkable. There is degenerative disc disease in the lower lumbar spine. IMPRESSION: 1. Advanced left hip primary osteoarthritis 2. Intact right hip arthroplasty > Interpreting Provider: Korina Delvalle MD on 04/02/2025 1:31 PM Rob Sears SYNTHETIC CHEMIST-CIRCUIT COURT JUDGE DIAGNOSTIC IMAGING ORDER MARYAM Final Result * TSH REFLEX FREE T4 (01/22/2025 11:21 AM CDT) TSH 1.826 0.350 - 4.940 uIU/mL 01/22/2025 12:43 PM CDT [facility] Blood BLOOD SPECIMEN / Unknown Lab Venipuncture / Unknown 01/22/2025 11:21 AM CDT 01/22/2025 11:38 AM CDT Crystal DOMINGUEZ LAB - CHEMISTRY ORDERABLES Final Result [facility] [address] [place] [address], [facility] [phone] * VITAMIN D 25-HYDROXY (01/22/2025 11:21 AM CDT) Vitamin D, 25 Hydroxy 37.9 30.0 - 80.0 ng/mL 01/22/2025 12:43 PM CDT [facility] Comment: The recommendations for 25-Hydroxy Vitamin D [...] DOMINGUEZ LAB - CHEMISTRY ORDERABLES Final Result [facility] [address] [place] [address], [facility] [phone] * (ABNORMAL) CBC W/ DIFFERENTIAL (01/22/2025 11:21 AM CDT) WBC 9.1 4.0 - 10.7 x10E9/L 01/22/2025 11:46 AM CDT [facility] RBC Count 4.16 3.90 - 5.20 x10E12/L 01/22/2025 11:46 AM CDT [facility] Hemoglobin 13.3 11.9 - 15.8 g/dL 01/22/2025 11:46 AM CDT [facility] Hematocrit 41.1 34.8 - 46.1 % 01/22/2025 11:46 AM CDT [facility] MCV 98.8(H) 80.0 - 98.0 fL 01/22/2025 11:46 AM [facility] MCH 32.0 26.7 - 33.6 pg 01/22/2025 11:46 AM [facility] MCHC 32.4 31.7 - 36.3 g/dL 01/22/2025 11:46 AM [facility] RDW-CV 14.1 11.3 - 14.8 % 01/22/2025 11:46 AM [facility] Platelet Count 270 150 - 420 x10E9/L 01/22/2025 11:46 AM [facility] MPV 10.5 7.8 - 11.4 fL 01/22/2025 11:46 AM [facility] Neutrophil % 46.8 41.0 - 74.0 % 01/22/2025 11:46 AM [facility] Lymphocyte % 34.8 17.0 - 47.0 % 01/22/2025 11:46 AM [facility] Monocyte % 10.6 3.0 - 11.0 % 01/22/2025 11:46 AM [facility] Eosinophil % 6.3 0.0 - 7.0 % 01/22/2025 11:46 AM [facility] Basophil % 1.3 0.0 - 1.6 % 01/22/2025 11:46 AM [facility] Immature Granulocytes % 0.2 0.0 - 1.0 % 01/22/2025 11:46 AM [facility] Neutrophil Absolute 4.26 1.60 - 7.50 x10E9/L 01/22/2025 11:46 AM [facility] Lymphocyte Absolute 3.17 1.00 - 4.40 x10E9/L 01/22/2025 11:46 AM [facility] Monocyte Absolute 0.97 0.15 - 1.00 x10E9/L 01/22/2025 11:46 AM [facility] Eosinophil Absolute 0.57 0.00 - 0.60 x10E9/L 01/22/2025 11:46 AM [facility] Basophil Absolute 0.12 0.00 - 0.13 x10E9/L 01/22/2025 11:46 AM [facility] Blood BLOOD SPECIMEN / Unknown Lab Venipuncture / Unknown 01/22/2025 11:21 AM CDT 01/22/2025 11:38 AM CDT us Crystal Lemon SYNTHETIC CHEMIST-CIRCUIT COURT JUDGE LAB - HEMATOLOGY ORDERABLE S Final Result [facility] [address] [place] [address], [facility] [phone] * (ABNORMAL) COMPREHENSIVE METABOLIC PANEL (01/22/2025 11:21 AM CDT) BUN 13 7 - 26 mg/dL 01/22/2025 12:11 PM [facility] Creatinine 0.77 0.56 - 0.96 mg/dL 01/22/2025 12:11 PM [facility] Sodium 137 136 - 145 mmol/L 01/22/2025 12:11 PM [facility] Potassium 4.2 3.5 - 4.5 mmol/L 01/22/2025 12:11 PM [facility] Chloride 104 98 - 107 mmol/L 01/22/2025 12:11 PM [facility] CO2 26 22 - 29 mmol/L 01/22/2025 12:11 PM [facility] Glucose 96 70 - 99 mg/dL 01/22/2025 12:11 PM [facility] Calcium 9.9 8.4 - 10.2 mg/dL 01/22/2025 12:11 PM [facility] Protein Total 7.7 6.0 - 8.3 g/dL 01/22/2025 12:11 PM [facility] Albumin 4.0 3.4 - 5.0 g/dL 01/22/2025 12:11 PM [facility] Bilirubin Total 0.8 0.2 - 1.2 mg/dL 01/22/2025 12:11 PM [facility] Alkaline Phosphatase 65 40 - 150 U/L 01/22/2025 12:11 PM [facility] ALT 29 5 - 55 U/L 01/22/2025 12:11 PM [facility] AST 30 5 - 34 U/L 01/22/2025 12:11 PM [facility] Anion Gap 7 6 - 16 01/22/2025 12:11 PM [facility] BUN/Creatinine Ratio 17 7 - 23 01/22/2025 12:11 PM [facility] Osmolality Calculated 284 275 - 295 mOsm/kg 01/22/2025 12:11 PM [facility] Albumin/Globulin Ratio 1.1 1.1 - 2.3 01/22/2025 12:11 PM [facility] eGFR by CKD-EPI 76(L) >=90 mL/min/1.7 3 m2 01/22/2025 12:11 PM [facility] Blood BLOOD SPECIMEN / Unknown Lab Venipuncture / Unknown 01/22/2025 11:21 AM CDT 01/22/2025 11:38 AM CDT Crystal DOMINGUEZ LAB - CHEMISTRY ORDERABLES Final Result [address] [address], [facility] [phone] * FOLATE (01/22/2025 11:21 AM CDT) Folate 10.1 7.0 - 31.4 ng/mL 01/22/2025 12:43 PM T [facility] Blood BLOOD SPECIMEN / Unknown Lab Venipuncture / Unknown 01/22/2025 11:21 AM CDT 01/22/2025 11:38 AM CDT Crystal Lemon APRN-CIRCUIT COURT JUDGE LAB - CHEMISTRY ORDERABLES Final Result [address] [address], [facility] [phone] * VITAMIN B12 (01/22/2025 11:21 AM CDT) Vitamin B12 334 213 - 816 pg/mL 01/22/2025 12:43 PM [facility] Blood BLOOD SPECIMEN / Unknown Lab Venipuncture / Unknown 01/22/2025 11:21 AM CDT 01/22/2025 11:38 AM CDT Crystal Lemon APRNCIRCUIT COURT JUDGE LAB - CHEMISTRY ORDERABLES Final Result Performing Organization Address City/[facility]/ZIP Co de Phone Number [facility] [address] [place] [address], [place] [phone] * LIPID PROFILE (01/22/2025 11:21 AM CDT) [facility] Cholesterol Total 144 <200 mg/dL 01/22/2025 12:11 PM [facility] HDL 69 >40 mg/dL 01/22/2025 12:11 PM [facility] Comment: ATP III Classification of HDL Cholesterol: <40 mg/dL: Considered a major risk factor. >60 mg/dL: Considered a negative risk factor. LDL Calculated 51 <100 mg/dL 01/22/2025 12:11 PM [facility] Comment: ATP III Classification of LDL Cholesterol: <100 mg/dL: Optimal 100 - 129 mg/dL: Near Optimal/Above Optimal 130 - 159 mg/dL: Borderline High 160 - 189 mg/dL: High >190 mg/dL: Very High Triglycerides 122 <150 mg/dL 01/22/2025 12:11 PM [facility] Comment: ATP III Classification of Triglycerides: <150 mg/dL: Normal 150 - 199 mg/dL: Borderline High 200 - 400 mg/dL: High >500 mg/dL: Very High Blood BLOOD SPECIMEN / Unknown Lab Venipuncture / Unknown 01/22/2025 11:21 AM CDT 01/22/2025 11:38 AM CDT Crystal DOMINGUEZ LAB - CHEMISTRY ORDERABLES Final Result [facility] [address] [place] [address], [place] [phone] * CA DRAIN/INJECT LARGE JOINT/BURSA (01/22/2025 10:27 AM CDT) [...] Patient report following procedure: no side effects Enedina Valdes MD PROCEDURE/MINOR SURGICAL ORDE RABLES Final Result * HEMOGLOBIN A1C - POINT OF CARE (AMB) [facility] (01/22/2025 9:35 AM CDT) Hemoglobin A1c POCT 6.0 % [address] BLOOD SPECIMEN / Unknown 01/22/2025 9:35 AM CDT Enedina Valdes MD LAB - POINT OF CARE ORDERABLE S Final Result [address], [place] [address], [facility] [phone] * BONE DENSITY AXIAL SKELETON(1OR MORE SITES)[id number] (10/08/2024 10:16 AM PROFESSOR OF VOICE) Anatomical Region Laterality Modality Other 10/08/2024 11:3 2 AM PROFESSOR OF VOICE Narrative 10/14/2024 10:04 AM PROFESSOR OF VOICE PROCEDURE: DEXA BONE DENSITY AXIAL SKELETON DATE/TIME [...] and below > Dictated by Claire Dale (Yoke Setter) 10/08/2024 11:32 AM IMarisa DO have personally reviewed and interpreted this [...] and below > Dictated by Claire Dale (Yoke Setter) 10/08/2024 11:32AM I, Marisa Harvey DO have personally reviewed and interpreted this examination/study. > Interpreting Provider: Marisa Harvey DO on 10/14/2024 10:04 AM Crystal Lemon SYNTHETIC CHEMIST-CIRCUIT COURT JUDGE DEXA ORDERABLES Final Resu lt from Last 3 Months or Most Recently Relevant to Health Maintenance Insurance MEDICARE [facility] MEDICARE [employer] [facility] [employer] Care Teams Print Binding Worker Relationship Specialty Start Date End Date Enedina Valdes MD [address] [address] PCP - General Internal Medicine Geriatric Medicine 02/06/25
--- OUTSIDE RECORDS SUMMARY | 2025-04-22 08:50 | XMS_ITS | Referral Summary ---
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 Gender Identity Not on file Sexual Orientation Not on file Last Filed Vital Signs Vital Sign Reading Time Taken Comments Blood Pressure 134/76 01/06/2025 3:15 PM WRAPPER [employer]AY[employer] EXAMINER [employer] Pulse 50 01/06/2025 3:15 PM WRAPPER LAYER AND EXAMINER [employer] WORK Temperature 36.1 C (96.9 F) 09/09/2020 2:54 PM CDT Respiratory Rate 16 09/09/2020 2:54 PM CDT Oxygen Saturation 96% 01/06/2025 3:15 PM WRAPPER LAYER AND EXAMINER [employer]FT WORK Inhaled Oxygen Concentration - - Weight 108.4 kg (239 lb) 01/06/2025 3:15 PM WRAPPER LAYER AND EXAMINER SOFT WORK Height 154.9 cm (5' 1) 01/06/2025 3:15 PM WRAPPER LAYER AND EXAMINER SOFT WORK Body Mass Index 45.16 01/06/2025 3:15 PM WRAPPER LAYER AND EXAMINER SOFT WORK Plan of Treatment Not on file Insurance MEDICARE [facility] JOCELYNN Harvey [id number] MEDICARE [facility] Advance Directives For more information, please contact: [phone] Documents on File Type Date Recorded Patient International Banker Expl anation ADVANCE DIRECTIVE 06/25/2018 12:00 AM DONTAE CUEVAS WILL Care Teams Tree Faller Relationship Specialty Start Date End Date Enedina Valdes MD [address] [address] PCP - General Geriatric Medicine 01/06/25
[2025-04-22 08:59] VITALS: BP 149/80; PULSE 72; RESP 16; TEMP 37.1; O2SAT 95
[2025-04-22 10:07] VITALS: BP 169/79; PULSE 85; RESP 15; O2SAT 95
[2025-04-22 10:12] VITALS: BP 154/78; PULSE 82; RESP 11; O2SAT 95
[2025-04-22 10:19] VITALS: BP 141/65; PULSE 82; RESP 13; O2SAT 93
[2025-04-22] MEDS: BUPivacaine HCL 0.5% 10 ML AMP 5 ML INFILTRATE (10:20)
[2025-04-22] MEDS: LIDOCAINE 1% PF INJ 5 ML VIAL 3 ML INFILTRATE (10:20)
[2025-04-22 10:25] VITALS: BP 151/74; PULSE 74; RESP 18; O2SAT 97
== END 2025-04-22 10:40 | disposition home or self-care (01) ==
PROVIDERS: PCP Family Medicine; Visit Provider Anesthesiology Pain Medicine
PROC: (CPT 64490; principal; 2025-04-22 09:50)
DX: M47.812 Spondylosis without myelopathy or radiculopathy, cervical region (principal); G89.29 Other chronic pain
CPT/HCPCS: 64490; 64491; 99199

== ENCOUNTER 2025-05-20 07:43 | Day surgery (SDC) | payer MEDICARE, OTHER, SELFPAY ==
[2025-05-07 11:03] VITALS: BMI 44.4
--- NOTE | ~2025-05-20 | XR_ITS ---
INTRAOPERATIVE FLUOROSCOPY: CLINICAL HISTORY: 84 years old Female; DIAG/PROG RIGHT C3,C4,C5 BLK PROCEDURE COMMENTS: Limited intraoperative fluoroscopy of the cervical spine was performed. CUMULATIVE DOSE: 31.3 mGy FLUOROSCOPY TIME: 101.5 seconds FINDINGS/IMPRESSION: Please refer to operative note for further details. Reviewed, dictated and finalized at location A.
--- NOTE | 2025-05-20 06:33 | WPDHPUPDATE1 ---
History and Physical Update Update Date/Time: 05/20/25 06:33 History and Physical has been reviewed, including an updated exam of the patient. There are NO changes in the patient's condition. Risks, benefits, and alternatives have been discussed and questions answered. Patient agrees to proceed with procedure.
--- NOTE | 2025-05-20 06:34 | W.PM.PROC2 ---
Procedure Note - Detailed Date of Procedure 05/20/25 Pre-op Diagnosis Cervical Spondylosis Post-op Diagnosis Same Procedure Performed Diagnostic Right Cervical Medial Branch Nerve Blocks at C3, C4, C5 (#2) Blocking the Ipsilateral C3-4, C4-5 facet joints under Fluoroscopic Guidance and with Contrast Control (2 levels blocked). Surgeon Armando Tillman MD Manager Customs None. Anesthesia Local Description of Procedure INFORMED CONSENT: Risks, benefits and alternatives to the procedure were discussed in detail with the patient who expressed explicit understanding and consent to proceed. Patient was informed verbally and in written form regarding the risks associated with the procedure including the low risk of serious infection, bleeding/bruising, allergic reaction, nerve or organ injury, paralysis, procedural site pain or discomfort, worsening pain and/or mobility, failure to treat and/or disfigurement. The patient expressed explicit understanding and consent to proceed. All materials required for the procedure were available prior to procedure start. Site and side were marked prior to procedure and confirmed in the presence of the patient. PROCEDURE IN DETAIL: The patient was brought to the procedural suite and placed in the prone position with head stabilized with a ProneView pillow. Patient was made comfortable with use of pillows under the head/chest, hips and ankles. Skin overlying the injection site on the affected side(s) was prepared broadly with ChloraPrep applicator and draped in a sterile manner. Aseptic technique was used throughout. The endplates of the vertebral bodies at the site(s) of interest were aligned in the AP view. Ipsilateral oblique angulation was utilized to optimize visualization of the pars interarticularis at each target site. Local anesthesia was established by infiltration with approximately 5 mL of 0.5% lidocaine via a 1-1/2 inch 27-gauge needle divided over each injection site. A 25-gauge 3.5 inch Quincke spinal needle was advanced until the needle tip contacted the periosteum of the pars interarticularis at the target site, right C3 medial branch. Lateral view was utilized to confirm the appropriate placement of the needle tip just anterior to the center point of the interarticularis. In the Lateral view, 0.25 mL of Omnipaque 300 contrast medium was injected after negative aspiration for CSF, blood or other bodily fluid, showing appropriate extra-articular spread of contrast without evidence of intravascular, foraminal or intrathecal placement. A 0.25 mL solution of 2.0% PF Lidocaine was injected after negative repeat aspiration. Appropriate spread of the injectate was confirmed with washout of previously injected contrast. No parasthesias were elicited. Needle was removed completely intact without difficulty. The same exact procedure was repeated for all remaining levels on the ipsilateral side, right C4,C5 medial branches, modified as necessary to accommodate for the new target location with identical findings and results and no evidence of complication. Images were saved and documented in the patient chart. Patient's skin was cleansed and sterile bandage applied. The patient tolerated the procedure well. The patient was transported to the recovery area in stable condition where they were observed for an appropriate amount of time prior to discharge, without evidence of complication. Patient was instructed on the appropriate completion of a pain diary over the next 12-24 hours. The patient was instructed to avoid excessive activity for the next 48 hours, including climbing and frequent use of stairs. Showers only for 48 hours. They were instructed not to drive or operate heavy machinery for 24 hours. They are to monitor for severe headaches, fevers, chills, night sweats, erythema/swelling at the site or any other signs of infection, bleeding/bruising, bowel or bladder changes as well as new pain, weakness or numbness in the upper or lower extremity. Should they notice these changes, they are instructed to call our office immediately or report directly to the nearest Emergency Department if no answer or if after posted office hours. COMPLICATIONS: None COMMENTS: None CONTRAST WASTED: 29.25mL Omnipaque 300. Complications No immediate complications Condition Stable Disposition Same day [facility] Billing Surgery - Charge Forward: Surgery Billing
[2025-05-20 08:01] VITALS: BP 127/73; PULSE 58; RESP 20; TEMP 37.1; O2SAT 95
--- OUTSIDE RECORDS SUMMARY | 2025-05-20 08:03 | XMS_ITS | Clinical Summary ---
Author Organization [facility] [address] [facility] tt Address [address] [facility] [place] [place] [address] Care Team Providers Care Pond Sawyer Name Role Phone Enedina Valdes MD Primary Care Provider [phone] Allergies Active Allergy Reactions Criticality Noted Date [...] on file Legal Sex Female 1:41 PM SECURITY OFFICERS AND GUARDS Gender Identity Not on file Sexual Orientation Not on file Obstetrics History Last Filed Vital Signs Vital Sign Reading Time Taken Comments Blood Pressure 134/76 01/06/2025 3:15 PM SECURITY OFFICERS AND GUARDS Pulse 50 01/06/2025 3:15 PM SECURITY OFFICERS AND GUARDS Temperature 36.1 C (96.9 F) 09/09/2020 2:54 PM CDT Respiratory Rate 16 09/09/2020 2:54 PM CDT Oxygen Saturation 96% 01/06/2025 3:15 PM SECURITY OFFICERS AND GUARDS Inhaled Oxygen Concentration - - Weight 108.4 kg (239 lb) 01/06/2025 3:15 PM SECURITY OFFICERS AND GUARDS Height 154.9 cm (5' 1) 01/06/2025 3:15 PM SECURITY OFFICERS AND GUARDS Body Mass Index 45.16 01/06/2025 3:15 PM SECURITY OFFICERS AND GUARDS Plan of Treatment Health Maintenance Due Date [...] 11/14, 09/09/2016, Additional history exists Insurance MEDICARE [employer] [place] [employer] [place] Advance Directives For more information, please contact: [phone] Documents on File Type Date Recorded Patient Automatic Driller And Reamer Expl anation ADVANCE DIRECTIVE 06/25/2018 12:00 AM DONTAE CUEVAS WILL Care Teams Pond Sawyer Relationship Specialty Start Date End Date Enedina Valdes MD [address] [address] PCP - General Geriatric Medicine 01/06/25
--- OUTSIDE RECORDS SUMMARY | 2025-05-20 08:03 | XMS_ITS | Clinical Summary ---
Author Organization [facility] Address [address] [place] [address] Care Team Providers Care Hardware Engineering Manager Name Role Phone Kendra Adrian MD Primary Care Provider [phone] Allergies Active Allergy Reactions Criticality Noted Date [...] Active vitamin D2, ergocalciferol, (VITAMIN D, ERGOCALCIFEROL,) 22793 UNITS capsule Take 50,000 Units by mouth. Active Biotin 10 MG Cap Act severo Multiple Vitamins-Minerals (MULTI COMPLETE OR) Active [facility] Natural Products (NEURIVA OR) Active Biotin w/ [...] (Generic) 08/25/2021 Varicella (Varivax) 09/09/2016 Zoster (Zostavax) 51741 Unt/0.65Ml 02/20/2014 Family History Medical History Relation [...] age to complete this topic Insurance MEDICARE [facility] Care Teams Hardware Engineering Manager Relationship Specialty Start Date End Date Kendra Adrian MD [address] [place] [address] PCP - General FAMILY PRACTICE 02/16/22
--- OUTSIDE RECORDS SUMMARY | 2025-05-20 08:03 | XMS_ITS | Encounter Summary ---
Author Organization [facility] Care Team Providers Care Maori Liaison Adviser Name Role Phone Atilio Jj MD Primary Care Provider [phone] Siomara Dudley MD Primary Care Provider [phone] Enedina Valdes MD Primary Care Provider [phone] Encounter Details Date Type Department Care Team (Latest Contact Info) Description 06/07/2018 Orders Only [facility]INCON[facility] ProviderSujey MD [address] [place] [address] Social History Tobacco Use Types Packs/Day Years Used Date Smoking Tobacco: Never Assessed Comments Unknown Sex and Gender Information Value Date Recorded Sex Assigned at Not on file Legal Sex Female 1:41 PM STEEL FABRICATING SUPERVISOR Gender Identity Not on file Sexual Orientation [...] on filedocumented in this encounter Care Teams Maori Liaison Adviser Relationship Specialty Start Date End Date Atilio Jj MD [address] [facility] [place] [address] [place], [place] [id number] PCP - General Internal Medicine 02/06/19 03/13/19 Siomara Dudley MD [address] [facility] [address] [facility] [place] [address] [place] [address] PCP - General Family Practice 03/14/19 01/05/25 Enedina Valdes MD [address] [address] PCP - General Geriatric Medicine 01/06/25 documented as of this encounter
--- OUTSIDE RECORDS SUMMARY | 2025-05-20 08:03 | XMS_ITS | Encounter Summary ---
Author Organization [facility] Address [facility] [place] [place] [address] Care Team Providers Care Business Architect Name Role Phone Kendra Adrian MD Primary Care Provider [phone] Encounter Details Date Type Department Care Team (Late st Contact Info) Description 12/21/2015 Abstract [facility] CONVERSION [address] [place] [address] , Generic ConversionMD Social History Tobacco Use [...] on filedocumented in this encounter Care Teams Business Architect Relationship Specialty Start Date End Date Kendra Adrian MD [address] [place] [address] PCP - General FAMILY PRACTICE 02/16/22 documented as of this encounter
--- OUTSIDE RECORDS SUMMARY | 2025-05-20 08:03 | XMS_ITS | Encounter Summary ---
Author Organization [facility] Address [address] [facility] [place] [address] Care Team Providers Care Driver Trainer Name Role Phone Atilio Jj MD Primary Care Provider [phone] Kendra Adrian MD Primary Care Provider [phone] Unknown, Provider Primary Care Provider Enedina Iasac MD Primary Care Provider [phone] Encounter Details Date Type Department Care Team (Late Contact Info) Description 10/10/2022 Lab Requisition [facility] Care DermPath Lab [address] [facility] [place] [address] Roberto [place] [address] Social History Tobacco Use Types Packs/Day Years Used Date Smoking Tobacco: Every Day Cigarettes Smokeless Tobacco: Never Alcohol Use Standard Drinks/Week Comments Yes 0 (1 standard drink = 0.6 oz pur e alcohol) Comments Unknown Sex and Gender Information Value Date Recorded Sex Assigned at Not on file Legal Sex Female 5:25 PM LEGAL BILLING SPECIALIST Gender Identity Not on file Sexual Orientation Not on file documented as of this encounter Plan of Treatment Upcoming Encounters Date Type Department Care Team (Late Contact Info) Description 05/28/2025 10:30 AM CDT Office Visit [facility] - Geriatrics [address] [facility] [address] [place] [address] Enedina Valdes MD [address] [place] [address] 05/06/2026 12:50 PM CDT Office Visit [facility] - Dermatology [address] [place] [address], [place] [phone] Melanie Williamson MD [address] [place], [place] [address] [address] documented as of this encounter Procedures Procedure Name Priority Date/Time Associated Diagnosis Comments DERMATOPATHOLOGY Routine 10/05/2022 12:0 0 AM LEGAL BILLING SPECIALIST documented in this encounter Results * DERMATOPATHOLOGY (10/05/2022 12:00 AM LEGAL BILLING SPECIALIST) Case Report Dermatopathology Report Case: [id number] Authorizing Provider: Roberto Roy MD Collected: 10/05/2022 12:00 AM Ordering Location: [facility] Derm[facility] Lab Received: 10/10/2022 12:12 PM Pathologist: Mariela Dumont MD Specimens: A) - Skin, top left ear B) - Skin, left side neck behind jawline C) - Skin, left upper chest 2 4:58 PM LEGAL BILLING SPECIALIST DERMATOPATHOLOGY LABORATORY Final Diagnosis Specimen A. SKIN, top left ear: SOLAR LENTIGO (L81.4) Specimen B. SKIN, left side neck behind jawline: SOLAR LENTIGO (L81.4) Specimen C. SKIN, left upper chest: SEBORRHEIC KERATOSIS, MACULAR; INFLAMED (L82.1) 2 4:58 PM LEGAL BILLING SPECIALIST DERMATOPATHOLOGY LABORATORY at 1658 LEGAL BILLING SPECIALIST Clinical History A-B: Lentigo, Other C: SCC, BCC 2 4:58 PM LEGAL BILLING SPECIALIST DERMATOPATHOLOGY LABORATORY Gross Description Specimen A: Received [...] 10x8x1 mm. Jar 0. 2 4:58 PM [facility] DERMATOPATHOLOGY LABORATORY Microscopic Description Specimen A. [...] infiltrate within the dermis. 2 4:58 PM [facility] DERMATOPATHOLOGY LABORATORY Disclaimer An external and internal positive and negative controls are appropriate for the histochemical, immunohistochemical and immunofluorescence stain(s) in this case (if any), except where stated explicitly. The performance characteristics of the stain(s) cited in this report were developed and its performance characteristic determined by the Dermatopathology Laboratory at [facility], directed by Dr. Lesia Dumont. These tests need not be, and therefore are not, approved by the [place] Food and Drug Administration. The tests are used for clinical purposes. Billing Codes Specimen Charges Stain Charges 42866 [id number] 1 1 1 2 4:58 PM [facility] DERMATOPATHOLOGY LABORATORY Embedded Images 2 4:58 PM [facility] DERMATOPATHOLOGY LABORATORY Pathology/Cytology TISSUE SPECIMEN FROM SKIN / Unknown 10/05/2022 10/10/2022 12:12 PM LEGAL BILLING SPECIALIST Miscellaneous samples (specimen) TISSUE SPECIMEN FROM SKIN / Unknown 10/05/2022 10/10/2022 12:12 PM LEGAL BILLING SPECIALIST Miscellaneous samples (specimen) TISSUE SPECIMEN FROM SKIN / Unknown 10/05/2022 10/10/2022 12:12 PM LEGAL BILLING SPECIALIST Roberto Roy MD LAB - PATHOLOGY/CYTOLOGY ORD ERABLES Final Result DERMATOPATHOLOGY LABORATORY [facility] - Department of Dermatology [facility] [address] [facility]rd Floor [address] [phone] documented in this encounter Visit Diagnoses Not on filedocumented in this encounter Care Teams Driver Trainer Relationship Specialty Start Date End Date Atilio Jj MD [address] [place] [address] PCP - General 05/20/15 06/25/24 Kendra Adrian MD [address] [place] [address] PCP - General Family Medicine 06/26/24 10/06/24 Unknown, Provider PCP - General 10/07/24 02/05/25 Enedina Valdes MD [address] [place] [address] [place] [address] PCP - General Internal Medicine Geriatric Medicine 02/06/25 documented as of this encounter
--- OUTSIDE RECORDS SUMMARY | 2025-05-20 08:03 | XMS_ITS | Referral Summary ---
Author Organization [facility] [address] [facility] tt Address [address] [facility] [place] [address] Care Team Providers Care Long Chain Beamer Name Role Phone Enedina Valdes MD Primary Care Provider [phone] Allergies Active Allergy Reactions Criticality Noted Date [...] on file Legal Sex Female 1:41 PM WATCH CASER Gender Identity Not on file Sexual Orientation Not on file Last Filed Vital Signs Vital Sign Reading Time Taken Comments Blood Pressure 134/76 01/06/2025 3:15 PM WATCH CASER Pulse 50 01/06/2025 3:15 PM WATCH CASER Temperature 36.1 C (96.9 F) 09/09/2020 2:54 PM CDT Respiratory Rate 16 09/09/2020 2:54 PM CDT Oxygen Saturation 96% 01/06/2025 3:15 PM WATCH CASER Inhaled Oxygen Concentration - - Weight 108.4 kg (239 lb) 01/06/2025 3:15 PM WATCH CASER Height 154.9 cm (5' 1) 01/06/2025 3:15 PM WATCH CASER Body Mass Index 45.16 01/06/2025 3:15 PM WATCH CASER Plan of Treatment Not on file Insurance MEDICARE [facility] JOCELYNN Harvey [id number] MEDICARE [facility] Address: [address] [address] [facility] Advance Directives For more information, please contact: [phone] Documents on File Type Date Recorded Patient Structural Fitter Expl anation ADVANCE DIRECTIVE 06/25/2018 12:00 AM DONTAE CUEVAS WILL Care Teams Long Chain Beamer Relationship Specialty Start Date End Date Enedina Valdes MD [address] [address] PCP - General Geriatric Medicine 01/06/25
--- OUTSIDE RECORDS SUMMARY | 2025-05-20 08:03 | XMS_ITS | Clinical Summary ---
Author Organization [facility] Address [address] [place] [address] Care Team Providers Care Brim Flexer Name Role Phone Enedina Valdes MD Primary Care Provider [phone] Source Comments [facility],non-owned Affiliates and Associated Physician Practices is amultiple site organization consisting of ambulatory clinics and hospital sitesin [place], [place], [place] and [place]. This disclosure is being madepursuant to the Care Everywhere program and may not contain all information available regarding this patient. Last updated 18.[facility] Allergies Active Allergy Reactions Criticality Noted Date [...] 1 (one) tablet by mouth once daily 023 Active Biotin 10 MG Active Breo Ellipta 200-25 MCG/ACT inhaler INHALE 1 PUFF BY MOUTH DAILY. RINSE AND SPIT AFTER EACH USE 023 Active meclizine (Antivert) 25 MG tablet Take 1 (one) tablet by mouth 3 times daily as needed For dizziness. 023 Active Myrbetriq 50 MG tablet Take 1 (one) tablet by mouth once daily 023 Active mirtazapine (Remeron) 15 MG tablet Take 1 (one) tablet by mouth 023 Active montelukast (Singulair) 10 MG tablet Take 1 (one) tablet by mouth every evening 023 Active losartan (Cozaar) 100 MG tablet Take 0.5 (one-half) tablet by mouth once daily 45 tablet 3 024 2024 Active eszopiclone (Lunesta) 1 MG tablet TAKE 1 TABLET BY MOUTH EVERY DAY AT BEDTIME 90 tablet 3 024 Active betamethasone dipropionate (Diprosone) 0.05 % cream Apply to affected area 2 times daily Active tacrolimus (Protopic) 0.1 % ointmentIndicati ons:Other pruritus Apply to affected areas two times daily. 30 days supply. 100 g 11 024 Active fexofenadine (Diana) 180 MG tablet Take 1 (one) tablet by mouth once daily 025 Active suvorexant (Belsomra) 5 MG tabletIndication s:Type 2 diabetes mellitus with other circulatory complications (HCC) Take 1 (one) tablet by mouth nightly as needed for Insomnia 30 tablet 5 025 Active celecoxib (CeleBREX) 200 MG capsule Take 1 (one) capsule by mouth 2 times daily as needed (pain) 60 capsule 3 025 Active triamcinolone acetonide (Kenalog) 0.1 % creamIndications :Other pruritus Apply to affected area on trunk and extremities BID. 30 day supply. 454 g 11 025 Active citalopram (CeleXA) 40 MG tablet Take 1 tablet (40 mg) every other day alternating with 1/2 tablet (20 mg) every other day. 135 tablet 3 025 Active triamcinolone acetonide (Kenalog) 0.1 % creamIndications :Other pruritus Apply to affected area on trunk and extremities BID. 30 day supply. 454 g 1 025 2024 Discontinued(R eorder) citalopram (CeleXA) 40 MG tablet Take 0.5 (one-half) tablet by mouth once daily 90 tablet 3 025 2024 Discontinued Active Problems Problem Noted Date Diagnosed Date Diabetes mellitus type II, non insulin dependent 03/14/2019 Essential hypertension 03/14/2019 Migraine with aura and witho ut status migrainosus, not intractable 03/25/2016 Sensorineural hearing loss 01/15/2016 Dizziness and giddiness 01/13/2016 Other vitreous opacities, unspecified eye 2014 Encounters Date Type Department Care Team Description 05/07/2025 Orders Only [facility] - Geriatrics [address] [place] [address], [place] [address] Enedina Valdes MD 05/06/2025 1:10 PM CDT Office Visit [facility] - Dermatology [address] [place] [address], [place] [address] Melanie Williamson MD Other pruritus (Primary Dx) 05/06/2025 Travel 04/24/2025 Orders Only [facility] Ger[facility]s [address] [place] [address], [place] [address] Enedina Valdes MD Neck pain 04/10/2025 Orders Only [facility] - Geriatrics [address] [place] [phone] Enedina Valdes MD 04/02/2025 1:00 PM CDT - 04/02/2025 11:59 PM CDT Hospital Encounter [facility] - Orthopedics [address] [place] [address], [address] [place] [phone] Rob Sears, [employer] SALES SUPERVISOR Discharge Disposition: Home or Self Care 04/02/2025 1:00 PM CDT Office Visit [facility] - Orthopedic Surgery [address] [place] [phone] Rob Sears, [employer] SAL[employer] SUPERVISOR Primary osteoarthritis of left hip (Primary Dx); Status post total replacement of right hip 04/02/2025 Travel 04/01/2025 Orders Only [facility] - Orthopedic Surgery [address] [place] [phone] Rob Sears, [employer] SAL[employer] SUPERVISOR Pain of left hip 03/26/2025 Refill [facility] Ger[facility]s [address] [place] [address], [place] [phone] Enedina Valdes MD MEDICATION REFILL 03/05/2025 Refill [facility] [address] [place] [phone] Enedina Valdes MD Refill Request 02/26/2025 Orders Only [facility] [address] [place] [phone] Enedina Valdes MD Unilateral primary osteoarthritis, right hip from Last 3 Months Immunizations Immunization Administration Dates Next Due Need primary monoval ent 12+ yr 0.3mL Purple [...] Used Date Smoking Tobacco: Former Cigarettes 0.5 52.5 S tarted: 1973 Smokeless Tobacco: Never Tobacco Cessation:Ready to Q uit: Not Asked; Counseling Given: Not Answered Alcohol Use Standard Drinks/Week Comments Yes 0 (1 standard drink = 0.6 oz pur e alcohol) PHQ-2 Answer Date Recorded Patient Health Questionnaire-2 Score 3 03/26/2025 Comments Unknown Sex and Gender Information Value Date Recorded Sex Assigned at Not on file Legal Sex Female 5:25 PM FOOD DEMONSTRATOR Gender Identity Not on file Sexual Orientation [...] Care Team (Late st Contact Info) Description 05/28/2025 10:30 AM CDT Office Visit [facility] - Ger[facility] [address] [place] [address], [facility] [place] [address] Enedina Valdes MD [address] [place], [place] [address] [place] [address] 05/06/2026 12:50 PM CDT Office Visit [facility] - Dermatology [address] [place] [address], [place] [phone] Melanie Williamson MD [facility] [facility] [place] [address] Health Maintenance Due Date Last Done Comments MEDICARE AWV 12 MONTHS 1940 DIABETES RETINOPATHY SCREENING 04/15/2024 05/20/2015, 04/24/2015, 04/17/2015, Additional history exists DIABETES-FOOT EXAM WITH MONOFILAMENT 04/15/2024 COVID-19 VACCINE ( season) 2024 02/08/2024, 07/06/2023, 09/18/2022, Additional history exists DEPRESSION SCREENING 11/13/2024 04/15/2024 DIABETES - URINE PROTEIN SCREENING 11/13/2024 INFLUENZA VACCINE (#1) 2025 , 08/10/2023, 08/09/2022, Additional history exists DIABETES-HGB A1C 07/25/2025 01/22/2025, 04/15/2024 DIABETES-SERUM CREATININE 01/22/20262024, 04/23/2024, 09/19/2023 DTAP/TDAP/TD VACCINES (2 - Td or Tdap) 08/25/2031 08/25/2021 ZOSTER VACCINE Completed 10/08/2022, 11/14, 09/09/2016, Additional history exists PNEUMOCOCCAL VACCINE 50+ Completed 023, 09/28/2017, 09/08/2016 Respiratory Syncytial Virus (RSV) Vaccine Pt: or over 60 yrs Completed 08/10/2023 BONE DENSITY TESTING Completed 10/08/2024 HEPATITIS B [...] 1:27 PM CDT Pain of left hip COMPREHENSIVE METABOLIC PANEL Routine 01/22/2025 11:21 AM CDT Essential hypertension HEMOGLOBIN A1C - POINT OF CARE (AMB) [facility] Routine 01/22/2025 9:35 AM CDT Type 2 diabetes mellitus with other circulatory complications DEXA BONE DENSITY AXIAL SKELETON Routine 10/08/2024 10:16 AM FOOD DEMONSTRATOR Vitamin D deficiency Age related osteoporosis, unspecified [...] in the lower lumbar spine. Procedure Note Kornia Delvalle MD - 04/02/2025 PROCEDURE: XR PELVIS [...] MD on 04/02/2025 1:31 PM Rob Sears [employer] SAL[employer] SUPERVISOR DIAGNOSTIC IMAGING ORDER MARYAM Final Result * (ABNORMAL) COMPREHENSIVE METABOLIC PANEL (01/22/2025 11:21 AM CDT) BUN 13 7 - 26 mg/dL 01/22/2025 12:11 PM [facility] Creatinine 0.77 0.56 - 0.96 mg/dL 01/22/2025 12:11 PM [facility] Sodium 137 136 - 145 mmol/L 01/22/2025 12:11 PM [facility] Potassium 4.2 3.5 - 4.5 mmol/L 01/22/2025 12:11 PM [facility] Chloride 104 98 - 107 mmol/L 01/22/2025 12:11 PM [facility] CO2 26 22 - 29 mmol/L 01/22/2025 12:11 PM [facility] Glucose 96 70 - 99 mg/dL 01/22/2025 12:11 PM [facility] Calcium 9.9 8.4 - 10.2 mg/dL 01/22/2025 12:11 PM [facility] Protein Total 7.7 6.0 - 8.3 g/dL 01/22/2025 12:11 PM [facility] Albumin 4.0 3.4 - 5.0 g/dL 01/22/2025 12:11 PM [facility] Bilirubin Total 0.8 0.2 - 1.2 mg/dL 01/22/2025 12:11 PM [facility] Alkaline Phosphatase 65 40 - 150 U/L 01/22/2025 12:11 PM [facility] ALT 29 5 - 55 U/L 01/22/2025 12:11 PM [facility] AST 30 5 - 34 U/L 01/22/2025 12:11 PM [facility] Anion Gap 7 6 - 16 01/22/2025 12:11 PM [facility] BUN/Creatinine Ratio 17 7 - 23 01/22/2025 12:11 PM [facility] Osmolality Calculated 284 275 - 295 mOsm/kg 01/22/2025 12:11 PM [facility] Albumin/Globulin Ratio 1.1 1.1 - 2.3 01/22/2025 12:11 PM [facility] eGFR by CKD-EPI 76(L) >=90 mL/min/1.7 3 m2 01/22/2025 12:11 PM [facility] Blood BLOOD SPECIMEN / Unknown Lab Venipuncture / Unknown 01/22/2025 11:21 AM CDT 01/22/2025 11:38 AM CDT us Crystal DOMINGUEZ LAB - CHEMISTRY ORDERABLES Final Result [facility] [address] [place] [address], [facility] [phone] * HEMOGLOBIN A1C - POINT OF CARE (AMB) [facility] (01/22/2025 9:35 AM CDT) Hemoglobin A1c POCT 6.0 % [address] BLOOD SPECIMEN / Unknown 01/22/2025 9:35 AM CDT us Enedina Valdes MD LAB - POINT OF CARE ORDERABLE S Final Result [address], [place] [address], [facility] [phone] * BONE DENSITY AXIAL SKELETON(1OR MORE SITES)[id number] (10/08/2024 10:16 AM FOOD DEMONSTRATOR) Anatomical Region Laterality Modality Other 10/08/2024 11:3 2 AM FOOD DEMONSTRATOR Narrative 10/14/2024 10:04 AM FOOD DEMONSTRATOR PROCEDURE: DEXA BONE DENSITY AXIAL SKELETON DATE/TIME [...] and below > Dictated by Claire Dale (Parimutuel Cashier) 10/08/2024 11:32 AM Marisa Becker DO have [...] and below > Dictated by Claire Dale (Parimutuel Cashier) 10/08/2024 11:32AM I, Marisa Harvey DO have personally reviewed and interpreted this examination/study. > Interpreting Provider: Marisa Harvey DO on 10/14/2024 10:04 AM Crystal Lemon [employer]USED [employer] SALES SUPERVISOR DEXA ORDERABLES Final Resu lt from Last 3 Months or Most Recently Relevant to Health Maintenance Insurance MEDICARE [facility] MEDICARE [employer] [facility] Care Teams Brim Flexer Relationship Specialty Start Date End Date Enedina Valdes MD [address] [address] PCP - General Internal Medicine Geriatric Medicine 02/06/25
[2025-05-20 08:51] VITALS: BP 184/84; PULSE 74; RESP 24; O2SAT 94
[2025-05-20 08:56] VITALS: BP 174/99; PULSE 84; RESP 16; O2SAT 93
[2025-05-20 09:06] VITALS: BP 162/92; PULSE 84; RESP 18; O2SAT 92
[2025-05-20 09:10] VITALS: BP 149/78; PULSE 68; RESP 18; O2SAT 98
== END 2025-05-20 09:39 | disposition home or self-care (01) ==
LOC: ASC 08:01
PROVIDERS: PCP Family Medicine; Visit Provider Anesthesiology Pain Medicine
PROC: (CPT 64490; principal; 2025-05-20 08:30)
DX: M47.812 Spondylosis without myelopathy or radiculopathy, cervical region (principal)
CPT/HCPCS: 64490; 64491; 99199